=== PATIENT | male | born 1950 | race Caucasian/White ===

== ENCOUNTER 2020-05-24 15:55 | Outpatient (CLI) | payer MEDICARE, SELFPAY ==
--- NOTE | 2020-05-24 | US_ITS ---
WS: [id number] RIGHT UPPER QUADRANT ULTRASOUND HISTORY: ABNORMAL LIVER FUNCTION COMPARISON: None available. Liver: Greater than 17 cm in length. Liver is poorly visualized. Liver is enlarged but no mass identi fied. The entire liver cannot be visualized. Gallbladder: Normally distended gallbladder with no stones or wall thickening. CBD: 0.4 cm Pancreas: Not visualized. Right kidney: 11.7 cm in length. Normal size and echogenicity. No hydronephrosis or mass. Aorta and IVC: Unremarkable abdominal aorta and IVC. No ascites. US/US liver [id number] IMPRESSION: 1. Technically difficult evaluation of the RIGHT upper quadrant. 2. Enlarged liver but otherwise poorly visualized. 3. Normal gallbladder.
== END 2020-05-24 15:56 | disposition home or self-care (01) ==
PROVIDERS: PCP Family Medicine; Visit Provider Family Medicine
DX: R94.5 Abnormal results of liver function studies (principal); R16.0 Hepatomegaly, not elsewhere classified
CPT/HCPCS: 76705

== ENCOUNTER 2020-12-25 13:21 | Emergency (ER) | payer MEDICARE, SELFPAY ==
[2020-12-25 13:32] VITALS: BP 127/79; PULSE 69; RESP 16; TEMP 36.7; O2SAT 98; BMI 24.6
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
== END 2020-12-25 15:09 | disposition home or self-care (01) ==
PROVIDERS: Emergency Provider Physician Assistant; PCP Family Medicine
DX: S00.33XA Contusion of nose, initial encounter (principal); V89.2XXA Person injured in unspecified motor-vehicle accident, traffic, initial encounter
CPT/HCPCS: 70450; 70486; 72125; 99282

== ENCOUNTER → 2022-02-26 12:37 | Outpatient (BNVA) | payer MEDICARE, SELFPAY | PROVIDERS: PCP Family Medicine; Visit Provider Internal Medicine Cardiovascular Disease | DX: R55 Syncope and collapse (principal) | CPT/HCPCS: 93270 ==

== ENCOUNTER → 2022-03-20 10:23 | Outpatient (BNVA) | payer MEDICARE, SELFPAY | PROVIDERS: PCP Family Medicine; Visit Provider Specialist | DX: R56.9 Unspecified convulsions (principal) | CPT/HCPCS: 95812; 95816 ==

== ENCOUNTER 2022-04-05 07:39 | Outpatient (CLI) | payer MEDICARE, SELFPAY ==
--- NOTE | 2022-04-05 07:58 | MR_ITS ---
WS: [id number] MRI HEAD WITH CONTRAST TECHNIQUE: Sagittal T1, T2 axial, T2 axial FLAIR, axial susceptibility weighted imaging, axial diffus ion weighted images, and coronal T2 images were obtained. Pre and post-T1 axial and post T1 coronal i mages. ADC and FSPGR images. CLINICAL INFORMATION: ALTERED CONSCIOUSNESS COMPARISON: CT 12/25/20 FINDINGS: No evidence of restricted diffusion to suggest acute ischemia. Ventricular system and basal cisterns are patent. Mild small vessel changes. No significant parenchymal volume loss. A few tiny chronic lac unar infarcts in the RIGHT cerebellum. Normal vascular flow voids at the skull base. No evidence of mass or mass effect. A few tiny chronic foci of hemosiderin. Small chronic lacunar infarct in the RIGHT frontal white matter with a small amount of hemosiderin. P aranasal sinuses are well aerated. Mild mucosal thickening in the mastoid air cells. Normal posterior nasopharynx. Normal parapharyngeal fat. Temporal lobes and hippocampal formations are normal in appearance. No abnormal intracranial enhancem ent. Normal optic chiasm and pituitary infundibulum. Normal cavernous sinuses and Meckel's cave. MR/MR head wo/w con [id number] IMPRESSION: 1. No evidence of restricted diffusion to suggest acute ischemia. 2. Mild small vessel changes. No significant parenchymal volume loss. 3. 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 4. Small chronic lacunar infarct in the RIGHT frontal white matter with small amount of hemosiderin. 5. No abnormal gadolinium enhancement. Normal dural venous sinuses. 6. No other suspicious findings.
[2022-04-05] MEDS: gadobenate dimeglumine 20 mL vial IV (08:52)
== END 2022-04-05 07:40 | disposition home or self-care (01) ==
PROVIDERS: PCP Family Medicine; Visit Provider Family Medicine
DX: R41.82 Altered mental status, unspecified (principal); I63.81 Other cerebral infarction due to occlusion or stenosis of small artery
CPT/HCPCS: 70553; A9577

== ENCOUNTER 2022-05-04 16:14 | Inpatient (IN) | payer MEDICARE, SELFPAY ==
[2022-05-04 16:20] VITALS: BP 134/86; PULSE 105; RESP 18; TEMP 36.7; O2SAT 95
--- NOTE | 2022-05-04 17:02 | ED_ITS ---
HPI - Extremity Problem General: Chief complaint: Extremity Problem,Nontraumatic Stated complaint: leg and feet swelling Time Seen by Provider: 05/04/22 16:38 History of Present Illness: Mr. Mora is a 72-year-old gentleman with history of fatty liver presenting to the emergency department for bilateral lower extremity edema. He notes onset of symptoms symmetric starting in the feet approximately 2 weeks ago however this progressively worsened and is now up to the top of the thigh. He notes heaviness but no pain. No skin changes or rash. He does note increased shortness of breath and generalized malaise as well as decreased urine output. Denies similar episodes in the past. No history of heart failure. Density symptoms is moderate to severe. No other specific changes in health, exacerbating, or alleviating factors identified. Onset (ago): week(s) Pain Consistency: constant Quality: aching Radiation: none Relieving factors: nothing Exacerbating factors: nothing Associated symptoms: Reports other Review of Systems General: Reports: 10 or more systems reviewed and unremarkable except in HPI and below PFSH ED PFSH: Medical History History of CVA (cerebrovascular accident) Lacunar infarcts on MRI S/P extracorporeal shock wave therapy Ureteral calculus Surgical History Hx of shoulder surgery Family History Father Stroke Mother CAD (coronary artery disease) Social History Smoking and tobacco status: never smoked Alcohol intake: never Marital status: Current occupational status: retired Physical Exam Const: COMMON NORMALS: alert GENERAL APPEARANCE: cooperative and well developed HENMT: COMMON NORMALS: normocephalic and atraumatic HEAD & SCALP: no rmocephalic and atraumatic Eye: COMMON NORMALS: conjunctivae normal CONJUNCTIVA: Yes conjunctivae normal SCLERA: sclerae normal Neck/C-Spine: COMMON NORMALS: supple GENERAL: Yes trachea midline Resp: COMMON NORMALS: clear to auscultation bilaterally EFFORT & INSPECTION: Yes able to speak in complete sentences AUSCULTATION: clear to auscultation bilaterally Cardio: COMMON NORMALS: regular rhythm RATE: tachycardic RHYTHM: regular rhythm GI: COMMON NORMALS: Soft to palpation PALPATION: Yes Soft to palpation and No Tenderness to palpation present (GI) PERCUSSION: normal to percussion Extremity: GENERAL: Yes normal exam except as noted and Yes edema Neuro: COMMON NORMALS: moves all extremities SENSORIUM/ORIENTATION: Yes alert and No Orientation impaired Psych: COMMON NORMALS: mental status grossly normal and Normal thought process present THOUGHT PROCESS: Normal thought process present Course Vital Signs: Vital signs: Vital Signs Temperature 98.2 F 05/07/22 14:07 Pulse Rate 73 05/07/22 14:07 Respiratory Rate 17 05/07/22 14:07 Blood Pressure 146/75 05/07/22 14:07 Pulse Oximetry 90 05/07/22 14:07 Oxygen Delivery Me thod 05/06/22 16:00 Oxygen Flow Rate 2 05/07/22 11:25 MDM - Extremity (Nontraumatic) Medical Decision Making 72-year-old gentleman presenting with bilateral lower extremity edema. Symptoms have become severe and have been progressive. EKG notable for sinus rhythm with normal axis and intervals, nonspecific T- segment abnormalities, no STEMI. Labs with no significant hematologic abnormality. Metabolic end with hyponatremia, hypokalemia, JAIR. Patient is transaminitis. Negative range for delta troponin. Marked decreased albumin with proteinuria on urinalysis dipstick along with hematuria though 0 -4 microscopy. Chest x-ray with mild bibasilar opacities, no lobar consolidation or pneumothorax. CT demonstrates bowel wall thickening as well as moderate volume ascites, pleural effusions, cirrhotic liver morphology. Most likely etiology of patient's symptoms is unclear. Focused differential is primary renal respiratory hepatic etiology. The results of ED evaluation were discussed with the patient including plan for admission due to requirement for level of care not available if discharged to prevent significant worsening/deterioration. Patient agreeable with plan. Discussed with hospitalist service who was agreeable to admit patient. Medical Records I reviewed the patient's medical records. Lab Data I reviewed the patient's lab results. 05/04/22 17:20 05/04/22 17:20 Radiology Impressions Chest X-Ray 05/04/22 17:08 IMPRESSION: Mild bibasilar opacity is present, consistent with atelectasis or pneumonia. Abdomen/Pelvis CT 05/04/22 18:16 IMPRESSION: 1. There is diffuse small bowel wall thickening, consistent with infectious, ischemic, or inflammatory enteritis. This is especially prominent involving the jejunum in the left upper quadrant. 2. There is wall thickening of the ascending and transverse colon and less prominently the descending and sigmoid colon with haziness of the adjacent fat compatible with reactive changes to ascites or mild colitis. 3. There is a moderate volume of ascites, pleural effusions and anasarca type changes. Mild cirrhotic liver morphology. 4. Nonspecific bibasilar consolidation is present, consistent with atelectasis, edema, or pneumonia. COMMENTS: Consistent with the [place] [employer]'s Incidental Findings Committee white paper (J Am Ranjit Radiol 2018): Any incidental renal lesion less than 1 cm or classified as too small to characterize, or any incidental cystic renal lesion characterized as simple-appearing, is likely benign. No follow-up imaging is recommended for these lesions per consensus recommendations based on imaging criteria. Laboratory Results WBC 5.8 10^3/uL (4.0-10.0) 05/04/22 17:20 RBC 4.83 10^6/uL (4.1-5.3) 05/04/22 17:20 Hgb 15.5 g/dL (11.7-16.6) 05/04/22 17:20 Hct 46.6 % (42.0-52.0) 05/04/22 17:20 MCV 96.5 fl (80-94) H 05/04/22 17:20 MCH 32.1 pg (28.0-34.0) 05/04/22 17:20 MCHC 33.3 g/dL (30.0-36.0) 05/04/22 17:20 RDW 12.9 % (12.1-15.1) 05/04/22 17:20 Plt Count 234 10^3/cmm (130-400) 05/04/22 17:20 MPV 10.0 fL (7.4-10.4) 05/04/22 17:20 Neut % (Auto) 77.6 % 05/04/22 17:20 Lymph % (Auto) 13.0 % 05/04/22 17:20 [place] % (Auto) 6.3 % 05/04/22 17:20 Eos % (Auto) 2.6 % 05/04/22 17:20 Baso % (Auto) 0.3 % 05/04/22 17:20 Neut # (Auto) 4.53 10^3/uL (1.8-7.7) 05/04/22 17:20 Lymph # (Auto) 0.8 10^3/uL (0.8-4.8) 05/04/22 17:20 [place] # (Auto) 0.4 10^3/uL (0.2-0.9) 05/04/22 17:20 Eos # (Auto) 0.2 10^3/uL (0.0-0.8) 05/04/22 17:20 Baso # (Auto) 0.0 10^3/uL (0.0-0.1) 05/04/22 17:20 Nucleated RBC % (auto) 0 % 05/04/22 17:20 Nucleated RBCs # 0.0 /100WBC 05/04/22 17:20 PT 13.60 SECONDS (12.1-14.9) 05/04/22 17:20 INR 1.01 (0.8-1.2) 05/04/22 17:20 Sodium 130 mmol/L (136-145) L 05/04/22 17:20 Potassium 5.3 mmol/L (3.5-5.1) H 05/04/22 17:20 Chloride 98 mmol/L (98-107) 05/04/22 17:20 Carbon Dioxide 28 mmol/L (22-29) 05/04/22 17:20 Anion Gap 9.3 (5-19) 05/04/22 17:20 BUN 58 mg/dL (8-23) H 05/04/22 17:20 Creatinine 1.4 mg/dL (0.7-1.2) H 05/04/22 17:20 GFR Calculation Not Reportable 05/04/22 17:20 Glucose 117 mg/dL (65-115) H 05/04/22 17:20 Estimat Average Glucose 103 05/04/22 17:20 Estimat Average Glucose Cancelled 05/04/22 17:20 Hemoglobin A1c 5.2 % (4.0-6.0) 05/04/22 17:20 Hemoglobin A1c Cancelled 05/04/22 17:20 Calculated Osmolality 287 mOsm/kg (285-295) 05/04/22 17:20 Lactate 1.3 mmol/L (0.5-2.2) 05/04/22 17:20 Calcium 8.0 mg/dL (8.5-10.5) L 05/04/22 17:20 Magnesium 3.0 mg/dL (1.7-2.3) H 05/04/22 17:20 Total Bilirubin 0.2 mg/dL (0.15-1.2) 05/04/22 17:20 AST 55 U/L (0-40) H 05/04/22 17:20 ALT 46 U/L (0-41) H 05/04/22 17:20 Alkaline Phosphatase 318 U/L (40-130) H 05/04/22 17:20 Troponin T Baseline 46 ng/L (0-15) H 05/04/22 17:20 Troponin T 120 Minute 42.92 ng/L (0-15) H 05/04/22 19:37 Delta Troponin T -3.08 ABS# (0-10) L 05/04/22 19:37 NT-Pro-B Natriuret Pep 764 pg/mL (0-125) H 05/04/22 17:20 Total Protein 4.1 g/dL (6.6-8.7) L 05/04/22 17:20 Albumin 1.7 g/dL (3.5-5.2) L 05/04/22 17:20 Globulin 2.4 g/dL (1.3-4.6) 05/04/22 17:20 TSH 2.34 uIU/mL (0.27-4.20) 05/04/22 17:20 Urine Color Yellow (Yellow) 05/04/22 18:00 Urine Appearance Sl hazy (CLEAR) A 05/04/22 18:00 Urine pH 5 (5-7) 05/04/22 18:00 Ur Specific [place] 1.025 (1.005-1.030) 05/04/22 18:00 Urine Protein 3+ (Negative) H 05/04/22 18:00 Urine Glucose (UA) Norm (Normal) 05/04/22 18:00 Urine Ketones Negative (Negative) 05/04/22 18:00 Urine Blood 2+ (Negative) H 05/04/22 18:00 Urine Nitrate Negative (Negative) 05/04/22 18:00 Urine Bilirubin Neg (Negative) 05/04/22 18:00 Urine Urobilinogen Norm mg/dL (Negative) 05/04/22 18:00 Ur Leukocyte Esterase Negative (Negative) 05/04/22 18:00 Urine RBC 0-4 /hpf (0-2) H 05/04/22 18:00 Urine WBC None /hpf (0-5) 05/04/22 18:00 Ur Squamous Epith Cells None /hpf (0-5) 05/04/22 18:00 Amorphous Sediment Trace /hpf 05/04/22 18:00 Urine Bacteria Trace /hpf (NONE) 05/04/22 18:00 Fine Granular Casts 10-15 /lpf H 05/04/22 18:00 U Random Total Protein 510 mg/dL 05/04/22 20:55 Urine Creatinine 104 mg/dL (39-259) 05/04/22 20:55 Complement C3 187 mg/dL (90-180) H 05/04/22 17:20 Complement C4 59 mg/dL (10-40) H 05/04/22 17:20 Hepatitis A IgM Ab Non-reactive (Nonreactive) 05/04/22 17:20 Hep Bs Antigen Non-reactive (Nonreactive) 05/04/22 17:20 Hep Bs Antigen Non-reactive (Nonreactive) 05/04/22 17:20 Hep Bs Antibody 121.5 (11.5-1000) 05/04/22 17:20 Hep B Core IgM Ab Non-reactive (Nonreactive) 05/04/22 17:20 Hepatitis C Antibody Non-reactive (Nonreactive) 05/04/22 17:20 Discharge Plan Discharge Patient Disposition: Admitted As Inpatient Admit Provider: Hever Murphy Clinical Impression: Bilateral leg edema, Creatinine elevation, Hyperkalemia, Hyponatremia, Transaminitis, Hypoalbuminemia, Cirrhosis, Enterocolitis Condition: Stable Discharge Diet: Low Salt Discharge Activity: Increase activity as tolerated Coding Level of Care Code ED Dye House Wheel Operator for Bravo Martinez
--- NOTE | 2022-05-04 17:08 | ECG_ITS ---
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 Measurements Intervals [place] Rate: 90 P: -30 TN: 179 QRS: 78 QRSD: 86 T: 7 QT: 321 QTc: 393 Interpretive Statements SINUS RHYTHM LOW QRS VOLTAGE IN PRECORDIAL LEADS [QRS DEFLECTION < 1.0 mV IN CHEST LEADS] POSSIBLE ANTERIOR MYOCARDIAL INFARCTION , PROBABLY OLD [30 ms Q WAVE IN V3/V4, OR R < 0.2 mV IN V4] No previous ECG available for comparison Electronically Signed On 05-04-2022 19:33:47 OPTO MECHANICAL TECHNICIAN by Ana Blackwell M.D. [id number]
--- NOTE | 2022-05-04 17:08 | XRR_ITS ---
PROCEDURE INFORMATION: Exam: XR Chest Exam date and time: 05/04/2022 5:20 PM Age: 72 years old Clinical indication: Shortness of breath; Additional info: SOB TECHNIQUE: Imaging protocol: Radiologic exam of the chest. Views: 1 view. COMPARISON: CT cervical spin wo con* [id number] 12/25/2020 1:55 PM FINDINGS: Lungs: Mild bibasilar opacity is present, consistent with atelectasis or pneumonia. Upper lobes are clear. Pleural spaces: There are small bilateral pleural effusions. Heart/Mediastinum: The heart is enlarged. Bones/joints: No acute abnormality. XR/XR chest 1V portable [id number] IMPRESSION: Mild bibasilar opacity is present, consistent with atelectasis or pneumonia.
[2022-05-04 17:33] LABS: Basophils % 0.3 %; Eosinophils # 0.2 10^3/uL (0.0-0.8); Eosinophils % 2.6 %; Hematocrit 46.6 % (42.0-52.0); Hemoglobin 15.5 g/dL (11.7-16.6); Lymphocytes # 0.8 10^3/uL (0.8-4.8); Mean Corpuscular HGB Conc 33.3 g/dL (30.0-36.0); Mean Corpuscular Hemoglobin 32.1 pg (28.0-34.0); Mean Corpuscular Volume 96.5 fl (80-94); Monocytes # 0.4 10^3/uL (0.2-0.9); Monocytes % 6.3 %; Neutrophils # 4.53 10^3/uL (1.8-7.7); Neutrophils % 77.6 %; Nucleated Red Blood Cells % 0 %; Platelet Count 234 10^3/cmm (130-400); Red Blood Count 4.83 10^6/uL (4.1-5.3); Red Cell Distribution Width 12.9 % (12.1-15.1); White Blood Count 5.8 10^3/uL (4.0-10.0)
[2022-05-04 17:59] LABS: Lactate (Lactic Acid level) 1.3 mmol/L (0.5-2.2)
[2022-05-04 18:00] VITALS: BP 142/90; PULSE 98; O2SAT 94
[2022-05-04 18:03] LABS: Troponin(5th) Baseline 46 ng/L (0-15)
[2022-05-04 18:11] LABS: Alanine Aminotransferase 46 U/L (0-41); Albumin Level 1.7 g/dL (3.5-5.2); Alkaline Phosphatase 318 U/L (40-130); Anion Gap 9.3 (5-19); Aspartate Amino Transferase 55 U/L (0-40); Blood Urea Nitrogen 58 mg/dL (8-23); Carbon Dioxide 28 mmol/L (22-29); Chloride 98 mmol/L (98-107); Globulin 2.4 g/dL (1.3-4.6); Glucose 117 mg/dL (65-115); NT Pro B Type Natriuretic Pept 764 pg/mL (0-125); Osmolality Calculated 287 mOsm/kg (285-295); Potassium 5.3 mmol/L (3.5-5.1); Sodium 130 mmol/L (136-145); Total Bilirubin 0.2 mg/dL (0.15-1.2); Total Protein 4.1 g/dL (6.6-8.7)
--- NOTE | 2022-05-04 18:16 | CTR_ITS ---
PROCEDURE INFORMATION: Exam: CT Abdomen And Pelvis With Contrast Exam date and time: 05/04/2022 6:24 PM Age: 72 years old Clinical indication: Abdominal tenderness and bloating; Additional info: Abd fullness, transaminitis, HX liver disease TECHNIQUE: Imaging protocol: Computed tomography of the abdomen and pelvis with contrast. Radiation optimization: All CT scans at this facility use at least one of these dose optimization techniques: automated exposure control; mA and/or kV adjustment per patient size (includes targeted exams where dose is matched to clinical indication); or iterative reconstruction. Contrast material: OMNI 350; Contrast volume: 100 ml; Contrast route: INTRAVENOUS (IV); Other protocol: This patient has received 0 known CTs and 0 known cardiac nuclear medicine studies in the 12 months prior to the current study. COMPARISON: CT kidney stone [id number] 09/24/2016 10:46 AM RADIATION DOSE METRICS: Total DLP (mGy-cm): 1062.03 FINDINGS: Lungs: Nonspecific bibasilar consolidation is present, consistent with atelectasis, edema, or pneumonia. Pleural spaces: There is a small left pleural effusion and a small to moderate sized right pleural effusion. Heart: The heart is enlarged. Diaphragm: A small hiatal hernia is present. Liver: The liver has a finely nodular contour, consistent with cirrhosis. Gallbladder and bile ducts: Normal. No calcified stones. No ductal dilation. Pancreas: The pancreas is normal. Spleen: The spleen is normal. Adrenal glands: The adrenal glands are normal. Kidneys and ureters: There is no evidence of hydronephrosis. There is no evidence of renal calcifications. Two separate 1.8 cm simple cysts midpole right kidney are noted. Stomach and bowel: There is diffuse small bowel wall thickening, consistent with infectious, ischemic, or inflammatory enteritis. This is especially prominent involving the jejunum in the left upper quadrant. There is wall thickening of the ascending and transverse colon and less prominently the descending and sigmoid colon with haziness of the adjacent fat compatible with reactive changes to ascites or mild colitis. There is no evidence of intestinal perforation or obstruction. Appendix: The appendix is not definitively identified. However, there is no CT evidence of a right lower quadrant inflammatory process. Intraperitoneal space: There is a moderate volume of ascites. No abscess or free intraperitoneal air. Vasculature: Unremarkable.No abdominal aortic aneurysm. Lymph nodes: Unremarkable.No enlarged lymph nodes. There is a unchanged densely calcified lymph node in the mesentery left lower quadrant. Urinary bladder: There is nonspecific bladder wall thickening. This may be related to incomplete distention. Reproductive: The prostate demonstrates mild nonspecific enlargement. The seminal vesicles are normal. Bones/joints: Unremarkable. No acute fracture. Soft tissues: Anasarca type changes are noted. CT/CT abdomen pelvis w con* [id number] IMPRESSION: 1. There is diffuse small bowel wall thickening, consistent with infectious, ischemic, or inflammatory enteritis. This is especially prominent involving the jejunum in the left upper quadrant. 2. There is wall thickening of the ascending and transverse colon and less prominently the descending and sigmoid colon with haziness of the adjacent fat compatible with reactive changes to ascites or mild colitis. 3. There is a moderate volume of ascites, pleural effusions and anasarca type changes. Mild cirrhotic liver morphology. 4. Nonspecific bibasilar consolidation is present, consistent with atelectasis, edema, or pneumonia. COMMENTS: Consistent with the [place] [employer]'s Incidental Findings Committee white paper (J Am Ranjit Radiol 2018): Any incidental renal lesion less than 1 cm or classified as too small to characterize, or any incidental cystic renal lesion characterized as simple-appearing, is likely benign. No follow-up imaging is recommended for these lesions per consensus recommendations based on imaging criteria.
[2022-05-04] MEDS: iohexol 350 mg/mL 500 mL Btl (per mL) IV (18:28)
[2022-05-04 18:43] LABS: Add Urine Microscopic? YES; Bilirubin Urine Neg (Negative); Blood Urine 2+ (Negative); Glucose Urine UA Norm (Normal); Ketones Urine Negative (Negative); Leukocyte Esterase Urine Negative (Negative); Nitrate Urine Negative (Negative); Protein Urine 3+ (Negative); Specific Gravity, Urine 1.025 (1.005-1.030); Urine Appearance SL Hazy (CLEAR); Urine Color Yellow (Yellow); Urobilinogen Urine Norm (Negative); pH Urine 5 (5-7)
[2022-05-04 18:48] LABS: Amorphous Sediment Urine TRACE /hpf; Bacteria Urine TRACE /hpf; RBC Urine 0-4 /hpf (0-2)
[2022-05-04 18:49] LABS: Add Urine Culture? No
[2022-05-04 19:52] LABS: INR 1.01 (0.8-1.2)
--- NOTE | 2022-05-04 20:00 | PM.HP ---
Providers/Chief Complaint Admitting Physician: Hever Murphy MD Primary Care Provider: Gregory Wilson MD Chief Complaint: leg and feet swelling History of Present Illness Zurdo Mora is a 72 year old male who presents to the hospital with history of swelling in his feet and legs, progressively increasing over the last month and now with swelling of his abdomen. He reports no fevers. He has had no nausea, vomiting, or diarrhea. No history of this ever happening in the past. No chest discomfort. No history of heart failure. His only medical problem has been a history of fatty liver, and some asymptomatic stroke that was picked up on imaging several years ago. He reports no significant medication use other than aspirin daily. reports he had some confusion in the past, but none currently. He has had some shortness of breath as well. Review of Systems General: Reports: 10 or more systems reviewed and unremarkable except in HPI and below Const: Reports: fatigue; Denies: fever(s) or chills Eyes: Denies: change in vision ENMT: Denies: throat pain Card: Reports: edema, swelling of feet/ankles and dyspnea on exertion; Denies: chest pain Resp: Reports: dyspnea; Denies: productive cough or non-productive cough GI: Denies: abdominal pain, nausea, vomiting, hematochezia or melena : Reports: urinary frequency and urinary dribbling; Denies: flank pain Musc: Denies: neck pain Skin/Breast: Denies: rash Neuro: Denies: headache(s) Psych: Denies: anxiety or depression Endo: Denies: polyuria Medications/Allergies Home Medications Medication Instructions Recorded Confirmed Last Taken Type lactulose 10 gram/15 mL oral 30 g PO BID 03/20/22 03/20/22 Unknown History solution Allergies Allergy/AdvReac Type Severity Reaction Status Date / Time No Known Allergies Allergy Unverified 03/20/22 13:27 PFSH Acute PFSH: Medical History (Updated 05/04/22 @ 20:17 by Hever Murphy MD) History of CVA (cerebrovascular accident) Lacunar infarcts on MRI S/P extracorporeal shock wave therapy Ureteral calculus Surgical History (Updated 05/04/22 @ 20:11 by Hever Murphy MD) Hx of shoulder surgery Family History Father Stroke Mother CAD (coronary artery disease) Social History Smoking and tobacco status: never smoked Alcohol intake: never Marital status: Current occupational status: retired Vitals/I&O/Wt Last Vital Signs Temp 98.0 F 05/04/22 16:20 Pulse 98 05/04/22 18:00 Resp 18 05/04/22 16:20 BP 142/90 05/04/22 18:00 Pulse Ox 94 05/04/22 18:00 O2 Del Method 05/04/22 18:00 Weight last 48 hrs Weight 81.647 kg Physical Exam Narrative: General exam is a white male, conversant, in no distress but markedly swollen HEENT: Atraumatic normocephalic. Pupils equally round. Oropharynx clear. Neck is supple no lymphadenopathy thyromegaly Cardiovascular regular rate and rhythm, heart sounds distant, no murmur Lungs clear no wheezing or crackles Abdomen is soft.'s ascites with fluid wave is noted. Nontender. No obvious organomegaly exam is deferred Extremities show 3+ edema bilaterally. No erythema. No cyanosis or clubbing. Skin no rash Neuro no obvious focal deficits Data 05/04/22 17:20 05/04/22 17:20 Other Labs: INR is 1.01 Calcium 8.0 AST 55, ALT 46, alk phos 318 Troponin 46 BNP 764 Albumin 1.7 Urinalysis with 3+ protein, 0-4 reds, 10-15 granular casts Abdomen pelvis CT demonstrated some diffuse small bowel wall thickening. Moderate ascites, pleural effusions, anasarca. Mild cirrhosis of liver noted. I reviewed this as well. Some bladder distention Chest x-ray by my read demonstrates no infiltrate, blunting of bilateral hemidiaphragms likely secondary to effusions EKG which I reviewed demonstrates sinus rhythm, normal axis, poor R wave progression cannot rule out anterior MN in the past A&P Assessment and plan (1) Anasarca: Patient presents with significant anasarca. 40 mg of Lasix IV now and every 12 hours with monitoring renal function closely. Although he has potential past history of cirrhosis his platelet count is normal, his INR is normal. I am worried he may have nephrotic syndrome as the etiology of this secondary to his 3+ proteinuria. See notations under hypoalbuminemia We will obtain echocardiogram (2) Hyperkalemia: Lasix IV now BMP tomorrow morning (3) Acute kidney injury: This may be secondary to fluid overload Monitor renal function closely with diuresis Bladder scan to check postvoid residual (4) Transaminitis: This could be secondary to fluid overload. Monitor with diuresis Check hepatitis panel (5) Hypoalbuminemia: Patient with significant hypoalbuminemia His degree of cirrhosis may not explain this He has 3+ proteinuria in his urine Spot urine protein and creatinine. Nephrology consultation Blood sugar is not significantly elevated but will check hemoglobin A1c Lipid profile in the morning (6) Cirrhosis: INR is normal. Platelet count is normal Check ammonia level as he has past history of confusion Plan Other medical problems as outlined in past medical history Full code currently Heparin for DVT prophylaxis Attestations Medical Necessity Statement*: Will require greater than 2 midnight stay secondary to significant anasarca requiring IV diuresis Diagnoses Anasarca R60.1 Hyperkalemia E87.5 Acute kidney injury N17.9 Transaminitis R74.01 Hypoalbuminemia E88.09 Cirrhosis K74.60 Time Spent (min) 55
[2022-05-04 20:21] VITALS: BP 160/93; PULSE 84; RESP 16; O2SAT 94
[2022-05-04] MEDS: FUROsemide 10 mg/mL SDV 4mL 40 MG IVP (20:34)
[2022-05-04 20:46] LABS: Troponin 5 2HR 42.92 ng/L (0-15)
[2022-05-04 21:03] LABS: Troponin 5 2HR Delta -3.08 ABS# (0-10)
--- NOTE | 2022-05-04 21:03 | ECG_ITS ---
[facility] Test Date: 2022-05-04 Pat Name: Zurdo Mora Department: Room: Gender: Male Associate Account Executive: : 1950 Requested By: Jake Jeronimo Order Number: [id number] Juliocesar MD: Ana Blackwell M.D. Measurements Intervals [place] Rate: 81 P: -27 ND: 199 QRS: 70 QRSD: 84 T: 29 QT: 350 QTc: 407 Interpretive Statements SINUS RHYTHM LOW QRS VOLTAGE IN PRECORDIAL LEADS [QRS DEFLECTION < 1.0 mV IN CHEST LEADS] POSSIBLE ANTERIOR MYOCARDIAL INFARCTION , PROBABLY OLD [30 ms Q WAVE IN V3/V4, OR R < 0.2 mV IN V4] Compared to ECG 05/04/2022 17:33:38 No significant changes Electronically Signed On 05-05-2022 22:14:10 ALUMINUM SIDING APPLICATOR by Ana Blackwell M.D. [id number]
[2022-05-04 21:04] LABS: Thyroid Stimulating Hormone 2.34 uIU/mL (0.27-4.20)
[2022-05-04 21:23] LABS: Urine Creatinine 104 mg/dL (39-259)
[2022-05-04 21:36] LABS: Urine Protein Random 510 mg/dL
[2022-05-04 21:45] VITALS: BP 136/86; PULSE 73; RESP 16; TEMP 36.5; O2SAT 90
[2022-05-04] MEDS: heparin 5,000 unit/mL INJ 1 mL 5000 UNIT SUBCUT (22:00)
--- NOTE | 2022-05-04 22:51 | ECG_ITS ---
[facility] Test Date: 2022-05-04 Pat Name: Zurdo Mora Department: Room: 250 Gender: Male Cyber Defense Forensics Analyst: : 1950 Requested By: Jake Jeronimo Order Number: [id number] Juliocesar MD: Ana Blackwell M.D. Measurements Intervals [place] Rate: 74 P: 118 MO: 198 QRS: 47 QRSD: 86 T: 47 QT: 366 QTc: 407 Interpretive Statements SINUS RHYTHM LOW QRS VOLTAGE IN PRECORDIAL LEADS [QRS DEFLECTION < 1.0 mV IN CHEST LEADS] POSSIBLE ANTERIOR MYOCARDIAL INFARCTION , PROBABLY OLD [30 ms Q WAVE IN V3/V4, OR R < 0.2 mV IN V4] Compared to ECG 05/04/2022 21:03:12 No significant changes Electronically Signed On 05-05-2022 22:14:21 MANUFACTURING APPLICATIONS ENGINEER by Ana Blackwell M.D. [id number]
[2022-05-04 23:37] LABS: Estmated Average Glucose 103; Hemoglobin A1C 5.2 % (4.0-6.0)
[2022-05-04 23:53] LABS: Troponin 5 6HR 45.01 ng/L (0-15)
[2022-05-05 00:09] LABS: Troponin 5 6HR Delta -0.99 ng/L (0-12)
[2022-05-05 01:09] LABS: Hepatitis A Antibody IgM Non-Reactive (Nonreactive); Hepatitis B Core IgM Non-Reactive (Nonreactive); Hepatitis B Surface Antigen Non-Reactive (Nonreactive); Hepatitis C Virus Antibody Non-Reactive (Nonreactive)
[2022-05-05 03:14] LABS: Complement C3 187 mg/dL (90-180)
[2022-05-05 03:24] LABS: Hepatitis B Surface AB 121.5 (11.5-1000); Hepatitis B Surface Antigen Non-Reactive (Nonreactive)
[2022-05-05 04:00] VITALS: BP 159/94; PULSE 81; RESP 16; TEMP 36.4; O2SAT 93
[2022-05-05 05:03] LABS: Basophils % 0.8 %; Eosinophils # 0.2 10^3/uL (0.0-0.8); Eosinophils % 4.2 %; Hematocrit 40.7 % (42.0-52.0); Hemoglobin 13.8 g/dL (11.7-16.6); Lymphocytes % 19.5 %; Mean Corpuscular HGB Conc 33.9 g/dL (30.0-36.0); Mean Corpuscular Hemoglobin 32.5 pg (28.0-34.0); Mean Corpuscular Volume 95.8 fl (80-94); Mean Platelet Volume 9.8 fL (7.4-10.4); Monocytes # 0.4 10^3/uL (0.2-0.9); Monocytes % 8.5 %; Neutrophils # 3.36 10^3/uL (1.8-7.7); Neutrophils % 66.8 %; Nucleated Red Blood Cells % 0 %; Platelet Count 198 10^3/cmm (130-400); Red Blood Count 4.25 10^6/uL (4.1-5.3)
[2022-05-05] MEDS: albumin 25 G/100 ML BAG 60 G IV ×3 (05:03→19:58)
[2022-05-05 05:15] LABS: Ammonia 17 umol/L (16-60)
[2022-05-05 05:32] LABS: Alanine Aminotransferase 36 U/L (0-41); Albumin Level 1.4 g/dL (3.5-5.2); Alkaline Phosphatase 244 U/L (40-130); Anion Gap 9.5 (5-19); Aspartate Amino Transferase 37 U/L (0-40); Blood Urea Nitrogen 48 mg/dL (8-23); Calcium 7.6 mg/dL (8.5-10.5); Carbon Dioxide 25 mmol/L (22-29); Chloride 99 mmol/L (98-107); Globulin 2.6 g/dL (1.3-4.6); Glucose 88 mg/dL (65-115); Osmolality Calculated 280 mOsm/kg (285-295); Potassium 4.5 mmol/L (3.5-5.1); Sodium 129 mmol/L (136-145); Total Bilirubin 0.2 mg/dL (0.15-1.2)
[2022-05-05 05:33] LABS: Hepatitis B Surface AB 98.1 (11.5-1000); Hepatitis B Surface Antigen Non-Reactive (Nonreactive)
[2022-05-05 05:34] LABS: Chol HDL Ratio 6.34 mg/dL (1.0-5.00); Cholesterol 260 mg/dL (0-200); Complement C3 151 mg/dL (90-180); HDL Cholesterol 41 mg/dL (60-100); LDL Cholesterol Calculated 190 mg/dL (50-129); LDL HDL Ratio 4.63 RATIO (0.00-3.22); Triglycerides 144 mg/dL (0-150)
--- NOTE | 2022-05-05 06:00 | USCV_ITS ---
Zurdo Mroa Age: 72 Gender: M : 1950 Exam Date: 05/05/2022 08:38 Ordering Phys: Hever Murphy MD Technologist: SAMUEL Exam Location: [facility] Indication: elevated bnp BP: / HR: 113 Rhythm: Sinus Technical Quality: Adequate MEASUREMENTS (Male / Female) Normal Values 2D ECHO LV Diastolic Diameter PLAX 5.4 cm 4.2 - 5.9 / 3.9 - 5.3 cm LV Systolic Diameter PLAX 3.3 cm IVS Diastolic Thickness 0.8 cm 0.6 - 1.0 / 0.6 - 0.9 cm IVS Systolic Thickness 1.4 cm LVPW Diastolic Thickness 0.7 cm 0.6 - 1.0 / 0.6 - 0.9 cm LVPW Systolic Thickness 1.3 cm LVOT Diameter 2.5 cm LV Ejection Fraction 2D Teich 67.8 % LV Ejection Fraction MOD 2C 64.1 % LV Ejection Fraction 2C AL 65.8 % LA Diameter 4.2 cm IVC Diameter 1.5 cm M-MODE Aortic Annulus Diameter 3.9 cm LA Ao Ratio MM 1.1 MV E Point Septal Separation 0.4 cm DOPPLER AV Peak Velocity 104.0 cm/s LVOT Peak Velocity 93.0 cm/s AV Area Cont Eq vti 5.1 cm squared AV Area Cont Eq pk 4.6 cm squared MV Area PHT 3.1 cm squared Mitral E to A Ratio 0.8 MV E' Velocity 37.0 cm/s Mitral E to MV E' Ratio 7.8 Mitral E to LV E' Lateral Ratio 6.8 Mitral E to LV E' Septal Ratio 9.1 TR Peak Velocity 230.0 cm/s TR Peak Gradient 21.2 mmHg TV Peak E Velocity 90.0 cm/s Right Atrial Pressure 3.0 mmHg Pulmonary Artery Systolic Pressu 24.2 mmHg PV Peak Velocity 123.0 cm/s FINDINGS Left Ventricle Normal left ventricular size and systolic function, EF 64 %. No regional wall motion abnormalities. Grade I/IV diastolic dysfunction (abnormal relaxation filling pattern), normal to mildly elevated filling pressures. Right Ventricle The right ventricle is normal in size and function. Right Atrium The right atrium is normal in size. Left Atrium Mildly increased left atrial size. Mitral Valve Thickened mitral valve. Mild mitral valve regurgitation. Aortic Valve Mild aortic valve regurgitation. Tricuspid Valve Trace tricuspid valve regurgitation. Pulmonic Valve Pulmonic valve not well visualized. Pericardium Normal pericardium without effusion. Aorta Normal ascending aorta dimension. IVC Normal inferior vena cava. CONCLUSIONS Normal left ventricular size and systolic function, EF 64 %. No regional wall motion abnormalities. Grade I/IV diastolic dysfunction (abnormal relaxation filling pattern), normal to mildly elevated filling pressures. Thickened mitral valve. Mild mitral valve regurgitation. Mildly increased left atrial size. Mild aortic valve regurgitation. Trace tricuspid valve regurgitation. Estimated pulmonary artery peak systolic pressure 24 mm of Hg There is no pericardial effusion. There are no intracardiac masses. No similar previous studies are available for comparison Dr Ana Blackwell MD [facility] (Electronically Signed) Final Date: 05 May 2022 13:48 S
[2022-05-05 07:56] VITALS: BP 143/83; PULSE 71; RESP 18; TEMP 36.5; O2SAT 92
--- NOTE | 2022-05-05 08:04 | PC.PHAR ---
pt states he only takes aspirin 81mg qam
[2022-05-05] MEDS: FUROsemide 10 mg/mL SDV 4mL 40 MG IVP ×2 (08:59→19:58)
[2022-05-05] MEDS: heparin 5,000 unit/mL INJ 1 mL 5000 UNIT SUBCUT ×2 (08:59→21:13)
[2022-05-05] MEDS: aspirin 81 mg EC Tablet PO (08:59)
--- NOTE | 2022-05-05 10:27 | PM.PN ---
Subjective Subjective: He is doing slightly better than he did in the ER. He is still quite swollen in lower extremities. Edema reaching up to thighs and even lower belly. Vitals/I&O/Wt Last Vital Signs Temp 97.7 F 05/05/22 07:56 Pulse 71 05/05/22 07:56 Resp 18 05/05/22 07:56 BP 143/83 05/05/22 07:56 Pulse Ox 92 05/05/22 07:56 O2 Del Method 05/05/22 07:56 05/04/22 05/05/22 05/05/22 22:59 06:59 14:59 Intake Total 340 / 340 Output Total 200 / 200 250 / 450 Balance -200 / -200 -250 / -450 340 / 340 Weight last 48 hrs Weight 81.647 kg Physical Exam Narrative: at bedside Const: COMMON NORMALS: patient oriented x3 and alert GENERAL APPEARANCE: cooperative ORIENTATION/CONSCIOUSNESS: Yes awake HENMT: COMMON NORMALS: oropharynx normal Neck/C-Spine: COMMON NORMALS: no JVD Resp: COMMON NORMALS: normal respiratory effort and clear to auscultation bilaterally AUSCULTATION: clear to auscultation bilaterally Cardio: COMMON NORMALS: no JVD, regular rhythm, S1 normal heart sound present, S2 normal heart sound present and No murmurs present (Cardio) RHYTHM: regular rhythm HEART SOUNDS: S1 normal heart sound present and S2 normal heart sound present GI: COMMON NORMALS: Normal to inspection, nondistended, normoactive bowel sounds present, Soft to palpation and non-tender PALPATION: Yes Soft to palpation Extremity: COMMON NORMALS: no joint enlargement GENERAL: Yes edema (2-3+ LE, tapering proximally, but reaching up to proximal thighs) Neuro: COMMON NORMALS: patient oriented x3 and moves all extremities SENSORIUM/ORIENTATION: Yes alert Skin: COMMON NORMALS: no rashes or lesions noted GENERAL SKIN EXAM: no rashes or lesions noted Data 05/05/22 04:35 05/05/22 04:35 A&P Assessment and plan (1) Anasarca: STEPH reviewed, mildly negative balance, but not sure that is charted correctly. Intake charted as 340, output 450. Continue Lasix IV 40 mg every 12 hours, monitor I&O, weights. Admitting physician note reviewed. Pending echocardiogram. Follow-up. Significant hypoalbuminemia, albumin 1.4. In the setting of cirrhosis. Not hypotensive. Pending nephrology assessment for consideration of causes including HRS, nephrotic syndrome. Anasarca. 40 mg of Lasix IV now and every 12 hours with monitoring renal function closely. Although he has potential past history of cirrhosis his platelet count is normal, his INR is normal. I am worried he may have nephrotic syndrome as the etiology of this secondary to his 3+ proteinuria. See notations under hypoalbuminemia We will obtain echocardiogram CT scan reviewed also noted moderate ascites, pleural effusions and anasarca (2) Hyperkalemia: Resolved. With JAIR, follow-up potassium, at risk of electrolyte abnormalities especially with IV diuresis, with risk of arrhythmia. Add cardiac monitoring. Requesting repeat BMP tomorrow morning (3) Acute kidney injury: Continue diuresis. So far renal function allowing, no worsening creatinine, but without improvement needed. Creatinine reviewed at 1.4. BUN slightly better at 48. Reassessment chemistry panel for renal function requested. Monitor electrolytes, acid-base balance. Anion gap noted 9.5, bicarb 25. Magnesium 3. This may be secondary to fluid overload Monitor renal function closely with diuresis Received results of bladder scan CT scan reviewed, without signs of hydronephrosis (4) Transaminitis: This could be secondary to fluid overload. Monitor with diuresis Check hepatitis panel (5) Hypoalbuminemia: Appreciate nephrology consultation. Albumin slightly worse today down to 1.4. Requested follow-up. Lipid profile reviewed, Patient with significant hypoalbuminemia His degree of cirrhosis may not explain this He has 3+ proteinuria in his urine Spot urine protein and creatinine. Nephrology consultation Blood sugar is not significantly elevated but will check hemoglobin A1c Lipid profile in the morning (6) Cirrhosis: INR is normal. Platelet count is normal Ammonia level reviewed normal. Noted alkaline phosphatase elevation, today slightly better down to 244. May be stasis secondary to fluid overload. Follow-up echocardiogram. Continue diuresis. Follow-up liver function. Plan On CT additionally noted for thickening of ascending and transverse colon less prominently distended and sigmoid colon with haziness of adjacent fat compatible with reactive changes to ascites or mild colitis. He does not endorse any GI symptoms at this time. Continue to monitor for changes. Other medical problems as outlined in past medical history Full code currently Heparin for DVT prophylaxis Attestations Medical Necessity Statement*: Continue admission for assessment management of anasarca, JAIR, hypoalbuminemia, proteinuria in a gentleman with underlying liver cirrhosis. Diagnoses Anasarca R60.1 Hyperkalemia E87.5 Acute kidney injury N17.9 Transaminitis R74.01 Hypoalbuminemia E88.09 Cirrhosis K74.60
[2022-05-05 11:47] LABS: Creatine Phosphokinase 216 U/L (39-308)
[2022-05-05 12:00] VITALS: BP 134/79; PULSE 75; RESP 18; TEMP 36.5; O2SAT 94
[2022-05-05 16:00] VITALS: BP 143/80; PULSE 74; RESP 20; TEMP 36.4; O2SAT 95
--- NOTE | 2022-05-05 16:13 | PM.CONSULT ---
Providers/Reason For Consult Consulting Physician/Specialty*: /Nephrology Reason for Consult*: JAIR Attending Physician: Luther Stern Primary Care Provider: Gregory Wilson MD History of Present Illness History of Present Illness 72-year-old male with past medical history of fatty liver, history of CVA, presented to the emergency department, complaining of progressively worsening edema in the lower extremities as well as abdomen. Patient reports that he is aware of having fatty liver but was not told that he has liver cirrhosis. On further work-up in the ED patient underwent CT scan of abdomen and pelvis that revealed presence of liver cirrhosis as well as moderate ascites. Noted to have bilateral lower extremity edema. CT showed no hydronephrosis on both kidneys. His creatinine was elevated at 1.4, urine analysis showed 2+ protein and 2+ blood. Review of Systems Narrative: Other ROs negative Medications/Allergies Home Medications Medication Instructions Recorded Confirmed Last Taken Type aspirin 81 mg tablet,delayed 81 mg PO QAM 05/05/22 05/05/22 Unknown History release Allergies Allergy/AdvReac Type Severity Reaction Status Date / Time No Known Allergies Allergy Verified 05/05/22 08:04 Current Medications Generic Name Dose Route Start Last Admin Trade Name Freq PRN Reason Stop Dose Admin Aspirin 81 mg 05/05/22 09:00 05/05/22 08:59 Aspirin 81 Mg Ec Tablet PO 81 mg DAILY KIMMIE Administration Furosemide 40 mg 05/04/22 20:30 05/05/22 08:59 Furosemide 10 Mg/Ml Sdv 4ml IVP 40 mg Q12H KIMMIE Administration Heparin Sodium (Porcine) 5,000 unit 05/04/22 21:45 05/05/22 08:59 Heparin 5,000 Unit/Ml Inj 1 Ml SUBCUT 5,000 unit Q12H KIMMIE Administration Albumin Human 25 g in 100 mls @ 60 mls/hr 05/05/22 04:45 05/05/22 13:38 Albumin IV Infused Q8H KIMMIE Infusion PFSH Acute PFSH: Medical History (Updated 05/04/22 @ 20:17 by Hever Murphy MD) History of CVA (cerebrovascular accident) Lacunar infarcts on MRI S/P extracorporeal shock wave therapy Ureteral calculus Surgical History (Updated 05/04/22 @ 20:11 by Hever Murphy MD) Hx of shoulder surgery Family History Father Stroke Mother CAD (coronary artery disease) Social History Smoking and tobacco status: never smoked Alcohol intake: never Marital status: Current occupational status: retired Vitals/I&O/Wt Last Vital Signs Temp 97.5 F L 05/05/22 16:00 Pulse 74 05/05/22 16:00 Resp 20 H 05/05/22 16:00 BP 143/80 05/05/22 16:00 Pulse Ox 95 05/05/22 16:00 O2 Del Method 05/05/22 16:00 05/05/22 05/05/22 05/05/22 06:59 14:59 22:59 Intake Total 440 / 440 Output Total 250 / 450 550 / 550 Balance -250 / -450 -110 / -110 Weight last 48 hrs Weight 81.647 kg Physical Exam Narrative: Patient is awake and alert, no acute distress HEENT, PERRLA Lungs clear to auscultation per report Abdomen distended with ascites per report 2+ lower extremity edema per report Data 05/05/22 04:35 05/05/22 04:35 A&P Assessment and plan (1) Anasarca: (2) Acute kidney injury: Plan 1. Anasarca: Patient has 2+ protein and 2+ blood on urine analysis. We will order serological GN work-up including complements, JOHN, ANCA, hep serologies. We will also check 24-hour urine protein. -Placed on IV albumin as well as IV Lasix -Need to be on 2 g sodium restriction and 1500 mL fluid restriction -Once serologies available, may require kidney biopsy 2. Liver cirrhosis: Secondary to PEREIRA likely. Ordered hep serologies, patient reports that he was following with GI physician as outpatient. 3. Acute kidney injury: Unknown creatinine baseline, unclear if patient has CKD. Creatinine 1.4 on presentation. Await further work-up as above. No obstruction seen on CT. We will check urine electrolytes 4. Hyponatremia: Sodium 129 on presentation, likely from chronic liver disease, monitor check urine osmolality Time spent 45 minutes. patient evaluated using audiovisual cart. Consult Attestations Medical Necessity Statement: needs inpt stay Coding Level of Care Code Acute Code for Chg Fwd Diagnoses Anasarca R60.1 Acute kidney injury N17.9
[2022-05-05 19:52] VITALS: BP 143/76; PULSE 65; RESP 16; TEMP 36.4; O2SAT 94
[2022-05-05] MEDS: atorvastatin 40 mg Tablet PO (20:01)
[2022-05-05] MEDS: acetaminophen 325 mg Tablet 650 MG PO (23:35)
[2022-05-06] VITALS (7 sets, daily range): BP systolic 127–151; BP diastolic 70–76; PULSE 60–69; RESP 16–18; TEMP 36.4–36.8; O2SAT 90–93
[2022-05-06] MEDS: albumin 25 G/100 ML BAG 60 G IV ×2 (03:46→13:54)
[2022-05-06 05:50] LABS: Anion Gap 10.5 (5-19); Blood Urea Nitrogen 52 mg/dL (8-23); Calcium 7.7 mg/dL (8.5-10.5); Carbon Dioxide 26 mmol/L (22-29); Chloride 103 mmol/L (98-107); Glucose 87 mg/dL (65-115); Osmolality Calculated 293 mOsm/kg (285-295); Potassium 4.5 mmol/L (3.5-5.1); Sodium 135 mmol/L (136-145)
--- NOTE | 2022-05-06 07:53 | P.PN_ITS ---
Subjective Subjective: feels better. has dec sob. has edema. is drinking a lot of water. no n/v/c/wheeler/f/d Medications: Reviewed: Yes Medication Review Details: Current Medications Acetaminophen (Acetaminophen 325 Mg Tablet) 650 mg PO Q6H PRN PRN Reason: Mild/Mod Pain Or Temp >/= 101 Last Admin: 05/05/22 23:35 Dose: 650 mg Aspirin (Aspirin 81 Mg Ec Tablet) 81 mg PO DAILY [facility] Last Admin: 05/05/22 08:59 Dose: 81 mg Atorvastatin Calcium (Atorvastatin 40 Mg Tablet) 40 mg PO BEDTIME [facility] Last Admin: 05/05/22 20:01 Dose: 40 mg Furosemide (Furosemide 10 Mg/Ml Sdv 4ml) 40 mg IVP Q12H [facility] Last Admin: 05/05/22 19:58 Dose: 40 mg Heparin Sodium (Porcine) (Heparin 5,000 Unit/Ml Inj 1 Ml) 5,000 unit SUBCUT Q12H [facility] Last Admin: 05/05/22 21:13 Dose: 5,000 unit Albumin Human (Albumin) 25 g in 100 mls @ 60 mls/hr IV Q8H [facility] Last Admin: 05/06/22 03:46 Dose: 60 mls/hr Ondansetron HCl (Ondansetron 2 Mg/Ml Sdv 2 Ml) 4 mg IVP Q6H PRN PRN Reason: vomiting, or N/V if npo Vitals/I&O/Wt Last Vital Signs Temp 97.6 F 05/06/22 07:31 Pulse 60 05/06/22 07:31 Resp 16 05/06/22 07:31 BP 151/76 05/06/22 07:31 Pulse Ox 93 05/06/22 07:31 O2 Del Method 05/06/22 07:31 05/05/22 05/06/22 05/06/22 22:59 06:59 14:59 Intake Total 640 / 1080 240 / 1320 Output Total 0 / 550 Balance 640 / 530 240 / 770 Weight last 48 hrs Weight 81.647 kg Physical Exam Narrative: comfortable in bed, NARD vss heent- nc/at, eomi, anicteric neck supple lungs dull bases heart reg abd soft, nt, nd, + bs ext b/l edema 1+ legs skin + rash on ankles/ calves neuro- a,a, o x 3 Data 05/05/22 04:35 05/06/22 04:48 A&P Assessment and plan (1) Anasarca: (2) Acute kidney injury: Plan 72 yr old man w/ cr 1.3 and nephritic / nephrotic syndrome -serologies sent -pt needs a renal biopsy- stop all anti plateklet agents -please speak w/ another hospital where he can get a biopsy -can dec lasix dose in half -follow up serological GN work-up including complements, JOHN, ANCA, hep serologies. We will also check 24-hour urine protein. -has hyperlipidemia and hypoalbuminemia 2. Hyponatremia: Sodium 129 on presentation- improved to 136 w/ lasix free water restrict 3. cr 1.3 likely from glomerular process seen and examined w/ RN- telehealth visit time spent > 30 minutes Attestations Medical Necessity Statement*: nephritic/ nephrotoc syndrome Time Spent in Patient Care: 16 - 35 minutes (>than 50% of time spent in counselling and/or direct pt care on unit) . Coding Level of Care Code Acute Code for [facility] Diagnoses Anasarca R60.1 Acute kidney injury N17.9
[2022-05-06 09:33] LABS: Alanine Aminotransferase 24 U/L (0-41); Albumin Level 2.2 g/dL (3.5-5.2); Alkaline Phosphatase 176 U/L (40-130); Aspartate Amino Transferase 30 U/L (0-40); Globulin 1.4 g/dL (1.3-4.6); Total Bilirubin 0.4 mg/dL (0.15-1.2); Total Protein 3.6 g/dL (6.6-8.7)
--- NOTE | 2022-05-06 09:59 | PC.CHAP ---
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 [] Patient/Family/Request visit [] Outpatient visit [] Follow-up visit [] Physician referral [] Code/Alert [] Routine visit [] Staff referral [] Actively dying [] Patient sleeping [] Family support [] [] Out of room [] Palliative care [] [x] Receiving care in room [] Pre-surgical visit [] Trauma [] Long length of stay [] ICU visit [] Other: Relational/Emotional Strength [] Patient feels connected with others/family/visitors/staff [] Distress [] Loneliness/isolation [] Abandonment Spirituality of Patient [] Person of [place] [] Attends Roman Catholic of their [place] [] Believes in Prayer [] Reads Bible or Gnosticist materials [] There are Spiritual issues to be addressed Risk Control Officer Interventions [] Prayer [] Active listening [] Non-anxious presence [] Spiritual/emotional support [] Crisis/trauma care [] Spiritual counseling [] Bereavement support [] Provided bereavement packet [] Provided Bible/devotional materials [] Provided toy/stuffed animal, coloring book to patient or family member [] Provided Communion [] Anointing/[place] [] Salvation [] Completed spiritual assessment [] Other: Impact on Illness or Injury [] Angry [] Fearful [] Anxious [] Often cries [] Exhaustion [] Unable to work [] Unable to attend congregation [] Unable to walk/stand [] Unable to read [] Unable to drive [] Unable to eat/drink [] Unable to sleep [] Unable to be with family [] Patient intubated [] Other: Summary Time spent with patient
[2022-05-06] MEDS: heparin 5,000 unit/mL INJ 1 mL 5000 UNIT SUBCUT ×2 (10:17→22:19)
[2022-05-06] MEDS: FUROsemide 10 mg/mL SDV 2mL 20 MG IVP ×2 (10:17→20:02)
--- NOTE | 2022-05-06 14:25 | P.PN_ITS ---
Subjective Subjective: Patient feels that his edema is improving over the lower extremities. Currently on Lasix 20 mg IV every 12 hours. Urine output not accurately charted at this time. Medications: Reviewed: Yes Medication Review Details: Current Medications Acetaminophen (Acetaminophen 325 Mg Tablet) 650 mg PO Q6H PRN PRN Reason: Mild/Mod Pain Or Temp >/= 101 Last Admin: 05/05/22 23:35 Dose: 650 mg Aspirin (Aspirin 81 Mg Ec Tablet) 81 mg PO DAILY [facility] Last Admin: 05/05/22 08:59 Dose: 81 mg Atorvastatin Calcium (Atorvastatin 40 Mg Tablet) 40 mg PO BEDTIME [facility] Last Admin: 05/05/22 20:01 Dose: 40 mg Furosemide (Furosemide 10 Mg/Ml Sdv 4ml) 40 mg IVP Q12H [facility] Last Admin: 05/05/22 19:58 Dose: 40 mg Heparin Sodium (Porcine) (Heparin 5,000 Unit/Ml Inj 1 Ml) 5,000 unit SUBCUT Q12H [facility] Last Admin: 05/05/22 21:13 Dose: 5,000 unit Albumin Human (Albumin) 25 g in 100 mls @ 60 mls/hr IV Q8H [facility] Last Admin: 05/06/22 03:46 Dose: 60 mls/hr Ondansetron HCl (Ondansetron 2 Mg/Ml Sdv 2 Ml) 4 mg IVP Q6H PRN PRN Reason: vomiting, or N/V if npo Vitals/I&O/Wt Last Vital Signs Temp 98.0 F 05/06/22 11:26 Pulse 67 05/06/22 11:26 Resp 18 05/06/22 11:26 BP 127/70 05/06/22 11:26 Pulse Ox 92 05/06/22 11:26 O2 Del Method 05/06/22 11:26 05/05/22 05/06/22 05/06/22 22:59 06:59 14:59 Intake Total 640 / 1080 340 / 1420 600 / 600 Output Total 0 / 550 Balance 640 / 530 340 / 870 600 / 600 Weight last 48 hrs Weight 81.647 kg Physical Exam Narrative: General: No acute distress, AO x3 HEENT: PERRLA, pupils bilaterally equal and reactive, pallors not present Chest: Normal vesicular breath sounds, no added sounds, equal good air entry bilaterally CVS: S1-S2 regular, no murmurs, no tachycardia, no gallops, no rubs Abdomen: Soft, nontender, no organomegaly, bowel sounds present Neuro: No focal deficits, no facial deformity, AO x3, power 5/5 in all limbs Extremities: Anasarca present, pitting bilateral lower extremity edema Data 05/05/22 04:35 05/06/22 04:48 A&P Assessment and plan (1) Anasarca: Causes under evaluation. Nephrotic syndrome is suspected given 3+ proteinuria, hypoalbuminemia, granular casts, hematuria. Nephrology notes reviewed. Recommend renal biopsy and transfer to a center where this can be obtained. We will call to attempt transfer to [place]. Alternate differentials include hepatorenal syndrome given evidence of liver cirrhosis on CT, however this appears to be less likely as patient's INR is normal, as is his LFTs and ammonia Continue 20 mg of Lasix IV every 12 hours with monitoring renal function closely. cr stable at 1.3 echocardiogram with LVEF 65%, no RWMA, gr [address] scan reviewed - overall signs of anasarca, No obstruction noted on renal im aging. (2) Hyperkalemia: Resolved. With JAIR, follow-up potassium, at risk of electrolyte abnormalities especially with IV diuresis, with risk of arrhythmia. Add cardiac monitoring. Requesting repeat BMP tomorrow morning (3) Acute kidney injury: Continue diuresis. So far renal function allowing, no worsening creatinine, but without improvement needed. Creatinine reviewed at 1.4. BUN slightly better at 48. Reassessment chemistry panel for renal function requested. Monitor electrolytes, acid-base balance. Anion gap noted 9.5, bicarb 25. Magnesium 3. (4) Transaminitis: This could be secondary to fluid overload. Monitor with diuresis Check hepatitis panel (5) Hypoalbuminemia: Appreciate nephrology consultation. currently on albumin 25 g iv q8h (6) Cirrhosis: INR is normal. Platelet count is normal Ammonia level reviewed normal. Noted alkaline phosphatase elevation, today slightly better down to 244. May be stasis secondary to fluid overload. Follow-up echocardiogram. Continue diuresis. Follow-up liver function. Plan On CT additionally noted for thickening of ascending and transverse colon less prominently distended and sigmoid colon with haziness of adjacent fat compatible with reactive changes to ascites or mild colitis. He does not endorse any GI symptoms at this time. this is liely related to bowel edema as part of anasarca, h/o TIA/CVA: last MRI 04/08 with Chronic lacunar infarcts in the RIGHT cerebellum.Small chronic lacunar infarct in the RIGHT frontal white matter with small amount of hemosiderin. Patient is on baby ASA, last dose yesterday, On hold now for possible biopsy Full code currently Heparin for DVT prophylaxis Attestations Medical Necessity Statement*: plans for renal biopsy, iv diuresis Coding Level of Care Code Acute Code for g Fwd Diagnoses Anasarca R60.1 Hyperkalemia E87.5 Acute kidney injury N17.9 Transaminitis R74.01 Hypoalbuminemia E88.09 Cirrhosis K74.60
[2022-05-06 16:14] LABS: HIV 1 & 2 Antibody Non-Reactive (Non-Reactiv); HIV 1 & 2 Antigen Non-Reactive (Non-Reactiv)
[2022-05-06 17:19] LABS: Sodium, Urine Result 10 mmol/L; Total Volume, Urine 1200 mL
[2022-05-06 17:26] LABS: Total Volume, Urine 1200 mL
[2022-05-06 18:06] LABS: Urine Total Protein 778.1 mg/dL (0-150)
[2022-05-06] MEDS: albumin 25 G/100 ML VIAL IV (20:02)
[2022-05-06] MEDS: atorvastatin 40 mg Tablet PO (20:34)
[2022-05-06] MEDS: acetaminophen 325 mg Tablet 650 MG PO (22:17)
[2022-05-07] VITALS: BP 129/69; PULSE 67; RESP 17; TEMP 37.4; O2SAT 90
[2022-05-07 04:00] VITALS: BP 130/72; PULSE 63; RESP 16; TEMP 36.8; O2SAT 92
[2022-05-07] MEDS: albumin 25 G/100 ML VIAL IV (04:08)
[2022-05-07 04:36] LABS: Alanine Aminotransferase 23 U/L (0-41); Albumin Level 2.4 g/dL (3.5-5.2); Alkaline Phosphatase 158 U/L (40-130); Anion Gap 11.6 (5-19); Aspartate Amino Transferase 28 U/L (0-40); Blood Urea Nitrogen 53 mg/dL (8-23); Calcium 7.9 mg/dL (8.5-10.5); Carbon Dioxide 25 mmol/L (22-29); Chloride 105 mmol/L (98-107); Globulin 1.7 g/dL (1.3-4.6); Glucose 88 mg/dL (65-115); Osmolality Calculated 298 mOsm/kg (285-295); Potassium 4.6 mmol/L (3.5-5.1); Sodium 137 mmol/L (136-145); Total Bilirubin 0.6 mg/dL (0.15-1.2); Total Protein 4.1 g/dL (6.6-8.7)
[2022-05-07 07:46] VITALS: BP 143/67; PULSE 70; RESP 15; TEMP 36.9; O2SAT 90
[2022-05-07 08:49] LABS: PROTEIN, TOTAL 3.9 g/dL (6.1-8.1)
[2022-05-07] MEDS: heparin 5,000 unit/mL INJ 1 mL 5000 UNIT SUBCUT (09:34)
[2022-05-07] MEDS: FUROsemide 10 mg/mL SDV 2mL 20 MG IVP (09:35)
[2022-05-07] MEDS: polyethylene glycol 3350 Pkt 17 gm PO (09:50)
--- NOTE | 2022-05-07 10:55 | P.PN_ITS ---
Subjective Subjective: feels better Medications: Reviewed: Yes Vitals/I&O/Wt Last Vital Signs Temp 98.4 F 05/07/22 07:46 Pulse 70 05/07/22 07:46 Resp 15 05/07/22 07:46 BP 143/67 05/07/22 07:46 Pulse Ox 90 05/07/22 07:46 O2 Del Method 05/06/22 16:00 05/06/22 05/07/22 05/07/22 22:59 06:59 14:59 Intake Total 680 / 1280 460 / 460 Output Total 300 / 300 Balance 680 / 1280 -300 / 980 460 / 460 Physical Exam Narrative: Patient is awake and alert, no acute distress HEENT, PERRLA Lungs clear to auscultation per report Abdomen distended with ascites per report 2+ lower extremity edema per report Data 05/05/22 04:35 05/07/22 03:26 A&P Assessment and plan (1) Anasarca: 72 yr old man w/ cr 1.3 and nephritic / nephrotic syndrome -Needs kidney biopsy , [employer]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 We will also check 24-hour urine protein. -has hyperlipidemia and hypoalbuminemia 2.? Hyponatremia: Sodium 129 on presentation- improved to 132 w/ lasix free water restrict 3. cr 1.3 likely from glomerular process seen and examined w/ RN- telehealth visit time spent > 30 minutes (2) Acute kidney injury: Attestations Medical Necessity Statement*: plans for renal biopsy, iv diuresis Coding Level of Care Code Acute Code for Chg Fwd Diagnoses Anasarca R60.1 Acute kidney injury N17.9
--- NOTE | 2022-05-07 11:00 | PM.DCS ---
Discharge Providers Date of Admission: 05/04/22 21:45 Date of Discharge: May 07, 2022 Attending Provider at Admission: Hever Murphy MD Attending Provider at Discharge: Liv Tovar MD Primary Care Provider: Gregory Wilson MD Diagnoses at Discharge Discharge Diagnosis (1) Anasarca: Status: Acute (2) Acute kidney injury: Status: Acute (3) Nephrotic syndrome: Status: Acute Reason for Visit Reason for Visit: leg and feet swelling Brief History: Zurdo Mora is a 72 year old male who presents to the hospital with history of swelling in his feet and legs, progressively increasing over the last month and now with swelling of his abdomen.? He reports no fevers.? He has had no nausea, vomiting, or diarrhea.? No history of this ever happening in the past.? No chest discomfort.? No history of heart failure.? His only medical problem has been a history of fatty liver, and some asymptomatic stroke that was picked up on imaging several years ago.? He reports no significant medication use other than aspirin daily.? reports he had some confusion in the past, but none currently.? He has had some shortness of breath as well Hospital Course Hospital Course (1) Anasarca: Cause under evaluation. Nephrotic syndrome is suspected given 3+ proteinuria, hypoalbuminemia, granular casts, HLD, hematuria, 9g 24 hr urine protein..? Nephrology notes reviewed.? Recommend renal biopsy. We have been able to arrange expedited outpatient appointment this at [address] Cam Olvera at the [facility]. Alternate differentials include hepatorenal syndrome given evidence of liver cirrhosis on CT, however this appears to be less likely as patient's INR is normal, as are his LFTs and ammonia He received 20 mg of Lasix IV every 12 hours with monitoring renal function closely. cr stable at 1.4. This is changed from his baseline of 0.7 on 02/13/22. ?echocardiogram with LVEF 65%, no RWMA, gr 1 diastolic dysfunction. Unlikely CHF. CT scan reviewed - overall signs of anasarca, No obstruction noted on renal imaging. At discharge nephrology recommended to start Lasix 20mg po BID, losartan 25mg po daily, atorvastatin 20 mg daily. Also recommended salt restriction to less than 2g/day and fluid restrcition <1500cc/day. ASA on hold as anticipate renal biopsy soon. (2) Hyperkalemia: Resolved.? (3) Acute kidney injury: Cause under evaluation. With recent CVA/TIA, MR s/o lacunar infarcts, transmainitis and nephrotic syndrome, concern for systemic illness such as CT disorders, vasculitis, amyloidosis etc. (4) Transaminitis: Resolved. negative acute hepatitis screen (5) Hypoalbuminemia: Appreciate nephrology consultation. received albumin 25 g iv q8h (6) Cirrhosis: INR is normal.? Platelet count is normal. Has had mild thrombocytopenia as outaptient. Ammonia level reviewed normal. 7) Incidentally CT additionally noted for thickening of ascending and transverse colon less prominently distended and sigmoid colon with haziness of adjacent fat compatible with reactive changes to ascites or mild colitis.? He does not endorse any GI symptoms at this time. this is liely related to bowel edema as part of anasarca, h/o TIA/CVA: last MRI 04/08 with?Chronic lacunar infarcts in the RIGHT cerebellum.Small chronic lacunar infarct in the RIGHT frontal white matter with small amount of hemosiderin. Patient is on baby ASA, last dose yesterday, On hold now for possible biopsy Physical Exam Narrative: General: No acute distress, AO x3 HEENT: PERRLA, pupils bilaterally equal and reactive, pallors not present Chest: Normal vesicular breath sounds, no added sounds, equal good air entry bilaterally CVS: S1-S2 regular, no murmurs, no tachycardia, no gallops, no rubs Abdomen: Soft, nontender, no organomegaly, bowel sounds present Neuro: No focal deficits, no facial deformity, AO x3, power 5/5 in all limbs Extremities: B/L LE pitting edema Discharge Data Studies Completed and Pending Completed Studies During Hospitalization Category Date Time Status CT abdomen pelvis w con* [id number] Stat Cat Scan 05/04/22 18:16 Completed XR chest 1V portable [id number] Stat Exams 05/04/22 17:08 Completed CV. echo complete* [id number] Routine Ultrasound 05/05/22 06:00 Completed Pending at discharge Category Date Time Status JOHN SCREEN [JOHN Profile Rheumatology] Routine Lab 05/05/22 09:08 Received ANCA [Anti-Neutrophil Cytoplasmic AB] Routine Lab 05/05/22 09:08 Received Albumin Level AM LABS Lab 05/08/22 04:00 Ordered Basic Metabolic Panel AM LABS Lab 05/08/22 04:00 Ordered Hepatitis C Genotype RNA Routine Lab 05/05/22 04:35 Received Immunofixation Serum Stat Lab 05/06/22 08:50 Received KAPPA/LAMBDA LIGHT FREE SERUM Routine Lab 05/06/22 08:50 Received [place] Free Light Chains Urine Stat Lab 05/06/22 15:30 Received LFT [Liver Panel] AM LABS Lab 05/08/22 04:00 Ordered Serum Protien Electrophoresis [Total Protein Lab 05/06/22 08:50 Results Electrophoresis] Stat Radiology Impressions Chest X-Ray 05/04/22 17:08 IMPRESSION: Mild bibasilar opacity is present, consistent with atelectasis or pneumonia. Abdomen/Pelvis CT 05/04/22 18:16 IMPRESSION: 1. There is diffuse small bowel wall thickening, consistent with infectious, ischemic, or inflammatory enteritis. This is especially prominent involving the jejunum in the left upper quadrant. 2. There is wall thickening of the ascending and transverse colon and less prominently the descending and sigmoid colon with haziness of the adjacent fat compatible with reactive changes to ascites or mild colitis. 3. There is a moderate volume of ascites, pleural effusions and anasarca type changes. Mild cirrhotic liver morphology. 4. Nonspecific bibasilar consolidation is present, consistent with atelectasis, edema, or pneumonia. COMMENTS: Consistent with the [employer]'s Incidental Findings Committee white paper (J Am Ranjit Radiol 2018): Any incidental renal lesion less than 1 cm or classified as too small to characterize, or any incidental cystic renal lesion characterized as simple-appearing, is likely benign. No follow-up imaging is recommended for these lesions per consensus recommendations based on imaging criteria. Laboratory Results WBC 5.0 10^3/uL (4.0-10.0) 05/05/22 04:35 RBC 4.25 10^6/uL (4.1-5.3) 05/05/22 04:35 Hgb 13.8 g/dL (11.7-16.6) 05/05/22 04:35 Hct 40.7 % (42.0-52.0) L 05/05/22 04:35 MCV 95.8 fl (80-94) H 05/05/22 04:35 MCH 32.5 pg (28.0-34.0) 05/05/22 04:35 MCHC 33.9 g/dL (30.0-36.0) 05/05/22 04:35 RDW 13.0 % (12.1-15.1) 05/05/22 04:35 Plt Count 198 10^3/cmm (130-400) 05/05/22 04:35 MPV 9.8 fL (7.4-10.4) 05/05/22 04:35 Neut % (Auto) 66.8 % 05/05/22 04:35 Lymph % (Auto) 19.5 % 05/05/22 04:35 [place] % (Auto) 8.5 % 05/05/22 04:35 Eos % (Auto) 4.2 % 05/05/22 04:35 Baso % (Auto) 0.8 % 05/05/22 04:35 Neut # (Auto) 3.36 10^3/uL (1.8-7.7) 05/05/22 04:35 Lymph # (Auto) 1.0 10^3/uL (0.8-4.8) 05/05/22 04:35 [place] # (Auto) 0.4 10^3/uL (0.2-0.9) 05/05/22 04:35 Eos # (Auto) 0.2 10^3/uL (0.0-0.8) 05/05/22 04:35 Baso # (Auto) 0.0 10^3/uL (0.0-0.1) 05/05/22 04:35 Nucleated RBC % (auto) 0 % 05/05/22 04:35 Nucleated RBCs # 0.0 /100WBC 05/05/22 04:35 PT 13.60 SECONDS (12.1-14.9) 05/04/22 17:20 INR 1.01 (0.8-1.2) 05/04/22 17:20 Sodium 137 mmol/L (136-145) 05/07/22 03:26 Potassium 4.6 mmol/L (3.5-5.1) 05/07/22 03:26 Chloride 105 mmol/L (98-107) 05/07/22 03:26 Carbon Dioxide 25 mmol/L (22-29) 05/07/22 03:26 Anion Gap 11.6 (5-19) 05/07/22 03:26 BUN 53 mg/dL (8-23) H 05/07/22 03:26 Creatinine 1.4 mg/dL (0.7-1.2) H 05/07/22 03:26 GFR Calculation Not Reportable 05/07/22 03:26 Glucose 88 mg/dL (65-115) 05/07/22 03:26 Estimat Average Glucose 103 05/04/22 17:20 Estimat Average Glucose Cancelled 05/04/22 17:20 Hemoglobin A1c 5.2 % (4.0-6.0) 05/04/22 17:20 Hemoglobin A1c Cancelled 05/04/22 17:20 Calculated Osmolality 298 mOsm/kg (285-295) H 05/07/22 03:26 Lactate 1.3 mmol/L (0.5-2.2) 05/04/22 17:20 Calcium 7.9 mg/dL (8.5-10.5) L 05/07/22 03:26 Magnesium 3.0 mg/dL (1.7-2.3) H 05/05/22 04:35 Total Bilirubin 0.6 mg/dL (0.15-1.2) 05/07/22 03:26 Direct Bilirubin 0.20 mg/dL (0.00-0.30) 05/07/22 03:26 AST 28 U/L (0-40) 05/07/22 03:26 ALT 23 U/L (0-41) 05/07/22 03:26 Alkaline Phosphatase 158 U/L (40-130) H 05/07/22 03:26 Ammonia 17 umol/L (16-60) 05/05/22 04:38 Creatine Kinase 216 U/L (39-308) 05/05/22 04:35 Troponin T Baseline 46 ng/L (0-15) H 05/04/22 17:20 Troponin T 120 Minute 42.92 ng/L (0-15) H 05/04/22 19:37 Delta Troponin T -3.08 ABS# (0-10) L 05/04/22 19:37 Troponin T Hi Sens 6Hr 45.01 ng/L (0-15) H 05/04/22 23:10 Troponin T Hi Sens 6Hr Delta -0.99 ng/L (0-12) L 05/04/22 23:10 NT-Pro-B Natriuret Pep 764 pg/mL (0-125) H 05/04/22 17:20 Total Protein 4.1 g/dL (6.6-8.7) L 05/07/22 03:26 Albumin 2.4 g/dL (3.5-5.2) L 05/07/22 03:26 Globulin 1.7 g/dL (1.3-4.6) 05/07/22 03:26 Triglycerides 144 mg/dL (0-150) 05/05/22 04:35 Cholesterol 260 mg/dL (0-200) H 05/05/22 04:35 LDL Cholesterol, Calc 190 mg/dL (50-129) H 05/05/22 04:35 HDL Cholesterol 41 mg/dL (60-100) L 05/05/22 04:35 LDL/HDL Ratio 4.63 RATIO (0.00-3.22) H 05/05/22 04:35 Cholesterol/HDL Ratio 6.34 mg/dL (1.0-5.00) H 05/05/22 04:35 TSH 2.34 uIU/mL (0.27-4.20) 05/04/22 17:20 Urine Color Yellow (Yellow) 05/04/22 18:00 Urine Appearance Sl hazy (CLEAR) A 05/04/22 18:00 Urine pH 5 (5-7) 05/04/22 18:00 Ur Specific [place] 1.025 (1.005-1.030) 05/04/22 18:00 Urine Protein 3+ (Negative) H 05/04/22 18:00 Urine Glucose (UA) Norm (Normal) 05/04/22 18:00 Urine Ketones Negative (Negative) 05/04/22 18:00 Urine Blood 2+ (Negative) H 05/04/22 18:00 Urine Nitrate Negative (Negative) 05/04/22 18:00 Urine Bilirubin Neg (Negative) 05/04/22 18:00 Urine Urobilinogen Norm mg/dL (Negative) 05/04/22 18:00 Ur Leukocyte Esterase Negative (Negative) 05/04/22 18:00 Urine RBC 0-4 /hpf (0-2) H 05/04/22 18:00 Urine WBC None /hpf (0-5) 05/04/22 18:00 Ur Squamous Epith Cells None /hpf (0-5) 05/04/22 18:00 Amorphous Sediment Trace /hpf 05/04/22 18:00 Urine Bacteria Trace /hpf (NONE) 05/04/22 18:00 Fine Granular Casts 10-15 /lpf H 05/04/22 18:00 U Random Total Protein 510 mg/dL 05/04/22 20:55 Urine Total Volume 1200 mL 05/06/22 15:30 Ur 24 Hour Volume 1200 mL 05/06/22 15:30 Urine Creatinine 104 mg/dL (39-259) 05/04/22 20:55 Ur Total Protein 24 Hr 9337.2 mg/24hr (0-150) H 05/06/22 15:30 Ur Sodium 24 Hour 12 mmol/24H (40-222) L 05/06/22 15:30 Urine Total Protein 778.1 mg/dL (0-150) H 05/06/22 15:30 Complement C3 151 mg/dL (90-180) 05/05/22 04:35 Complement C4 48 mg/dL (10-40) H 05/05/22 04:35 Hepatitis A IgM Ab Non-reactive (Nonreactive) 05/04/22 17:20 Hep Bs Antigen Non-reactive (Nonreactive) 05/05/22 04:35 Hep Bs Antibody 98.1 (11.5-1000) 05/05/22 04:35 Hep B Core IgM Ab Non-reactive (Nonreactive) 05/04/22 17:20 Hepatitis C Antibody Non-reactive (Nonreactive) 05/04/22 17:20 HIV 1&2 Ab & HIV 1 Ag Non-reactive (Non-Reactiv) 05/06/22 04:48 HIV 1&2 Antibody Non-reactive (Non-Reactiv) 05/06/22 04:48 Vitals Last Vital Signs Temp 98.4 F 05/07/22 07:46 Pulse 70 05/07/22 07:46 Resp 15 05/07/22 07:46 BP 143/67 05/07/22 07:46 Pulse Ox 90 05/07/22 07:46 O2 Del Method 05/06/22 16:00 Discharge Plan Discharge Patient Disposition: Home Condition: Stable Prescriptions: New losartan 25 mg tablet 25 mg PO DAILY 30 Days Qty: 30 0RF atorvastatin 40 mg Tablet 20 mg PO DAILY 30 Days Qty: 30 0RF furosemide [Lasix] 20 mg tablet 20 mg PO BID 30 Days Qty: 60 0RF Held Aspir-81 81 mg Tablet,Delayed Release (Dr/Ec) 81 mg PO QAM Hold Instructions: Resume on 05/21/22. hold until renal biopsy is completed Discharge Orders: Discharge Order (Routine); Ordered 05/07/22 Ordered By: Liv Tovar Other Ambulatory Orders: DME: Oxygen (Order) Location: None Selected Ordered By: Liv Tovar Referrals: Gregory Wilson MD [Primary Care Provider] - 05/14/22 10:45 am Cam Olvera [Other] - 05/09/22 10:00 am (nephrology outpatient appointment- discussed with Dr. Olvera over the phone. ) Discharge Diet: Low Salt Discharge Activity: Increase activity as tolerated Patient Instructions: Opioid Safety, Pain Management Activity Restrictions/Additional Instructions: Started on losartan 25mg po daily. Check BP twice a day. Stop losartan if BP < 90 sytsolic Fluid restirction < 1500 cc/day Salt restriction less than 2 g per day Discharge Attestations Time Spent in Discharge Care*: greater than 30 min Quality Metrics Clinical Quality Measures [ No reported AMI, CVA or VTE this stay] Coding Level of Care Code Acute Code for Chg Fwd Total time (in minutes) for Discharge: 60 Other Coding Information Prolonged care (total time indicated above or notated here) (disscussion with family and patient regarding discharge insstrcutions, medication counselling, reviewing test results at discharge, discussing with PCP and refractory bricklayer at higher center ) Diagnoses Anasarca R60.1 Acute kidney injury N17.9 Nephrotic syndrome N04.9
[2022-05-07 11:05] LABS: CENTROMERE B ANTIBODY <1.0 NEG AI (<1.0 NEG); JO-1 ANTIBODY <1.0 NEG AI (<1.0 NEG); RNP ANTIBODY <1.0 NEG AI (<1.0 NEG); SCL-70 ANTIBODY <1.0 NEG AI (<1.0 NEG); SJOGREN'S ANTIBODY (SS-A) <1.0 NEG AI (<1.0 NEG); SM ANTIBODY <1.0 NEG AI (<1.0 NEG); SS-B <1.0 NEG AI (<1.0 NEG)
[2022-05-07 11:25] VITALS: O2SAT 87; O2SAT 89; O2SAT 91
[2022-05-07 11:35] LABS: KAPPA LIGHT CHAIN, FREE, SERUM 43.5 mg/L (3.3-19.4); KAPPA/LAMBDA LIGHT CHAINS FREE 2.29 (0.26-1.65)
[2022-05-07 11:50] LABS: COMPLEMENT COMPONENT C3C 151 mg/dL (82-185); COMPLEMENT COMPONENT C4C 49 mg/dL (15-53)
[2022-05-07 11:59] VITALS: BP 146/75; PULSE 73; RESP 17; TEMP 36.8; O2SAT 90
[2022-05-07 13:49] LABS: THYROID PEROXIDASE ANTIBODIES <1 IU/mL (<9)
--- NOTE | 2022-05-07 14:05 | PC.NURSE ---
HOME delivered patients oxygen. Patient ended up refusing Home O2. This nurse advised patient to check his oxygen frequently and especially if he felt short of breath. If his sats are low and maintaining a reading lower than 90% patient advised to come back to the ER.
[2022-05-07 14:07] VITALS: BP 146/75; PULSE 73; RESP 17; TEMP 36.8; O2SAT 90
[2022-05-07 15:49] LABS: ANA SCREEN, IFA NEGATIVE (NEGATIVE)
--- NOTE | 2022-05-07 17:00 | PC.SOCIAL ---
IMM UPDATED IMM dated and initialed and copy given to patient and placed in chart
[2022-05-08 12:45] LABS: ALBUMIN 1.7 g/dL (3.8-4.8); ALPHA 1 GLOBULIN 0.2 g/dL (0.2-0.3); ALPHA 2 GLOBULIN 1.1 g/dL (0.5-0.9); BETA 1 GLOBULIN 0.2 g/dL (0.4-0.6); BETA 2 GLOBULIN 0.4 g/dL (0.2-0.5); GAMMA GLOBULIN 0.4 g/dL (0.8-1.7)
[2022-05-08 14:23] LABS: COMPLEMENT, TOTAL (CH50) 55 U/mL (31-60)
[2022-05-09 13:11] LABS: Kappa Free Light Chains Urine 25.16 mg/L (<=32.90)
[2022-05-09 13:20] LABS: DNA AB (DS) CRITHIDIA,IFA NEGATIVE (NEGATIVE)
[2022-05-09 15:05] LABS: ANCA Screen NEGATIVE (NEGATIVE)
[2022-05-15 23:11] LABS: Hepatitis C Genotype RNA NOT DETECTED
== END 2022-05-07 13:45 | disposition home or self-care (01) | DRG 699 ==
LOC: ER 20:48 → MEDSURG 05-05 07:59
PROVIDERS: Hospitalist; Internal Medicine; Internal Medicine Nephrology; Admitting Provider Internal Medicine; Emergency Provider Emergency Medicine; PCP Family Medicine; Visit Provider Student in an Organized Health Care Education/Training Program
DX: N04.9 Nephrotic syndrome with unspecified morphologic changes (principal); E87.1 Hypo-osmolality and hyponatremia; E87.5 Hyperkalemia; N17.9 Acute kidney failure, unspecified; K75.81 Nonalcoholic steatohepatitis (NASH); K74.60 Unspecified cirrhosis of liver; D69.6 Thrombocytopenia, unspecified; Z86.73 Personal history of transient ischemic attack (TIA), and cerebral infarction without residual deficits; Z87.442 Personal history of urinary calculi
CPT/HCPCS: 12345; 36415; 51798; 71045; 74177; 80048; 80053; 80061; 80074; 80076; 81001; 82140; 82550; 82570; 83036; 83605; 83735; 83880; 83883; 84155; 84156; 84165; 84300; 84443; 84484; 85025; 85610; 86036; 86160; 86162; 86235; 86255; 86334; 86335; 86376; 86706; 87340; 87806; 87902; 93005; 93306; 94760; 96372; 99285; J1644; J1940; P9046; P9047; Q9967

== ENCOUNTER 2022-06-07 13:58 | Emergency (ER) | payer MEDICARE, SELFPAY ==
[2022-06-07 14:20] VITALS: BP 104/74; PULSE 95; RESP 18; O2SAT 98; BMI 27.1
[2022-06-07 15:32] LABS: Eosinophils % 0.1 %; Hematocrit 42.9 % (42.0-52.0); Hemoglobin 14.7 g/dL (11.7-16.6); Lymphocytes # 0.3 10^3/uL (0.8-4.8); Lymphocytes % 2.1 %; Mean Corpuscular HGB Conc 34.3 g/dL (30.0-36.0); Mean Corpuscular Hemoglobin 32.7 pg (28.0-34.0); Mean Corpuscular Volume 95.5 fl (80-94); Mean Platelet Volume 10.1 fL (7.4-10.4); Monocytes # 0.4 10^3/uL (0.2-0.9); Neutrophils # 11.47 10^3/uL (1.8-7.7); Neutrophils % 94.4 %; Nucleated Red Blood Cells % 0 %; Platelet Count 131 10^3/cmm (130-400); Red Blood Count 4.49 10^6/uL (4.1-5.3); Red Cell Distribution Width 14.2 % (12.1-15.1); White Blood Count 12.2 10^3/uL (4.0-10.0)
--- NOTE | 2022-06-07 15:50 | ED_ITS ---
HPI - Extremity Problem General: Chief complaint: Extremity Problem,Nontraumatic Stated complaint: Swelling in feet and legs, Weakness Time Seen by Provider: 06/07/22 15:50 Source: patient Mode of arrival: ambulatory History of Present Illness: 70-year-old male with a history of minimal-change disease. He was at [facility] recently was discharged 3 weeks ago. He was advised if he had increased swelling in his legs return to the emergency room. He has noticed for the last few days increased swelling has had about a 3 to 4 pound we ight gain. He denies any chest pain or shortness of breath no fever sweats or chills. He is continued with his usual urine output. He currently takes Lasix 40 mg twice daily. MD Complaint: extremity swelling Onset (ago): day(s) Location: left, right and lower extremity Relieving factors: nothing Exacerbating factors: nothing Associated symptoms: Deny chest pain, fever(s) or rash Review of Systems Const: Denies: fever(s), chills, body aches, change in appetite, fatigue or malaise ENMT: Denies: throat pain, ear or mastoid pain, nasal discharge or nasal congestion Card: Reports: edema and swelling of feet/ankles; Denies: chest pain, dyspnea on exertion or orthopnea Resp: Denies: dyspnea, productive cough or non-productive cough GI: Denies: abdominal pain, nausea, vomiting, hematemesis, coffee ground emesis, diarrhea, constipation, bloating, hematochezia or melena : Denies: flank pain, dysuria, urinary frequency or urinary urgency Skin/Breast: Denies: rash or pruritus PFSH ED PFSH: Medical History History of CVA (cerebrovascular accident) Lacunar infarcts on MRI S/P extracorporeal shock wave therapy Ureteral calculus Surgical History Hx of shoulder surgery Family History Father Stroke Mother CAD (coronary artery disease) Social History Smoking and tobacco status: never smoked Alcohol intake: never Marital status: Current occupational status: retired Physical Exam Const: GENERAL APPEARANCE: cooperative and comfortable ORIENTATION/CONSCIOUSNESS: Yes awake, Yes oriented to person, Yes oriented to place and Yes oriented to time HENMT: COMMON NORMALS: normocephalic, atraumatic and hearing grossly normal bilaterally HEAD & SCALP: normocephalic and atraumatic Resp: COMMON NORMALS: normal respiratory effort, No retractions, No use of accessory muscles and clear to auscultation bilaterally AUSCULTATION: clear to auscultation bilaterally Cardio: COMMON NORMALS: regular rate, regular rhythm and No murmurs present (Cardio) RATE: regular rate RHYTHM: regular rhythm GI: COMMON NORMALS: Soft to palpation and No hepatosplenomegaly present AUSCULTATION: Yes normoactive bowel sounds PALPATION: Yes Soft to palpation, No Tenderness to palpation present (GI), No Guarding due to palpation present (GI) and Yes No hepatosplenomegaly present Extremity: COMMON NORMALS: normal to inspection, capillary refill normal and no calf tenderness GENERAL: Yes edema (2+ edema lower extremities bilaterally) Neuro: SENSORIUM/ORIENTATION: Yes oriented to person, Yes oriented to place and Yes oriented to time Skin: COMMON NORMALS: no rashes or lesions noted GENERAL SKIN EXAM: no rashes or lesions noted Course Vital Signs: Vital signs: Vital Signs Pulse Rate 78 06/07/22 18:20 Respiratory Rate 18 06/07/22 14:20 Blood Pressure 134/88 06/07/22 18:20 Pulse Oximetry 92 06/07/22 18:20 Oxygen Delivery Me thod 06/07/22 18:20 MDM - Extremity (Nontraumatic) Medical Decision Making Labs and imaging reviewed. He was given Lasix in the emergency room respiratory dougherty he is doing well sats are good on room air he is otherwise stable. We will increase his Lasix to 80 twice daily for the next 3 days and follow-up with primary care return if has any worsening problems. Given his minimal-change disease his potassium is 4.6 I did not prescribe any extra potassium is some concern he may end up hyperkalemic. Medical Records I reviewed the patient's medical records. Lab Data I reviewed the patient's lab results. 06/07/22 15:15 06/07/22 15:15 Radiology Impressions Chest X-Ray 06/07/22 15:52 IMPRESSION: Mild bibasilar opacity is present, greater on the left consistent with atelectasis or pneumonia. Probable small left pleural effusion. Improvement noted compared with the last study Laboratory Results WBC 12.2 10^3/uL (4.0-10.0) H 06/07/22 15:15 RBC 4.49 10^6/uL (4.1-5.3) 06/07/22 15:15 Hgb 14.7 g/dL (11.7-16.6) 06/07/22 15:15 Hct 42.9 % (42.0-52.0) 06/07/22 15:15 MCV 95.5 fl (80-94) H 06/07/22 15:15 MCH 32.7 pg (28.0-34.0) 06/07/22 15:15 MCHC 34.3 g/dL (30.0-36.0) 06/07/22 15:15 RDW 14.2 % (12.1-15.1) 06/07/22 15:15 Plt Count 131 10^3/cmm (130-400) 06/07/22 15:15 MPV 10.1 fL (7.4-10.4) 06/07/22 15:15 Neut % (Auto) 94.4 % 06/07/22 15:15 Lymph % (Auto) 2.1 % 06/07/22 15:15 [place] % (Auto) 3.0 % 06/07/22 15:15 Eos % (Auto) 0.1 % 06/07/22 15:15 Baso % (Auto) 0.0 % 06/07/22 15:15 Neut # (Auto) 11.47 10^3/uL (1.8-7.7) H 06/07/22 15:15 Lymph # (Auto) 0.3 10^3/uL (0.8-4.8) L 06/07/22 15:15 [place] # (Auto) 0.4 10^3/uL (0.2-0.9) 06/07/22 15:15 Eos # (Auto) 0.0 10^3/uL (0.0-0.8) 06/07/22 15:15 Baso # (Auto) 0.0 10^3/uL (0.0-0.1) 06/07/22 15:15 Nucleated RBC % (auto) 0 % 06/07/22 15:15 Nucleated RBCs # 0.0 /100WBC 06/07/22 15:15 PT 14.40 SECONDS (12.1-14.9) 06/07/22 18:13 INR 1.09 (0.8-1.2) 06/07/22 18:13 Sodium 130 mmol/L (136-145) L 06/07/22 15:15 Potassium 4.6 mmol/L (3.5-5.1) 06/07/22 15:15 Chloride 95 mmol/L (98-107) L 06/07/22 15:15 Carbon Dioxide 28 mmol/L (22-29) 06/07/22 15:15 Anion Gap 11.6 (5-19) 06/07/22 15:15 BUN 39 mg/dL (8-23) H 06/07/22 15:15 Creatinine 1.4 mg/dL (0.7-1.2) H 06/07/22 15:15 GFR Calculation Not Reportable 06/07/22 15:15 Glucose 125 mg/dL (65-115) H 06/07/22 15:15 Calculated Osmolality 281 mOsm/kg (285-295) L 06/07/22 15:15 Calcium 8.1 mg/dL (8.5-10.5) L 06/07/22 15:15 Magnesium 2.4 mg/dL (1.7-2.3) H 06/07/22 15:15 Total Bilirubin 0.4 mg/dL (0.15-1.2) 06/07/22 15:15 AST 74 U/L (0-40) H 06/07/22 15:15 ALT 177 U/L (0-41) H 06/07/22 15:15 Alkaline Phosphatase 269 U/L (40-130) H 06/07/22 15:15 Ammonia 19 umol/L (16-60) 06/07/22 18:13 Creatine Kinase 155 U/L (39-308) 06/07/22 15:15 NT-Pro-B Natriuret Pep 878 pg/mL (0-125) H 06/07/22 15:15 Total Protein 4.7 g/dL (6.6-8.7) L 06/07/22 15:15 Albumin 2.2 g/dL (3.5-5.2) L 06/07/22 15:15 Globulin 2.5 g/dL (1.3-4.6) 06/07/22 15:15 Discharge Plan Discharge Patient Disposition: Home Clinical Impression: Nephrotic syndrome, Cirrhosis Condition: Stable Prescriptions: No Action furosemide 40 mg tablet 40 mg PO BID atorvastatin 40 mg tablet 20 mg PO DAILY nystatin 100,000 unit/mL suspension 5 ml PO TID prednisone 20 mg tablet 60 mg PO DAILY sulfamethoxazole-trimethoprim 800-160 mg tablet 1 tab PO DAILY ergocalciferol (vitamin D2) 1,250 mcg (50,000 unit) capsule 1.25 mcg PO DAILY lactulose 10 gram/15 mL solution 45 ml PO DAILY PRN (Reason: Constipation) Discharge Orders: Discharge ED (Routine); Ordered 06/07/22 Ordered By: Haris Guo Referrals: Gregory Wilson MD [Primary Care Provider] - Discharge Diet: Low Salt Discharge Activity: Resume usual activity Patient Instructions: Opioid Safety, Pain Management Activity Restrictions/Additional Instructions: You were seen today for swelling. You are given a dose of Lasix in the emergency room. Starting tomorrow recommend that you increase your Lasix at home to 80 mg twice daily for the next 3 days. Follow-up with your primary care doctor on Friday or Friday return to the emergency room if further problems. Coding Level of Care Code ED Varnisher Apprentice for Bravo Martinez
--- NOTE | 2022-06-07 15:52 | ECG_ITS ---
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 Measurements Intervals [place] Rate: 89 P: 71 ND: 168 QRS: 13 QRSD: 89 T: 20 QT: 331 QTc: 403 Interpretive Statements SINUS RHYTHM WITH OCCASIONAL VENTRICULAR PREMATURE COMPLEXES POSSIBLE ANTERIOR MYOCARDIAL INFARCTION , PROBABLY OLD [30 ms Q WAVE IN V3/V4, OR R < 0.2 mV IN V4] Compared to ECG 05/04/2022 22:51:06 Ventricular premature complex(es) now present Myocardial infarct finding still present Electronically Signed On 06-07-2022 23:05:07 CDT by Ana Blackwell M.D. [email or web address]
--- NOTE | 2022-06-07 15:52 | XR_ITS ---
WS: [id number] EXAMINATION: XR chest 1V portable [id number] REASON FOR EXAM: dyspnea/cough COMPARISON: 05/04/2022 ORDER DATE: 06/07/2022 3:52 PM TECHNIQUE: A single, portable frontal chest x-ray was obtained. X-RAY FINDINGS: Lungs: Mild bibasilar opacity is present, consistent with atelectasis. Cannot rule out the possibilit y of infiltrate in the left lower lobe. Upper lobes are clear. Pleural spaces: There may be a small left pleural effusion Heart/Mediastinum: The heart is enlarged. Bones/joints: No acute abnormality. XR/XR chest 1V portable [id number] IMPRESSION: Mild bibasilar opacity is present, greater on the left consistent with atelecta sis or pneumonia. Probable small left pleural effusion. Improvement noted compared with the last study
[2022-06-07 16:11] LABS: Creatine Phosphokinase 155 U/L (39-308)
[2022-06-07 16:14] LABS: Alanine Aminotransferase 177 U/L (0-41); Albumin Level 2.2 g/dL (3.5-5.2); Alkaline Phosphatase 269 U/L (40-130); Anion Gap 11.6 (5-19); Aspartate Amino Transferase 74 U/L (0-40); Blood Urea Nitrogen 39 mg/dL (8-23); Calcium 8.1 mg/dL (8.5-10.5); Carbon Dioxide 28 mmol/L (22-29); Chloride 95 mmol/L (98-107); Globulin 2.5 g/dL (1.3-4.6); Glucose 125 mg/dL (65-115); NT Pro B Type Natriuretic Pept 878 pg/mL (0-125); Osmolality Calculated 281 mOsm/kg (285-295); Potassium 4.6 mmol/L (3.5-5.1); Sodium 130 mmol/L (136-145); Total Bilirubin 0.4 mg/dL (0.15-1.2); Total Protein 4.7 g/dL (6.6-8.7)
[2022-06-07 16:41] VITALS: BP 135/90; O2SAT 91
[2022-06-07 16:41] LABS: Magnesium 2.4 mg/dL (1.7-2.3)
[2022-06-07 18:20] VITALS: BP 134/88; PULSE 78; O2SAT 92
[2022-06-07 18:31] LABS: INR 1.09 (0.8-1.2)
[2022-06-07 18:39] LABS: Ammonia 19 umol/L (16-60)
[2022-06-07] MEDS: FUROsemide 10 mg/mL SDV 4mL 40 MG IVP (19:11)
== END 2022-06-07 19:12 | disposition home or self-care (01) ==
PROVIDERS: Emergency Medicine; Emergency Provider Family Medicine; PCP Family Medicine
DX: N04.9 Nephrotic syndrome with unspecified morphologic changes (principal); K74.60 Unspecified cirrhosis of liver; Z86.73 Personal history of transient ischemic attack (TIA), and cerebral infarction without residual deficits
CPT/HCPCS: 36415; 71045; 80053; 82140; 82550; 83735; 83880; 85025; 85610; 93005; 96374; 99285; J1940

== ENCOUNTER 2022-10-06 17:37 | Emergency (ER) | payer MEDICARE, SELFPAY ==
[2022-10-06 19:02] VITALS: BP 112/72; PULSE 90; RESP 14; TEMP 36.5; O2SAT 98; BMI 25.4
[2022-10-06 19:20] VITALS: BP 122/74; PULSE 83; TEMP 36.5; O2SAT 99
[2022-10-06 19:59] VITALS: PULSE 60
[2022-10-06 20:11] VITALS: BP 148/88; PULSE 84; RESP 16; O2SAT 98
[2022-10-06] MEDS: dexamethasone 10 mg/mL INJ IM (21:18)
[2022-10-06] MEDS: methocarbamol 750 mg Tablet PO (21:21)
[2022-10-06 21:35] VITALS: PULSE 94; RESP 16; O2SAT 98
--- NOTE | 2022-10-06 22:23 | ED_ITS ---
HPI - Extremity Problem General: Chief complaint: Extremity Injury, Lower Stated complaint: Hip and Leg pain Time Seen by Provider: 10/06/22 20:14 Source: patient and family Mode of arrival: ambulatory Limitations: no limitations History of Present Illness: Patient presents the emergency department today for evaluation treatment of continued right mid buttock pain with radiation down to the right leg described as severe and similar left buttock and left leg pain described as mild. Patient denied any known injuries or falls. He admits he spent 8 hours on his riding lawnmower prior to onset of his discomfort. Patient has developed an increase in swelling to the right foot since this time as well. Patient and are concerned as he was diagnosed with nephrotic syndrome in April and is c urrently being followed by nephrology. They have his last nephrology evaluation paperwork as they state that any medication he is given needs to be approved through the nephrology office-as was verbalized to them at the last appointment. Patient has taken Tylenol for his pain without improvement. No bowel or bladder dysfunction. Review of Systems General: Reports: 10 or more systems reviewed and unremarkable except in HPI and below PFSH ED PFSH: Medical History History of CVA (cerebrovascular accident) Lacunar infarcts on MRI S/P extracorporeal shock wave therapy Ureteral calculus Surgical History Hx of shoulder surgery Family History Father Stroke Mother CAD (coronary artery disease) Social History Smoking and tobacco status: never smoked Alcohol intake: never Marital status: Current occupational status: retired Physical Exam Const: COMMON NORMALS: no acute distress, patient oriented x3 and alert HENMT: COMMON NORMALS: normocephalic, atraumatic and hearing grossly normal bilaterally HEAD & SCALP: normocephalic and atraumatic Eye: COMMON NORMALS: Equal, round and reactive pupils present, EOMs intact bilaterally and conjunctivae normal CONJUNCTIVA: Yes conjunctivae normal PUPIL: Yes Equal, round and reactive pupils present Neck/C-Spine: COMMON NORMALS: full ROM and no JVD Lymph: LYMPHATIC: no lymphadenopathy noted Resp: COMMON NORMALS: normal respiratory effort, No retractions and No use of accessory muscles Cardio: COMMON NORMALS: no JVD and regular rate RATE: regular rate Extremity: NARRATIVE EXTREMITY EXAM: Patient has reproducible point tenderness to the right mid buttock region extending somewhat towards the SI joint. Pain described as radiating down the right lateral hip, thigh and to the knee. Patient has similar but less reproducible discomfort due to the mild nature of the discomfort felt to the left gluteal region. He is ambulatory and weightbearing. Neuro: COMMON NORMALS: patient oriented x3 SENSORIUM/ORIENTATION: Yes alert Psych: COMMON NORMALS: mental status grossly normal, Normal thought process present, cooperative and normal affect THOUGHT PROCESS: Normal thought process present Skin: COMMON NORMALS: no rashes or lesions noted and turgor normal NARRATIVE SKIN EXAM: Patient has edema to the right foot. It is minimally pitting-only a brief indention which quickly resolves. GENERAL SKIN EXAM: no rashes or lesions noted and turgor normal Course Vital Signs: Vital signs: Vital Signs Temperature 97.7 F 10/06/22 19:20 Pulse Rate 94 10/06/22 21:35 Respiratory Rate 16 10/06/22 21:35 Blood Pressure 148/88 10/06/22 20:11 Pulse Oximetry 98 10/06/22 21:35 Oxygen Delivery Me thod Room Air 10/06/22 20:11 MDM - Extremity (Nontraumatic) Medical Decision Making Based on patient's history of 8 hours of mowing on his riding lawnmower just prior to onset of his discomfort, this is most likely musculoskeletal in nature and discussed diagnosis of sciatica with patient and family. Patient cannot take NSAIDs and, actually has a history of cirrhosis and should avoid acetaminophen. We discussed treatment but, insists that any medication provided must be approved through the nephrology office. She has the nephrology office number. I called and spoke with the answering service who did page out to Dr. Perdomo at [facility] in [place] who agreed that muscle relaxers and steroids are perfectly fine for this patient. First dose of medication provided here in the emergency department with rest being provided as a prescription to take over the next several days. We discussed keeping the right lower extremity up and elevated. It was wrapped here with Hemant bandaging and, explained that loosening of the bandaging is to be expected over the next couple of days and can be removed at that time. Patient has an upcoming appointment with his primary care doctor on Friday and can have follow-up at that time. Patient verbalized understanding and agreement to treatment plan. Differential Diagnosis Likely gout, cellulitis, superficial thrombophlebitis and lower extremity edema Discharge Plan Discharge Patient Disposition: Home Clinical Impression: Nephrotic syndrome, Edema of right foot, Sciatica without lumbago Condition: Stable Prescriptions: New methocarbamol 750 mg tablet 750 mg PO TID PRN (Reason: sciatica) Qty: 15 0RF methylprednisolone 4 mg tablets,dose pack See Rx Instructions PO .COMPLEX Qty: 21 0RF Rx Instructions: orally per package directions lidocaine 5 % adhesive patch,medicated 1 patch topical DAILY Qty: 15 0RF Rx Instructions: 1 patch topically daily to area of worst pain No Action furosemide 40 mg tablet 40 mg PO BID atorvastatin 40 mg tablet 20 mg PO DAILY nystatin 100,000 unit/mL suspension 5 ml PO TID prednisone 20 mg tablet 60 mg PO DAILY sulfamethoxazole-trimethoprim 800-160 mg tablet 1 tab PO DAILY ergocalciferol (vitamin D2) 1,250 mcg (50,000 unit) capsule 1.25 mcg PO DAILY lactulose 10 gram/15 mL solution 45 ml PO DAILY PRN (Reason: Constipation) Discharge Orders: Discharge ED (Routine); Ordered 10/06/22 Ordered By: Savanah Gleason Referrals: Gregory Wilson MD [Primary Care Provider] - Discharge Diet: Usual diet Discharge Activity: Limit activity as instructed Patient Instructions: Sciatica (ED) Activity Restrictions/Additional Instructions: The description of your pain and your physical examination are consistent with a sciatic nerve pain. This pain can be extremely uncomfortable-making it difficult to find positioning to allow you to rest. You can be due to issues with your low back or, can be due to excessive pressure on your buttock region. I did reach out and speak with your nephrology office and they agreed that my treatment plan is appropriate for your current kidney condition. I encourage you to wear the compressive Hemant bandaging for the next day or so. It is my hope that with more time off your feet, your foot elevated, and compressive dressing on, the swelling has significantly decreased and you noticed loosening or falling off of the bandaging material. Keep the upcoming appointment you have with your primary care doctor on Friday for recheck. Coding Level of Care Code ED Strategic Planning Analyst for [facility]
== END 2022-10-06 21:37 | disposition home or self-care (01) ==
PROVIDERS: Emergency Provider Physician Assistant; PCP Family Medicine
DX: N05.9 Unspecified nephritic syndrome with unspecified morphologic changes (principal); R60.0 Localized edema; M54.30 Sciatica, unspecified side; Z86.73 Personal history of transient ischemic attack (TIA), and cerebral infarction without residual deficits
CPT/HCPCS: 96372; 99284; J1100

== ENCOUNTER 2022-12-05 12:40 | Outpatient (CLI) | payer MEDICARE, SELFPAY ==
--- NOTE | 2022-12-05 12:47 | MR_ITS ---
WS: [id number] MRI LUMBAR SPINE NONCONTRAST HISTORY: SPINAL STENOSIS LUMBAR REGION COMPARISON: None available. TECHNIQUE: Sagittal and axial multisequence imaging is submitted. L1 retrolisthesis by 3 mm. L4 anterolisthesis by 3.8 mm. Very mild anterior wedging of L2. Mild conca ve deformity in the superior endplate is new since 05/04/2022. There is a small amount of edema involv ing the central superior endplate of L2. Disc spaces are very mildly desiccated without narrowing. Conus terminates normally at L1-2 disc level. L1-L2: Mild annular disc bulging encroaching upon the ventral thecal sac there are small osteophyte a long the posterior inferior endplate of L1 also encroaching upon the thecal sac. Moderate ligamentum flavum and facet arthritis. Severe RIGHT and moderate LEFT foraminal stenosis. Moderate bilateral sub articular recess encroachment. L2-L3: Diffuse annular disc bulging with ligamentum flavum and facet arthritis. Mild central and bila teral subarticular recess stenosis. Moderate to severe RIGHT and moderate LEFT foraminal stenosis. L3-L4: Diffuse annular disc bulging encroaching upon the ventral thecal sac and the subarticular rece sses. Moderate ligamentum flavum and facet arthritis. Facet arthritis encroaching upon the posterior thecal sac. Moderate to severe central, bilateral subarticular recess and foraminal stenosis. L4-L5: Severe central, bilateral subarticular recess and moderate foraminal stenosis. There is near c omplete effacement of the central canal due to combination of disc and facet disease. Severe ligament um flavum protrusion upon the central canal. L5-S1: Mild annular disc bulging with encroachment upon the subarticular recesses and the S1 nerve ro ots. Severe bilateral facet joint arthritis. Mild central with moderate bilateral subarticular recess and foraminal stenosis. Partially visualized intermediate signal mass in the RIGHT kidney measures 1.[address] from demonstrated a complex cyst in the RIGHT kidney. IMPRESSION: 1. L1 retrolisthesis by 3 mm and L4 anterolisthesis by 3.8 mm. 2. Mild anterior wedging of L2 is new since 05/04/2022. Small amount of edema along the superior endpl ate suggesting acute in nature. Multiple areas of significant stenosis throughout the lumbar spine are multifactorial. 3. L4-5: Severe central, bilateral subarticular recess and moderate foraminal stenosis. 4. L3-4: Moderate to severe central, bilateral subarticular recess and foraminal stenosis. 5. L2-3: Mild central and bilateral subarticular recess stenosis. Moderate to severe RIGHT and modera te LEFT foraminal stenosis. 6. L1-2: Severe RIGHT and moderate LEFT foraminal stenosis and moderate bilateral subarticular recess encroachment. 7. L5-S1: Severe bilateral facet joint arthritis with mild central, moderate bilateral subarticular r ecess and foraminal stenosis.
== END 2022-12-05 12:41 | disposition home or self-care (01) ==
PROVIDERS: PCP Family Medicine; Visit Provider Family Medicine
DX: M48.061 Spinal stenosis, lumbar region without neurogenic claudication (principal); M43.16 Spondylolisthesis, lumbar region; M47.817 Spondylosis without myelopathy or radiculopathy, lumbosacral region
CPT/HCPCS: 72148

== ENCOUNTER 2022-12-25 15:00 | Outpatient (CLI) | payer MEDICARE, SELFPAY ==
--- NOTE | 2022-12-25 15:06 | XR_ITS ---
WS: [id number] DEXA (DUAL ENERGY X-RAY ABSORPTIOMETRY) Bone mineral density was performed using a Pulsity machine. HISTORY: CLOSED FX LUMBAR VERTEBRA COMPARISON: None available. Lumbar spine BMD (L1-L4): 1.125 g/cm2 T score: -0.8 Z score: -0.2 Total hip BMD: Left: 0.686 g/cm2. T score: -2.9 Z score: -2.1 Right: 0.713 g/cm2. T score: -2.7 Z score: -1.9 10 year probability of a major osteoporotic fracture is 26.7%. IMPRESSION: OSTEOPOROSIS. Male patient.
== END 2022-12-25 15:01 | disposition home or self-care (01) ==
LOC: RAD 15:01
PROVIDERS: PCP Family Medicine; Visit Provider Family Medicine
DX: S32.009A Unspecified fracture of unspecified lumbar vertebra, initial encounter for closed fracture (principal); X58.XXXA Exposure to other specified factors, initial encounter; M81.0 Age-related osteoporosis without current pathological fracture
CPT/HCPCS: 77080

== ENCOUNTER → 2024-02-26 14:07 | Outpatient (BNVA) | payer MEDICARE, SELFPAY | PROVIDERS: PCP Family Medicine; Referring Provider Family Medicine; Visit Provider Specialist | DX: R56.9 Unspecified convulsions (principal) | CPT/HCPCS: 95816 ==

== ENCOUNTER 2024-09-28 11:32 | Inpatient (IN) | payer MEDICARE, SELFPAY ==
[2024-09-28] VITALS (33 sets, daily range): BP systolic 130–147; BP diastolic 84–99; PULSE 77–111; RESP 17–30; TEMP 36.7; O2SAT 92–98; BMI 29.2
--- NOTE | 2024-09-28 11:34 | XRR_ITS ---
PROCEDURE INFORMATION: Exam: XR Chest Exam date and time: 09/28/2024 11:37 AM Age: 74 years old Clinical indication: Shortness of breath; Additional info: SOB TECHNIQUE: Imaging protocol: Radiologic exam of the chest. Views: 1 view. COMPARISON: CR XR chest 2V* [id number] 09/23/2024 11:07 AM FINDINGS: Lungs: Increasing parenchymal density at the left lung base, consistent with infiltrate. Faint 17 mm density has developed in the right mid lung zone. Pleural spaces: Small left effusion. No right effusion. No pneumothorax. Heart/Mediastinum: Unremarkable. No cardiomegaly. Bones/joints: The osseous structures are unchanged. XR/XR chest 1V portable [id number] IMPRESSION: 1. Increasing left base infiltrate most consistent with pneumonia. 2. Small right mid lung density which could represent additional infiltrate. 3. Mild left effusion. 4. Continued radiographic follow-up is recommended.
--- NOTE | 2024-09-28 12:15 | W.ED.GENADLT ---
HPI - General Adult General: Chief complaint: General Medical Stated complaint: fluid build up, dr castle sent Time Seen by Provider: 09/28/24 12:13 History of Present Illness: 74-year-old male presents emergency room complaining of increased fluid he has some mild signs of congestive heart failure he was seen by his primary care doctor and sent to the emergency room and gained quite a bit of fluid weight over the last several days. Having orthopnea. He has a known history of chronic kidney disease he was previously seen in [place] had a biopsy done biopsy not currently available denies any chest or abdominal pain at this time Associated symptoms: Reports dyspnea; Deny chest pain or rash Related Data Home Medications ?Medication ?Instructions ?Recorded ?Confirmed levetiracetam 500 mg tablet 500 mg PO BID 02/26/24 09/28/24 amoxicillin 875 mg-potassium 1 tab PO Q12H 09/28/24 09/28/24 clavulanate 125 mg tablet cholecalciferol (vitamin D3) 25 25 mcg PO DAILY 09/28/24 09/28/24 mcg (1,000 unit) tablet (Vitamin D3) doxycycline hyclate 100 mg capsule 100 mg PO BID 09/28/24 09/28/24 polyethylene glycol 3350 17 17 g PO DAILY 09/28/24 09/28/24 gram/dose oral powder (Miralax) Allergies Allergy/AdvReac Type Severity Reaction Status Date / Time No Known Allergies Allergy Verified 02/26/24 15:40 Review of Systems Const: Denies: fever(s) or chills Card: Reports: swelling of feet/ankles, lightheadedness, dyspnea on exertion and orthopnea; Denies: chest pain Resp: Reports: dyspnea GI: Denies: abdominal pain : Denies: dysuria, urinary frequency or urinary urgency Musc: Denies: neck pain or back pain Skin/Breast: Denies: rash PFSH ED PFSH: Medical History History of CVA (cerebrovascular accident) Lacunar infarcts on MRI Ureteral calculus S/P extracorporeal shock wave therapy Surgical History Hx of shoulder surgery Family History Father Stroke Mother CAD (coronary artery disease) Social History Smoking and tobacco/nicotine status: never used tobacco/nicotine Alcohol intake: never Marital status: Current occupational status: retired Physical Exam Const: COMMON NORMALS: no acute distress GENERAL APPEARANCE: cooperative and comfortable ORIENTATION/CONSCIOUSNESS: Yes awake, Yes oriented to person, Yes oriented to place and Yes oriented to time HENMT: COMMON NORMALS: normocephalic, atraumatic and hearing grossly normal bilaterally HEAD & SCALP: normocephalic and atraumatic Resp: COMMON NORMALS: normal respiratory effort, No retractions, No use of accessory muscles and clear to auscultation bilaterally AUSCULTATION: clear to auscultation bilaterally Cardio: COMMON NORMALS: regular rate, regular rhythm and No murmurs present (Cardio) RATE: regular rate RHYTHM: regular rhythm GI: COMMON NORMALS: Soft to palpation and No hepatosplenomegaly present AUSCULTATION: Yes normoactive bowel sounds PALPATION: Yes Soft to palpation, No Tenderness to palpation present (GI), No Guarding due to palpation present (GI) and Yes No hepatosplenomegaly present Extremity: COMMON NORMALS: normal to inspection, capillary refill normal, no clubbing, cyanosis or edema, no calf tenderness and no pedal edema Neuro: SENSORIUM/ORIENTATION: Yes oriented to person, Yes oriented to place and Yes oriented to time Skin: COMMON NORMALS: no rashes or lesions noted GENERAL SKIN EXAM: no rashes or lesions noted Course Vital Signs: Vital signs: Vital Signs Temperature 98.1 F 09/28/24 12:15 Pulse Rate 91 09/28/24 12:15 Respiratory Rate 18 09/28/24 12:15 Blood Pressure 147/99 09/28/24 12:15 Pulse Oximetry 98 09/28/24 12:15 Oxygen Delivery Me thod Room Air 09/28/24 12:15 MDM - General Adult Medical Decision Making Discussed with hospitalist and nephrology will admit for acute nephrotic syndrome congestive heart failure. It was a bit of a hold-up we need to confirm previous biopsy eventually agreeable to secure it through Dr. 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 Pham is not comfortable admitting him here admitted to hospitalist service. Suspect finding the chest x-ray is due to fluid overload. Medical Records CONCLUSIONS Normal left ventricular size and systolic function, EF 64 %. No regional wall motion abnormalities. Grade I/IV diastolic dysfunction (abnormal relaxation filling pattern), normal to mildly elevated filling pressures. Thickened mitral valve. Mild mitral valve regurgitation. Mildly increased left atrial size. Mild aortic valve regurgitation. Trace tricuspid valve regurgitation. Estimated pulmonary artery peak systolic pressure 24 mm of Hg There is no pericardial effusion. There are no intracardiac masses. No similar previous studies are available for comparison Dr Ana Blackwell MD [facility] (Electronically Signed) Final Date: 05 May 2022 Lab Data 09/28/24 12:09 09/28/24 12:09 Radiology Impressions Chest X-Ray 09/28/24 11:34 IMPRESSION: 1. Increasing left base infiltrate most consistent with pneumonia. 2. Small right mid lung density which could represent additional infiltrate. 3. Mild left effusion. 4. Continued radiographic follow-up is recommended. Laboratory Results WBC 9.65 10^3/uL (3.29-11.43) 09/28/24 12:09 RBC 4.55 10^6/uL (3.85-5.65) 09/28/24 12:09 Hgb 14.90 g/dL (11.27-16.99) 09/28/24 12:09 Hct 43.4 % (37-53) 09/28/24 12:09 MCV 95.4 fl (82-101) 09/28/24 12:09 MCH 32.7 pg (27-33) 09/28/24 12:09 MCHC 34.3 g/dL (30-55) 09/28/24 12:09 RDW 13.0 % (12.1-15.1) 09/28/24 12:09 Plt Count 305 10^3/cmm (157-399) 09/28/24 12:09 MPV 9.5 fL (7.4-10.4) 09/28/24 12:09 Neut % (Auto) 82.7 % 09/28/24 12:09 Lymph % (Auto) 8.4 % 09/28/24 12:09 [place] % (Auto) 6.1 % 09/28/24 12:09 Eos % (Auto) 1.1 % 09/28/24 12:09 Baso % (Auto) 0.4 % 09/28/24 12:09 Neut # (Auto) 7.97 10^3/uL (1.8-7.7) H 09/28/24 12:09 Lymph # (Auto) 0.8 10^3/uL (0.8-4.8) 09/28/24 12:09 [place] # (Auto) 0.6 10^3/uL (0.2-0.9) 09/28/24 12:09 Eos # (Auto) 0.1 10^3/uL (0.0-0.8) 09/28/24 12:09 Baso # (Auto) 0.0 10^3/uL (0.0-0.1) 09/28/24 12:09 Nucleated RBC % (auto) 0 % 09/28/24 12:09 Nucleated RBCs # 0.0 /100WBC 09/28/24 12:09 Sodium 125 mmol/L (136-145) L 09/28/24 12:09 Potassium 5.0 mmol/L (3.5-5.1) 09/28/24 12:09 Chloride 93 mmol/L (98-107) L 09/28/24 12:09 Carbon Dioxide 19 mmol/L (22-29) L 09/28/24 12:09 Anion Gap 18.0 (5-19) 09/28/24 12:09 BUN 92 mg/dL (8-23) H* D 09/28/24 12:09 Creatinine 2.2 mg/dL (0.7-1.2) H 09/28/24 12:09 GFR Calculation Not Reportable 09/28/24 12:09 Glucose 100 mg/dL (65-115) 09/28/24 12:09 Calculated Osmolality 288 mOsm/kg (285-295) 09/28/24 12:09 Lactic Acid 1.1 mmol/L (0.5-2.2) 09/28/24 12:09 Uric Acid 9.4 mg/dL (3.4-7.0) H 09/28/24 12:09 Calcium 8.0 mg/dL (8.5-10.5) L 09/28/24 12:09 Magnesium 2.6 mg/dL (1.7-2.3) H 09/28/24 12:09 Total Bilirubin 0.2 mg/dL (0.15-1.2) 09/28/24 12:09 AST 61 U/L (0-40) H 09/28/24 12:09 ALT 40 U/L (0-41) 09/28/24 12:09 Alkaline Phosphatase 267 U/L (40-130) H 09/28/24 12:09 C-Reactive Protein 10.0 mg/L (0.0-4.9) H 09/28/24 12:09 NT-Pro-B Natriuret Pep 2299 pg/mL (0-125) H 09/28/24 12:09 Total Protein 5.3 g/dL (6.6-8.7) L 09/28/24 12:09 Albumin 1.6 g/dL (3.5-5.2) L 09/28/24 12:09 Globulin 3.7 g/dL (1.3-4.6) 09/28/24 12:09 Urine Color Yellow (Yellow) 09/28/24 13:13 Urine Appearance Cloudy (CLEAR) A 09/28/24 13:13 Urine pH 5.5 (5-7) 09/28/24 13:13 Ur Specific [place] 1.017 (1.005-1.030) 09/28/24 13:13 Urine Protein 4+ (Negative) A 09/28/24 13:13 Urine Glucose (UA) Negative (Normal) 09/28/24 13:13 Urine Ketones Negative (Negative) 09/28/24 13:13 Urine Blood 2+ (Negative) A 09/28/24 13:13 Urine Nitrate Negative (Negative) 09/28/24 13:13 Urine Bilirubin Negative (Negative) 09/28/24 13:13 Urine Urobilinogen 0.2 mg/dL (Negative) 09/28/24 13:13 Ur Leukocyte Esterase Negative (Negative) 09/28/24 13:13 Urine RBC 0-4 /hpf (0-2) H 09/28/24 13:13 Urine WBC None /hpf (0-5) 09/28/24 13:13 Ur Squamous Epith Cells 0-4 /hpf (0-5) H 09/28/24 13:13 Amorphous Sediment Not Reportable 09/28/24 13:13 Urine Bacteria 2+ /hpf (NONE) H 09/28/24 13:13 Fine Granular Casts 0-4 /lpf H 09/28/24 13:13 All radiology interpretation(s) finalized by discharge Discharge Plan Discharge Patient Disposition: Admitted As Inpatient Admit Provider: Zander Elliott Clinical Impression: Acute kidney injury, Nephrotic syndrome, Hyponatremia, Transaminitis, Minimal change disease Condition: Stable Coding Level of Care Code ED Stubber for [facility]ravo Martinez
[2024-09-28 12:18] LABS: Hematocrit 43.4 % (37-53); Hemoglobin 14.90 g/dL (11.27-16.99); Mean Corpuscular HGB Conc 34.3 g/dL (30-55); Mean Corpuscular Hemoglobin 32.7 pg (27-33); Mean Corpuscular Volume 95.4 fl (82-101); Nucleated Red Blood Cells % 0 %; Platelet Count 305 10^3/cmm (157-399); Red Blood Count 4.55 10^6/uL (3.85-5.65); White Blood Count 9.65 10^3/uL (3.29-11.43)
--- OUTSIDE RECORDS SUMMARY | 2024-09-28 12:27 | XMS_ITS | Continuity of Care Document ---
Author Organization THERESA Fred [facility]berg [facility] ([facility] Address [address] [place] [address] Care Team Providers Care Proof Press Operator Name Role Phone NAS COLLINS Primary Care Provider Assessment Encounter Date Assessment Date Assessment LastModified by Organization Details LastModified Time 09/23/2024 09/23/2024 he is passing some gas and some stool [email or web address] Not available 09/23/2024 11:26:18 Plan of Treatment Reminders Order Date Submit Date Provider Last Modified By Organization Details Last Modified Time Details Appointments OFFICE VISIT [place] 2024 10:30A M Nas Collins MD Not available Not available Not available OFFICE VISIT [place] 2024 09:15A Nicolasa Collins MD Not available Not available Not available Lab SARS CoV 2 RNA, QL probe, nasophary nx 2024 025 [facility] ([facility]), [address] [place], [address], 09/23/2024 12:07:56 CMP, serum or plasma 2024 025 [facility], [address], [facility] [address], [place], [address], 09/23/2024 13:53:19 CBC 2024 025 [facility] [place] Fred [facility], [address], [facility], [place], [address], 09/23/2024 12:48:17 urinalysi s, complete 2024 [place] Fred [facility], [address], [address], [place], [address], 09/23/2024 18:01:31 Referral None recorded. Procedures None recorded. Surgeries None recorded. Imaging XR, chest, 2 view 2024 [email or web address] [facility] ([facility]), [address] [place], [address], 09/23/2024 13:25:20 XR, abdomen 2024 [facility] ([facility]), [address] [place], [address], 09/24/2024 13:18:26 Medication Orders doxycycli ne hyclate 100 mg capsule 2024 [id number] [address], [facility], [place], [address], 09/23/2024 12:55:01 amoxicill in 875 mg-potass ium clavulana te 125 mg tablet 2024 [id number], [address], [facility], [place], [address], 09/23/2024 12:55:00 Patient TargetsNo targets recorded. Patient InstructionsNo instructions recorded. Reason for Referral None Reported. Results Created Date Observation Date Name Description Value Unit Range Abnormal Flag Note LastModifiedBy Organization Detail LastModifiedTime 09/28/1909/27/2024 SARS CoV 2 RNA, QL probe , nasop haryn x Covid negati ve Not Available [facility] ([facility]) [address] [place], [address], 09/23/2024 12:06:33 09/24/1909/23/2024 XR, chest , 2 view No observ ation record ed. [email or web address] [facility] ([facility] [address] [place], [address], 09/27/2024 13:09:36 09/25/19 25 09/23/2024 XR, chest , 2 view No observ ation record ed. [email or web address] [facility] [address] [place], [address], 09/27/2024 13:19:46 09/25/19 25 09/23/2024 XR, abdom en No observ ation record ed. [address] [place], [address], 09/27/2024 13:09:37 Result Notes None recorded. Problems Name Problem SNOMED Code Status Onset Date Resolution Date Notes Provider Name and Address Organization Details Recorded Time Thromboc ytopenic disorder 627043272 Active 2022 THROMBOC YTOPENIA Mica Whitehead [facility] 5 15:50:49 Closed fracture lumbar vertebra , wedge 916506312 Active 2022 Mica [facility]head [facility] 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 5 15:50:49 Disturba nce of consciou sness 5985466 Completed 202306/14/2024 Mica [facility]head [facility] 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 5 15:50:49 Tonic epilepti c seizure 106355406 Active 2024 [facility] 15:50:49 Constipa tion 15378434 Active 2024 [facility] 15:50:49 Family history of malignan t neoplasm of prostate 505446699 Completed 202406/14/2024 [facility] 15:51:54 Cirrhosi s of liver 13109751 Active 2022 [facility] 3 09:44:54 Minimal change disease 43422958 Active 2022 [facility] 09:46:24 Problem Notes None recorded. Procedures Surgical History Date Name Laterality Status Provider Name and Address Organization Details Recorded Time 3 kidney biopsy completed Mica Charley [facility] 06/14/2024 15:51:39 1 colonoscopy completed FIDEL BETTENCOURT [facility] 06/07/2024 09:02:54 Cataract Surgery completed Vikki Ceja [facility] 09/28/2024 11:32:45 Imaging Results None recorded. Procedure Notes None recorded. Medical Equipment None Reported. Allergies Allergen ID Allergen Name Allergen Category Reaction Reaction Severity Criticality Documentation Date Start Date Code Code System Note Provider Name and Address Organization Details Recorded Time 90354 lactulose medicatio n itching Not available Not available 10/12/2022 6218 RxNorm React ion: Itchi ng, Rash; Comme nt: Recor ded 04/08 1:29P M by Vivien Lee on, PROCESSING CLERK, Offic e Visit ; Promo rod; Signi fican ce: *; Reaso n: Drug aller gy; ; Not Available [facility] 3 02:24:00 Medications Name Sig Start Date Stop Date Status Note LastModified by Organization Details LastModified Time amoxicill in 500 mg capsule TAKE 2 CAPSULES BY MOUTH TWICE A DAY FOR 10 DAYS 06/07 completed Not Available Not Available Not Available furosemid e 40 mg tablet TAKE 1 TABLET BY MOUTH TWICE A DAY 06/26 completed Not Available Not Available Not Available atorvasta tin 40 mg tablet TAKE 1/2 TABLET BY MOUTH EVERY DAY 10/09 completed Not Available Not Available Not Available nystatin 100,000 unit/mL oral suspensio n TAKE 5 MLS BY MOUTH 3 TIMES A DAY 10/09 completed Not Available Not Available Not Available prednison e 10 mg tablet 10/09 completed currentl y on 40mg daily Not Available Not Available Not Available doxycycli ne hyclate 100 mg capsule TAKE 1 CAPSULE BY MOUTH TWICE A DAY FOR 10 DAYS active Not Available Not Available No t Available cetirizin e 10 mg tablet TAKE 1 TABLET BY MOUTH EVERY DAY 06/21 completed Not Available Not Available Not Available levetirac etam 500 mg tablet TAKE 1 TABLET BY MOUTH TWICE A DAY active Not Available Not Available No t Available prednison e 20 mg tablet TAKE 3 TABLETS BY MOUTH EVERY DAY 08/01 completed Not Available Not Available Not Available sulfameth oxazole 800 mg-trimet hoprim 160 mg tablet TAKE 1 TABLET BY MOUTH EVERY DAY 10/09 completed Not Available Not Available Not Available tramadol 50 mg tablet PLEASE SEE ATTACHED FOR DETAILED DIRECTIO NS 12/16 completed Not Available Not Available Not Available betametha sone acetate and sodium phos 6 mg/mL suspensio n for injection Take 2 mL by injectio n route. 12/16 completed Not Available Not Available Not Available methocarb lonny 750 mg tablet 12/16 completed Not Available Not Available Not Available lidocaine 5 % topical patch APPLY 1 PATCH DAILY TO AREA OF WORST PAIN 12/16 completed Not Available Not Available Not Available losartan 25 mg tablet TAKE 1 TABLET BY MOUTH EVERY DAY 06/21 completed Not Available Not Available Not Available brimonidi ne 0.2 % eye drops INSTILL 1 DROP INTO BOTH EYES TWICE A DAY 09/28 completed Not Available Not Available Not Available dorzolami de 22.3 mg-timolo l 6.8 mg/mL eye drops INSTILL 1 DROP INTO BOTH EYES TWICE A DAY 09/28 completed Not Available Not Available Not Available furosemid e 20 mg tablet TAKE 1 TABLET EVERY DAY BY ORAL ROUTE NEEDED. 08/01 completed Not Available Not Available Not Available ergocalci ferol (vitamin D2) 1,250 mcg (50,000 unit) capsule TAKE ONE CAPSULE MONTHLY 12/18 completed Not Available Not Available Not Available polyethyl pancho glycol 3350 17 gram/dose oral powder DISSOLVE 17 GM IN LIQUID AND DRINK DAILY NEEDED active Not Available Not Available No t Available methylpre dnisolone 4 mg tablets in a dose pack 10/09 completed Not Available Not Available Not Available fluticaso ne propionat e 50 mcg/actua tion nasal spray,priyanka pension USE 1 SPRAY EACH NOSTRIL DAILY 06/21 completed Not Available Not Available Not Available amoxicill in 875 mg-potass ium clavulana te 125 mg tablet TAKE 1 TABLET BY MOUTH EVERY 12 HOURS FOR 10 DAYS active Not Available Not Available No t Available Vitamin D3 25 mcg (1,000 unit) capsule Take 1 capsule by oral route for 90 days. 2023 active Not Available Not Available Not Avai lable lactulose 10 gram/15 mL oral solution TAKE 45 ML BY MOUTH 2 TIMES DAILY 10/09 completed Not Available Not Available Not Available Aspirin EC daily 12/16 completed Recorded 04/08/19 1:57PM by Nas Collins MD, Office Visit; Refill Quantity : 0; Not Available Not Available Not Available Alphagan P 0.1 % eye drops INSTILL 1 DROP INTO AFFECTED EYE(S) BY OPHTHALM IC ROUTE EVERY 12 HOURS 09/28 completed Not Available Not Available Not Available Prolia 60 mg/mL subcutane ous syringe Inject 1 ml sc q 6 months 12/18 completed Not Available Not Available Not Available lidocaine 3.5 % topical patch 1 daily 12/16 completed Not Available Not Available Not Available Vitals Date Recorded Body height Body mass index (BMI) Body weight Body temperature Oxygen saturation Oxygen saturation in Arterial blood by Pulse oximetry Heart rate Respiratory rate Systolic And Diastolic Provider Name and Address Organization Details Last Updated DateTime 171.45 cm 29.5 kg/m2 26793.1 4 g 96.9 [degF] 94 % 94 % 96 /min 18 /min 126/80 mm[Hg] TYLER MONTANEZ [facility] 5 10:47:15 Social History Question Answer Notes LastModified by [employer] Details LastModified Time Tobacco Smoking Status Never Smoker FIDEL SG lund [facility] 10/09/2022 08:28:10 What Was The Date Of Your Most Recent Tobacco Screening? 09/23/2024 [email or web address] Information not available 09/23/2024 Sex: Unknown Functional Status Question Answer Note LastModified by [employer] Details LastModified Time Do you use any illicit or recreational drugs? No [email or web address] Information not available 10/09/2022 What is your level of alcohol consumption? None [email or web address] Information not available 10/09/2022 Mental Status None recorded. Family History Relationship Description Onset Age of this Age Resolved Age Notes LastModified by Organization Details LastModified Time Brother Amyotrophic lateral sclerosis Not available 10/09 08:26:49 Brother Carcinoma of prostate Not available 10/09 08:26:57 Brother Aneurysm of thoracic aorta niece, nephew [email or web address] Not available 10/09/2022 08:27:39 Brother Coronary atherosclero sis [email or web address] Not available 10/09 08:27:54 Father Coronary atherosclero sis [email or web address] Not available 10/09 08:27:54 Medical History No medical history recorded. Immunizations Vaccine Type Date Status Note Provider Nam e and Address Organization Details Recorded Time Influenza, adjuvanted, trivalent, PF 8 completed Mica lund [facility] 08/01/2022 11:42:19 zoster recombinant 8 completed [facility] 08/01/2022 11:42:19 zoster recombinant 8 completed Mica lund, [facility] 08/01/2022 11:42:19 COVID-19, mRNA, LNP-S, PF, 100 mcg/0.5mL dose or 50 mcg/0.25mL dose 1 completed Mica Charley [facility] 08/01/2022 11:42:20 COVID-19, mRNA, LNP-S, PF, 100 mcg/0.5mL dose or 50 mcg/0.25mL dose 1 completed Mica [facility] 08/01/2022 11:42:20 Pneumococcal conjugate PCV20, polysaccharide GMI259 conjugate, adjuvant, PF 2 completed Mica Whitehead [facility] 08/01/2022 11:42:20 pneumococcal polysaccharide PPV23 6 completed Mica Charley [facility] 08/01/2022 11:42:20 Pneumococcal conjugate PCV 13 7 completed Mica [facility]head [facility] 08/01/2022 11:42:20 Influenza, high-dose, trivalent, PF 9 completed Mica [facility]head [facility] 08/01/2022 11:42:20 Influenza, high-dose, trivalent, PF 7 completed Mica Charley [facility] 08/01/2022 11:42:20 Influenza, high-dose, trivalent, PF 6 completed Mica [facility]head [facility] 08/01/2022 11:42:20 zoster live 8 completed Not Available [facility] 01/01/2023 08:05:39 zoster live 8 completed Not Available [facility] 01/01/2023 08:05:39 Influenza, split virus, trivalent, preservative 8 completed Not Available [facility] 01/01/2023 08:05:39 Pneumococcal conjugate PCV 13 7 completed Not Available [facility] 01/01/2023 08:05:39 Past Encounters Encounter ID Performer Location Encounter Start Date Encounter Closed Date Diagnosis/Indication Diagnosis SNOMED-CT Code Diagnosis ICD10 Code Diagnosis Note [id number] Nas Collins MD [facility] ([facility]) [address] [place] [address] 09/23/2024 10:19:08 09/23/2024 13:25:19 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 renal function remains normal. Lower resp iratory tract infection 06830597 J22 Acute constipation 72299 9006 K59.00 Health Concerns Section Related Observation LastModified by Organization Detai ls LastModified Time None Recorded Concern Status LastModified by Organization Details LastModified Time None Recorded Payers Encounter Date Sequence Insurance Name Policy Number Policy Mendiola Covered Member ID Mendiola Member ID Guarantor Name 09/23/2024 1 [employer] (MEDICARE REPLACEMENT/A DVANTAGE - PPO) [id number] Zurdo Mora [id number] Zurdo Mora Notes Date Note Type Note Provider Name and Address Organization Details Recorded Time 09/23/2024 text/html Upper Respirator y SymptomsReported bypatient.Location:[facility] Quality:productive cough Severity:moderate Onset/Timing:gradual Context:no sick contacts; non-smoker Associated Symptoms:green sputum Patient states he's had chest congestion for about a week. He has a productive cough, no fever. He also states he's having some constipation. He has some abdominal pain and feels like he needs to go to the bathroom but is not able to go much. he doesn't really think he had a fever. Nas Collins MD [address] [place] [address], [phone], [facility], Ruth 09/23/2024 12:56:00
--- OUTSIDE RECORDS SUMMARY | 2024-09-28 12:28 | XMS_ITS | Continuity of Care Document ---
Author Organization [facility], [place], [facility] ([facility]) Address [address] [place] [address] Care Team Providers Care Graduate Engineer Name Role Phone NAS COLLINS Primary Care Provider [phone] Assessment Encounter Date Assessment Date Assessment LastModified by Organization Details LastModified Time 09/28/2024 09/28/2024 wolfgang has a history of acute nephrotic syndrome renal failure. this resolved and bx/antibodies did not find a real diagnosis. concern for this recurring in addition alk phos is high needs urgent gallbladder and colon imaging. would recommend repeat cxr for new onset crackles likely due to pulmedema but had suspicion for pneumonia on initial presentation. will send to er for management of severe edema with acute renal failure, elevated alk phos, tachycardia, obstipation, ruq pain, s/p ttp, abnormal ua with 3+ protein and 25 wbc/rbc. [email or web address] Not available 09/28/2024 12:21:24 Plan of Treatment Reminders Order Date Submit Date Provider Last Modified By Organization Details Last Modified Time Details Appointments OFFICE VISIT [place] 2024 10:30A M Nas Collins MD Not available Not available Not available OFFICE VISIT [place] 2024 09:15A M Nas Collins MD Not available Not available Not available Lab None recorded . Referral None recorded . Procedures None recorded . Surgeries None recorded . Imaging None recorded . Medication Orders None recorded . Patient TargetsNo targets recorded. Patient InstructionsNo instructions recorded. Reason for Referral None Reported. Results Created Date Observation Date Name Description Value Unit Range Abnormal Flag Note LastModifiedBy Organization Detail LastModifiedTime 09/24/1909/23/2024 XR, chest , 2 view No observ ation record ed. [email or web address] [facility] [address] [place], [address], 09/27/2024 13:09:36 09/25/19 25 09/23/2024 XR, chest , 2 view No observ ation record ed. [email or web address] [facility] [address] [place], [address], 09/27/2024 13:19:46 09/25/19 25 09/23/2024 XR, abdom en No observ ation record ed. [email or web address] [facility] [address] [place], [address], 09/27/2024 13:09:37 Result Notes None recorded. Problems Name Problem SNOMED Code Status Onset Date Resolution Date Notes Provider Name and Address Organization Details Recorded Time Thromboc ytopenic disorder 844991534 Active 2022 THROMBOC YTOPENIA Mica lund [facility] 5 15:50:49 Closed fracture lumbar vertebra , wedge 681271435 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 5 15:50:49 Disturba nce of consciou sness 0060767 Completed 202306/14/2024 Mica lund [facility] 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 5 15:50:49 Tonic epilepti c seizure 517570327 Active 2024 [facility] 15:50:49 Constipa tion 47250027 Active 2024 [facility] 15:50:49 Family history of malignan t neoplasm of prostate 989032372 Completed 202406/14/2024 [facility] 5 15:51:54 Cirrhosi s of liver 61268886 Active 2022 [facility] 3 09:44:54 Minimal change disease 31637617 Active 2022 [facility]OURT [facility] 3 09:46:24 Problem Notes None recorded. Procedures Surgical History Date Name Laterality Status Provider Name and Address Organization Details Recorded Time 3 kidney biopsy completed Mica Doyleoch [facility] 06/14/2024 15:51:39 1 colonoscopy completed FIDEL BETTENCOURT [facility] 06/07/2024 09:02:54 Cataract Surgery completed Vikki Ceja [facility] 09/28/2024 11:32:45 Imaging Results None recorded. Procedure Notes None recorded. Medical Equipment None Reported. 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 09/23/2024 [email or web address] Information not available 09/23/2024 Sex: Unknown Functional Status Question Answer Note LastModified by [employer] 1 Details LastModified Time Do you use any illicit or recreational drugs? No [email or web address] Information not available 10/09/2022 What is your level of alcohol consumption? None Information not available 10/09/2022 Mental Status None recorded. Family History Relationship Description Onset Age of this Age Resolved Age Notes LastModified by Organization Details LastModified Time Brother Amyotrophic lateral sclerosis [email or web address] Not available 10/09 08:26:49 Brother Carcinoma of prostate [email or web address] Not available 10/09 08:26:57 Brother Aneurysm of thoracic aorta niece, nephew [email or web address] Not available 10/09/2022 08:27:39 Brother Coronary atherosclero sis [email or web address] Not available 10/09 08:27:54 Father Coronary atherosclero sis [email or web address] Not available 10/09 08:27:54 Medical History No medical history recorded. Immunizations Vaccine Type Date Status Note Provider Nam e and Address Organization Details Recorded Time Influenza, adjuvanted, trivalent, PF 8 completed Mica [facility]und [facility] 08/01/2022 11:42:19 zoster recombinant 8 alexis lund [facility] 08/01/2022 11:42:19 zoster recombinant 8 alexis lund, [facility] 08/01/2022 11:42:19 COVID-19, mRNA, LNP-S, PF, 100 mcg/0.5mL dose or 50 mcg/0.25mL dose 1 completed Mica Charley null, [facility] 08/01/2022 11:42:20 COVID-19, mRNA, LNP-S, PF, 100 mcg/0.5mL dose or 50 mcg/0.25mL dose 1 completed Mica Charley [facility], [facility] 08/01/2022 11:42:20 Pneumococcal conjugate PCV20, polysaccharide QOX523 conjugate, adjuvant, PF 2 completed [facility] 08/01/2022 11:42:20 pneumococcal polysaccharide PPV23 6 completed Mica Charley [facility] 08/01/2022 11:42:20 Pneumococcal conjugate PCV 13 7 completed Mica Charley [facility] 08/01/2022 11:42:20 Influenza, high-dose, trivalent, PF 9 completed [facility] 08/01/2022 11:42:20 Influenza, high-dose, trivalent, PF 7 completed Mica Charley null, [facility] 08/01/2022 11:42:20 Influenza, high-dose, trivalent, PF 6 completed Mica Charley [facility], [facility] 08/01/2022 11:42:20 zoster live 8 completed Not Available [facility] 01/01/2023 08:05:39 zoster live 8 completed Not Available [facility] 01/01/2023 08:05:39 Influenza, split virus, trivalent, preservative 8 completed Not Available [facility] 01/01/2023 08:05:39 Pneumococcal conjugate PCV 13 7 completed Not Available [facility] 01/01/2023 08:05:39 Past Encounters Encounter ID Performer Location Encounter Start Date Encounter Closed Date Diagnosis/Indication Diagnosis SNOMED-CT Code Diagnosis ICD10 Code Diagnosis Note [id number] Nas Collins MD [facility] ([facility]) [address] [place] [phone] 5 09/23/2024 10:19:08 09/23/2024 13:25:19 Minimal change disease 19851446 N04.0 in remission. renal function remains normal. Lower resp iratory tract infection 18744170 J22 Acute constipation 16928 9006 K59.00 [id number] Nas Collins MD [facility] ([facility]) [address] [place] [phone] 09/28/2024 11:21:02 09/28/2024 12:21:40 Alkaline phosphatase above reference range 266269100 R74.8 Generalized edema 986245 008 R60.1 Right uppe r quadrant pain 383195914 R10.11 Productive cough 7472717 5 R05.8 Health Concerns Section Related Observation LastModified by Organization Detai ls LastModified Time None Recorded Concern Status LastModified by Organization Details LastModified Time None Recorded Payers Encounter Date Sequence Insurance Name Policy Number Policy Mendiola Covered Member ID Mendiola Member ID Guarantor Name 09/28/2024 1 [facility] (MEDICARE REPLACEMENT/A DVANTAGE - PPO) [id number] Wolfgang Mora [id number] Wolfgang Mora Notes Date Note Type Note Provider Name and Address Organization Details Recorded Time 09/28/2024 text/html patient f/u visi t from last week his is continuing his 2 abx. states he is still feeling bad. he is getting some liquid stool. he has not had a good bowel movement weight has improved vs are well today and improved Nas Collins MD [address] [place] [address], [phone] 09/28/2024 12:21:39
--- OUTSIDE RECORDS SUMMARY | 2024-09-28 12:28 | XMS_ITS | Encounter Summary ---
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
--- OUTSIDE RECORDS SUMMARY | 2024-09-28 12:28 | XMS_ITS | Encounter Summary ---
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 Production Plant Operator Name Role Phone Unavailable Primary Care Provider Unavailabl e Encounter Details Date Type Department Care Team (Latest Contact Info) Description 09/20/1998 Outpatient Historical [facility] Alonso Mathews NO ADDRESS ON FILE Closed fracture of unspecified part of humerus (Primary Dx) Social History Tobacco Use Types Packs/Day Years Used Date Smoking Tobacco: Never Assessed Sex and Gender Information Value Date Recorded Sex Assigned at Not on file 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
--- OUTSIDE RECORDS SUMMARY | 2024-09-28 12:28 | XMS_ITS | Data Portability ---
Author Organization [facility], [place], [facility] Address [address] [place] [address] Care Team Providers Care Share Holder Name Role Phone NAS WILSON Primary Care Provider Assessment Encounter Date Assessment Date Assessment LastModified by Organization Details LastModified Time 09/23/2024 09/23/2024 he is passing some gas and some stool [email or web address] Not available 09/23/2024 11:26:18 09/28/2024 09/28/2024 wolfgang has a history of [...] ua with 3+ protein and 25 wbc/rbc. [email or web address] Not available 09/28/2024 12:21:24 Plan of Treatment Reminders Order Date Submit Date Provider Last Modified By Organization Details Last Modified Time Details Appointments [facility] 20[facility] 10:30A M Nas Wilson MD Not available Not available Not available [facility] 2024 09:15A Nicolasa Wilson MD Not available Not available Not available Lab SARS CoV 2 RNA, QL probe, nasophary nx 2024 025 [facility] ([facility]), [address] [place], [address], 09/23/2024 12:07:56 CMP, serum or plasma 2024 025 [facility], [address], [place], [address], 09/23/2024 13:53:19 CBC 2024 025 [facility], [address], [address], [place], [address], 09/23/2024 12:48:17 urinalysi s, complete 2024 025 [facility], [address], [address], [place], [address], 09/23/2024 18:01:31 PT/INR 2024 025 [facility] ([facility]), [address] [place], [address], 05/31/2024 10:15:43 unlisted lab - periphera l blood smear review 2024 025 [facility], [address] [place] [address], [address] [place], [address], 06/01/2024 15:06:00 CMP, serum or plasma 2024 025 [facility], [address], [place], [address], 05/31/2024 10:54:46 CBC 2024 025 [facility], [address], [place], [address], 05/31/2024 10:23:46 SARS CoV 2 RNA, QL, nasophary nx 2024 025 [facility] ([facility]), [address] [place], [address], 03/25/2024 10:15:20 Referral None recorded. Procedures None recorded. Surgeries None recorded. Imaging XR, chest, 2 view [address] ([facility]), [address] [place], [address], 09/23/2024 13:25:20 XR, abdomen 2024 025 [facility] ([facility]), [address] [place], [address], 09/24/2024 13:18:26 Medication Orders doxycycli ne hyclate 100 mg capsule 2024 025 [id number], [address] [facility] [address], [address], 09/23/2024 12:55:01 amoxicill in 875 mg-potass ium clavulana te 125 mg tablet 2024 025 [id number], [address] [facility] [address], [address], 09/23/2024 12:55:00 amoxicill in 500 mg capsule 2024 025 [id number], [address] [facility] [address], [address], 06/07/2024 09:56:52 Patient TargetsNo targets recorded. Patient InstructionsNo instructions recorded. Reason for Referral None Reported. Results Created Date Observation Date Name Description Value Unit Range Abnormal Flag Note LastModifiedBy Organization Detail LastModifiedTime 06/01/19 25 05/31/2024 CBC WBC 4.0 x10 4.5-10 .5 low Not Available [facility] [address] [facility] [address], [place], [address], 05/31/2024 10:23:46 06/01/19 25 05/31/2024 CBC RBC 4.38 x10 4.30-5 .90 Not Available [facility] [address] [facility], [place], [address], 05/31/2024 10:23:46 06/01/19 25 05/31/2024 CBC HGB 14.2 g/dL 13.5-1 8.0 Not Available [facility] [address] [facility] 1, [place], [address], 05/31/2024 10:23:46 06/01/19 25 05/31/2024 CBC HCT 44.2 % 35.0-6 0.0 Not Available [facility] [address] [facility], [place], [address], 05/31/2024 10:23:46 06/01/19 25 05/31/2024 CBC MCV 100.9 fL 80.0-9 9.9 high Not Available [facility] [address] [facility] 1, [place], [address], 05/31/2024 10:23:46 06/01/19 25 05/31/2024 CBC MCH 32.5 pg 27.0-3 2.0 high Not Available [facility] [address] [facility] 1, [place], [address], 05/31/2024 10:23:46 06/01/19 25 05/31/2024 CBC MCHC 32.2 g/dL 32.0-3 6.0 Not Available [facility] [address] [facility] 1, [place], [address], 05/31/2024 10:23:46 06/01/19 25 05/31/2024 CBC RDW 14.1 % 11.5-1 4.5 Not Available [facility] [address] [facility] [address], [place], [address], 05/31/2024 10:23:46 06/01/19 25 05/31/2024 CBC plt 120.7 x10 150.0- 451.0 low Not Available [facility] [address] [facility] [address], [place], [address], 05/31/2024 10:23:46 06/01/19 25 05/31/2024 CBC lymphocytes % 22.6 % 20.0-5 0.0 Not Available [facility] [address] [facility] [address], [place], [address], 05/31/2024 10:23:46 06/01/19 25 05/31/2024 CBC granulcytes % 69.7 % 30.0-7 0.0 Not Available [facility] [address] [facility] [address], [place], [address], 05/31/2024 10:23:46 06/01/19 25 05/31/2024 CBC monocytes % 4.9 % 2.0-16 .0 Not Available [facility] [address] [facility] [address], [place], [address], 05/31/2024 10:23:46 06/01/19 25 05/31/2024 CBC granulcytes# 2.8 x10 Not Diann ilable [facility] [address] [facility] [address], [place], [address], 05/31/2024 10:23:46 06/01/19 25 05/31/2024 CBC lymphocytes # 0.9 x10 Not Available [facility] [address] [facility] [address], [place], [address], 05/31/2024 10:23:46 06/01/19 25 05/31/2024 CBC monocytes # 0.2 x10 Not Avai lable [facility] [address] [facility] [address], [place], [address], 05/31/2024 10:23:46 06/01/19 25 05/31/2024 CMP (MALE ) glucose 112.0 mg/dL 60.0-9 9.0 high Not Available [facility] [address] [facility] 1, [place], [address], 05/31/2024 10:54:46 06/01/19 25 05/31/2024 CMP (MALE ) BUN (blood urea nitrogen) 18.0 mg/dL 10.0-2 6.0 Not Available [facility] [address] [facility] [address], [place], [address], 05/31/2024 10:54:46 06/01/19 25 05/31/2024 CMP (MALE ) creatinine (serum) 0.9 mg/dL 0.4-1. 5 Not Available [facility] [address] [facility] [address], [place], [address], 05/31/2024 10:54:46 06/01/19 25 05/31/2024 CMP (MALE ) BUN/creatini ne ratio 20.00 ratio Not Available [facility] [address] [facility] [address], [place], [address], 05/31/2024 10:54:46 06/01/19 25 05/31/2024 CMP (MALE ) eGFR calculated 87.7 Not Available [facility] [address] [facility] [address], [place], [address], 05/31/2024 10:54:46 06/01/19 25 05/31/2024 CMP (MALE ) total protein 6.9 g/dL 6.0-8. 5 Not Available [facility] [address] [facility] [address], [place], [address], 05/31/2024 10:54:46 06/01/19 25 05/31/2024 CMP (MALE ) total bilirubin 0.7 mg/dL 0.2-1. 3 Not Available [facility] [address] [facility] [address], [place], [address], 05/31/2024 10:54:46 06/01/19 25 05/31/2024 CMP (MALE ) albumin 4.2 g/dL 3.5-5. 5 Not Available [facility] [address] [facility] [address], [place], [address], 05/31/2024 10:54:46 06/01/19 25 05/31/2024 CMP (MALE ) globulin 2.7 calc Not Available [facility] [address] [facility] [address], [place], [address], 05/31/2024 10:54:46 06/01/19 25 05/31/2024 CMP (MALE ) AST (SGOT) 55.0 U/L 0.0-46 .0 high Not Available [facility] [address] [facility] [address], [place], [address], 05/31/2024 10:54:46 06/01/19 25 05/31/2024 CMP (MALE ) altv (SGPT) 45.0 U/L 13.0-6 9.0 normal Not Available [facility] [address] [facility] [address], [place], [address], 05/31/2024 10:54:46 06/01/19 25 05/31/2024 CMP (MALE ) A/G ratio 1.6 ratio Not Available [facility] [address] [facility] [address], [place], [address], 05/31/2024 10:54:46 06/01/19 25 05/31/2024 CMP (MALE ) ALP phos 90.0 U/L 30.0-1 40.0 normal Not Available [facility] [address] [facility] [address], [place], [address], 05/31/2024 10:54:46 06/01/19 25 05/31/2024 CMP (MALE ) calcium 9.4 mg/dL 8.4-10 .5 Not Available [facility] [address] [facility] [address], [place], [address], 05/31/2024 10:54:46 06/01/19 25 05/31/2024 CMP (MALE ) sodium 142.0 mmol/ L 136.0- 145.0 Not Available [facility] [address] [facility] [address], [place], [address], 05/31/2024 10:54:46 06/01/19 25 05/31/2024 CMP (MALE ) potassium 4.3 mmol/ L 3.5-5. 1 Not Available [facility] [address] [facility] [address], [place], [address], 05/31/2024 10:54:46 06/01/19 25 05/31/2024 CMP (MALE ) chloride 110.0 mmol/ L 98.0-1 10.0 normal Not Available [facility] [address] [facility] [address], [place], [address], 05/31/2024 10:54:46 06/01/19 25 05/31/2024 CMP (MALE ) C02 25.0 mmol/ L 22.0-3 1.0 Not Available [facility] [address] [facility] [address], [place], [address], 05/31/2024 10:54:46 06/01/19 25 05/31/2024 CMP (MALE ) anion gap 7.0 calc Not Available [facility] [address] [facility] [address], [place], [address], 05/31/2024 10:54:46 06/01/19 25 05/31/2024 CMP (MALE ) osmolality 295.6 calc Not Available [facility] [address], [place], [address], 05/31/2024 10:54:46 03/01/20 24 03/01/2024 CBC WBC 3.9 x10 4.5-10 .5 low Not Available [facility] [address], [place], [address], 03/01/2024 09:42:34 03/01/20 24 03/01/2024 CBC RBC 4.13 x10 4.30-5 .90 low Not Available [facility] [address] [facility] 1, [place], [address], 03/01/2024 09:42:34 03/01/20 24 03/01/2024 CBC HGB 14.0 g/dL 13.5-1 8.0 Not Available [facility] [address] [facility] 1, [place], [address], 03/01/2024 09:42:34 03/01/20 24 03/01/2024 CBC HCT 40.5 % 35.0-6 0.0 Not Available [facility] [address], [place], [address], 03/01/2024 09:42:34 03/01/20 24 03/01/2024 CBC MCV 98.1 fL 80.0-9 9.9 Not Available [facility] [address], [place], [address], 03/01/2024 09:42:34 03/01/20 24 03/01/2024 CBC MCH 33.8 pg 27.0-3 2.0 high Not Available [facility] [address] [facility] 1, [place], [address], 03/01/2024 09:42:34 03/01/20 24 03/01/2024 CBC MCHC 34.4 g/dL 32.0-3 6.0 Not Available [facility] [address] [facility] 1, [place], [address], 03/01/2024 09:42:34 03/01/20 24 03/01/2024 CBC RDW 13.9 % 11.5-1 4.5 Not Available [facility] [address] [facility] 1, [place], [address], 03/01/2024 09:42:34 03/01/20 24 03/01/2024 CBC plt 126.1 x10 150.0- 451.0 low Not Available [facility] [address] [facility] 1, [place], [address], 03/01/2024 09:42:34 03/01/20 24 03/01/2024 CBC lymphocytes % 25.0 % 20.0-5 0.0 Not Available [facility] [address] [facility] 1, [place], [address], 03/01/2024 09:42:34 03/01/20 24 03/01/2024 CBC granulcytes % 60.3 % 30.0-7 0.0 Not Available [facility] [address] [facility] 1, [place], [address], 03/01/2024 09:42:34 03/01/20 24 03/01/2024 CBC monocytes % 10.5 % 2.0-16 .0 Not Available [facility] [address] [facility] 1, [place], [address], 03/01/2024 09:42:34 03/01/20 24 03/01/2024 CBC granulcytes# 2.3 x10 Not Diann ilable [facility] [address] [facility], [place], [address], 03/01/2024 09:42:34 03/01/20 24 03/01/2024 CBC lymphocytes # 1.0 x10 Not Available [facility] [address] [facility], [place], [address], 03/01/2024 09:42:34 03/01/20 24 03/01/2024 CBC monocytes # 0.4 x10 Not Avai lable [facility] [address] [facility] [address], [place], [address], 03/01/2024 09:42:34 03/01/20 24 03/01/2024 CMP (MALE ) glucose 91.0 mg/dL 60.0-9 9.0 Not Available [facility] [address] [facility] [address], [place], [address], 03/01/2024 10:23:02 03/01/20 24 03/01/2024 CMP (MALE ) BUN (blood urea nitrogen) 17.0 mg/dL 10.0-2 6.0 Not Available [facility] [address] [facility] [address], [place], [address], 03/01/2024 10:23:02 03/01/20 24 03/01/2024 CMP (MALE ) creatinine (serum) 1.0 mg/dL 0.4-1. 5 Not Available [facility] [address] [facility], [place], [address], 03/01/2024 10:23:02 03/01/20 24 03/01/2024 CMP (MALE ) BUN/creatini ne ratio 17.00 ratio Not Available [facility] [address] [facility] [address], [place], [address], 03/01/2024 10:23:02 03/01/20 24 03/01/2024 CMP (MALE ) eGFR calculated 77.8 Not Available [facility] [address] [facility] 1, [place], [address], 03/01/2024 10:23:02 03/01/20 24 03/01/2024 CMP (MALE ) total protein 6.8 g/dL 6.0-8. 5 Not Available [facility] [address] [facility], [place], [address], 03/01/2024 10:23:02 03/01/20 24 03/01/2024 CMP (MALE ) total bilirubin 0.8 mg/dL 0.2-1. 3 Not Available [facility] [address] [facility], [place], [address], 03/01/2024 10:23:02 03/01/20 24 03/01/2024 CMP (MALE ) albumin 4.3 g/dL 3.5-5. 5 Not Available [facility] [address] [facility], [place], [address], 03/01/2024 10:23:02 03/01/20 24 03/01/2024 CMP (MALE ) globulin 2.5 calc Not Available [facility] [address] [facility] [address], [place], [address], 03/01/2024 10:23:02 03/01/20 24 03/01/2024 CMP (MALE ) AST (SGOT) 37.0 U/L 0.0-46 .0 Not Available [facility] [address] [facility] 1, [place], [address], 03/01/2024 10:23:02 03/01/20 24 03/01/2024 CMP (MALE ) altv (SGPT) 45.0 U/L 13.0-6 9.0 normal Not Available [facility] [address], [place], [address], 03/01/2024 10:23:02 03/01/20 24 03/01/2024 CMP (MALE ) A/G ratio 1.7 ratio Not Available [facility] [address] [facility] 1, [place], [address], 03/01/2024 10:23:02 03/01/20 24 03/01/2024 CMP (MALE ) ALP phos 94.0 U/L 30.0-1 40.0 normal Not Available [facility] [address] [facility] 1, [place], [address], 03/01/2024 10:23:02 03/01/20 24 03/01/2024 CMP (MALE ) calcium 9.7 mg/dL 8.4-10 .5 Not Available [facility] [address] [facility], [place], [address], 03/01/2024 10:23:02 03/01/20 24 03/01/2024 CMP (MALE ) sodium 140.0 mmol/ L 136.0- 145.0 Not Available [facility] [address] [facility] 1, [place], [address], 03/01/2024 10:23:02 03/01/20 24 03/01/2024 CMP (MALE ) potassium 4.3 mmol/ L 3.5-5. 1 Not Available [facility] [address] [facility] 1, [place], [address], 03/01/2024 10:23:02 03/01/20 24 03/01/2024 CMP (MALE ) chloride 108.0 mmol/ L 98.0-1 10.0 normal Not Available [facility] [address] [facility] 1, [place], [address], 03/01/2024 10:23:02 03/01/20 24 03/01/2024 CMP (MALE ) C02 26.0 mmol/ L 22.0-3 1.0 Not Available [facility] [address] [facility] [address], [place], [address], 03/01/2024 10:23:02 03/01/20 24 03/01/2024 CMP (MALE ) anion gap 6.0 calc Not Available [facility] [address], [place], [address], 03/01/2024 10:23:02 03/01/20 24 03/01/2024 CMP (MALE ) osmolality 290.2 calc Not Available [facility] [address] [facility] [address], [place], [address], 03/01/2024 10:23:02 03/01/20 24 03/02/2024 VITAM IN D,25- OH,TO NIMA,I A vitamin D,25-oh,tota l,ia 21 NG/mL 30-100 low Vitam in D Statu s 25-OH Vitam in D: Defic iency : <20 ng/mL Insuf ficie ncy: 20 - 29 ng/mL Optim al: > or = 30 ng/mL For 25-OH Vitam in D testi ng on patie nts on D2-savage pplem entat ion and patie nts for whom quant itati on of D2 and D3 fract ions is requi red, the [employer] e[employer](TM ) 25-OH VIT D, (D2,D 3), LC/MS /MS is recom patsy d: order code 26579 (sage ents >2yrs ). See Note 1 Note 1 For addit ional infor katerina ladd refer to http: //kiel Yeh gnost ics.c om/fa q/FAQ 199 (This link is being provi ded for infor fede kennedy/ cecilio melendrez purpo ses only. ) Not Available [employer] [facility] [address] [place], [address], 03/02/2024 05:48:47 03/25/19 25 03/25/2024 SARS CoV 2 RNA, QL, nasop haryn x COVID negati ve Not Available [facility] ([facility]) [address] [place], [address], 03/25/2024 10:13:11 06/01/19 25 06/01/2024 PERIP HERAL BLOOD SMEAR REVIE W peripheral blood smear review Revie w of perip heral smear confi ana lilia autom ated resul ts. Red cell morph ology appea rs unrem arkab le Few large plate lets. Revie w of the perip heral smear revea ls decre ased numbe rs of plate lets. Not Available [facility] [address] [place], [address], 06/01/2024 15:06:00 06/01/19 25 05/31/2024 PT/IN R Protime 12.1 Not Available [facility] ([facility]) [address] [place], [address], 05/31/2024 10:01:00 06/01/19 25 05/31/2024 PT/IN R INR 1.0 Not Available [facility] ([facility]) [address] [place], [address], 05/31/2024 10:01:00 09/24/19 25 09/23/2024 CBC WBC 17.0 x10 4.5-10 .5 high Not Available [facility] [address] [facility] 1, [place], [address], 09/23/2024 12:48:16 09/24/19 25 09/23/2024 CBC RBC 4.66 x10 4.30-5 .90 Not Available [facility] [address] [facility] 1, [place], [address], 09/23/2024 12:48:16 09/24/19 25 09/23/2024 CBC HGB 15.5 g/dL 13.5-1 8.0 Not Available [facility] [address] [facility], [place], [address], 09/23/2024 12:48:16 09/24/1909/23/2024 CBC HCT 47.4 % 35.0-6 0.0 Not Available [facility] [address] [facility], [place], [address], 09/23/2024 12:48:16 09/24/1909/23/2024 CBC MCV 101.7 fL 80.0-9 9.9 high Not Available [facility] [address] [facility], [place], [address], 09/23/2024 12:48:16 09/24/1909/23/2024 CBC MCH 33.2 pg 27.0-3 2.0 high Not Available [facility] [address] [facility], [place], [address], 09/23/2024 12:48:16 09/24/1909/23/2024 CBC MCHC 32.7 g/dL 32.0-3 6.0 Not Available [facility] [address] [facility] 1, [place], [address], 09/23/2024 12:48:16 09/24/1909/23/2024 CBC RDW 13.7 % 11.5-1 4.5 Not Available [facility] [address] [facility] 1, [place], [address], 09/23/2024 12:48:16 09/24/1909/23/2024 CBC plt 240.9 x10 150.0- 451.0 Not Available [facility] [address], [place], [address], 09/23/2024 12:48:16 09/24/19 25 09/23/2024 CBC lymphocytes % 4.1 % 20.0-5 0.0 low Not Available [facility] [address] [facility] [address], [place], [address], 09/23/2024 12:48:16 09/24/19 25 09/23/2024 CBC granulcytes % 88.0 % 30.0-7 0.0 high Not Available [facility] [address] [facility] [address], [place], [address], 09/23/2024 12:48:16 09/24/1909/23/2024 CBC monocytes % 7.3 % 2.0-16 .0 Not Available [facility] [address] [address], [place], [address], 09/23/2024 12:48:16 09/24/19 25 09/23/2024 CBC granulcytes# 14.9 x10 Not Diann ilable [facility] [address] [facility] [address], [place], [address], 09/23/2024 12:48:16 09/24/1909/23/2024 CBC lymphocytes # 0.7 x10 Not Available [facility] [address] [address], [place], [address], 09/23/2024 12:48:16 09/24/1909/23/2024 CBC monocytes # 1.2 x10 Not Avai lable [facility] [address] [address], [place], [address], 09/23/2024 12:48:16 09/24/19 25 09/23/2024 CMP (MALE ) glucose 121.0 mg/dL 60.0-9 9.0 high Not Available [facility] [address] [facility], [place], [address], 09/23/2024 13:53:19 09/24/19 25 09/23/2024 CMP (MALE ) BUN (blood urea nitrogen) 63.0 mg/dL 10.0-2 6.0 high Not Available [facility] [address] [facility], [place], [address], 09/23/2024 13:53:19 09/24/19 25 09/23/2024 CMP (MALE ) creatinine (serum) 1.9 mg/dL 0.4-1. 5 high Not Available [facility] [address] [facility], [place], [address], 09/23/2024 13:53:19 09/24/19 25 09/23/2024 CMP (MALE ) BUN/creatini ne ratio 33.16 ratio Not Available [facility] [address] [facility], [place], [address], 09/23/2024 13:53:19 09/24/19 25 09/23/2024 CMP (MALE ) eGFR calculated 37.0 Not Available [facility] [address] [address], [place], [address], 09/23/2024 13:53:19 09/24/19 25 09/23/2024 CMP (MALE ) total protein 5.0 g/dL 6.0-8. 5 low Not Available [facility] [address] [facility], [place], [address], 09/23/2024 13:53:19 09/24/19 25 09/23/2024 CMP (MALE ) total bilirubin 0.4 mg/dL 0.2-1. 3 Not Available [facility] [address] [facility] [address] [address], [place], [address], 09/23/2024 13:53:19 09/24/19 25 09/23/2024 CMP (MALE ) albumin 2.2 g/dL 3.5-5. 5 low Not Available [facility] [address] [facility] [address], [place], [address], 09/23/2024 13:53:19 09/24/19 25 09/23/2024 CMP (MALE ) globulin 2.8 calc Not Available [facility] [address] [facility] [address], [place], [address], 09/23/2024 13:53:19 09/24/19 25 09/23/2024 CMP (MALE ) AST (SGOT) 58.0 U/L 0.0-46 .0 high Not Available [facility] [address] [address], [place], [address], 09/23/2024 13:53:19 09/24/19 25 09/23/2024 CMP (MALE ) altv (SGPT) 42.0 U/L 13.0-6 9.0 normal Not Available [facility] [address] [facility] [address], [place], [address], 09/23/2024 13:53:19 09/24/19 25 09/23/2024 CMP (MALE ) A/G ratio 0.8 ratio Not Available [facility] [address] [facility] [address], [place], [address], 09/23/2024 13:53:19 09/24/19 25 09/23/2024 CMP (MALE ) ALP phos 210.0 U/L 30.0-1 40.0 abnormal Not Available [facility] [address] [facility] [address], [place], [address], 09/23/2024 13:53:19 09/24/19 25 09/23/2024 CMP (MALE ) calcium 8.3 mg/dL 8.4-10 .5 low Not Available [facility] [address] [facility], [place], [address], 09/23/2024 13:53:19 09/24/19 25 09/23/2024 CMP (MALE ) sodium 129.0 mmol/ L 136.0- 145.0 low Not Available [facility] [address] [facility] [address], [place], [address], 09/23/2024 13:53:19 09/24/19 25 09/23/2024 CMP (MALE ) potassium 4.9 mmol/ L 3.5-5. 1 Not Available [facility] [address] [facility] [address], [place], [address], 09/23/2024 13:53:19 09/24/19 25 09/23/2024 CMP (MALE ) chloride 101.0 mmol/ L 98.0-1 10.0 normal Not Available [facility] [address] [facility] [address], [place], [address], 09/23/2024 13:53:19 09/24/19 25 09/23/2024 CMP (MALE ) C02 25.0 mmol/ L 22.0-3 1.0 Not Available [facility] [address] [facility] [address], [place], [address], 09/23/2024 13:53:19 09/24/1909/23/2024 CMP (MALE ) anion gap 3.0 calc Not Available [facility] [address] [facility] [address], [place], [address], 09/23/2024 13:53:19 09/24/1909/23/2024 CMP (MALE ) osmolality 285.1 calc Not Available [facility] [address] [facility] [address], [place], [address], 09/23/2024 13:53:19 09/24/19 25 09/23/2024 URINA LYSIS WITH MICRO color DARK YELLOW Not Available [facility] [address], [place], [address], 09/23/2024 18:01:31 09/24/19 25 09/23/2024 URINA LYSIS WITH MICRO clarity CLEAR Not Available [facility] [address], [place], [address], 09/23/2024 18:01:31 09/24/19 25 09/23/2024 URINA LYSIS WITH MICRO glu NEGATI VE Not Available [facility] [address], [place], [address], 09/23/2024 18:01:31 09/24/19 25 09/23/2024 URINA LYSIS WITH MICRO bili 1+ Not Available [facility] [address], [place], [address], 09/23/2024 18:01:31 09/24/19 25 09/23/2024 URINA LYSIS WITH MICRO ket NEGATI VE Not Available [facility] [address], [place], [address], 09/23/2024 18:01:31 09/24/1909/23/2024 URINA LYSIS WITH MICRO S.g 1.030 1.005- 1.025 high Not Available [facility] [address], [place], [address], 09/23/2024 18:01:31 09/24/19 25 09/23/2024 URINA LYSIS WITH MICRO pH 5.5 5.0-7. 0 Not Available [facility] [address], [place], [address], 09/23/2024 18:01:31 09/24/1909/23/2024 URINA LYSIS WITH MICRO pro 3+ Not Available [facility] [address], [place], [address], 09/23/2024 18:01:31 09/24/19 25 09/23/2024 URINA LYSIS WITH MICRO uro 0.2 E.U./D L Not Available [facility] [address], [place], [address], 09/23/2024 18:01:31 09/24/19 25 09/23/2024 URINA LYSIS WITH MICRO nit NEGATI VE Not Available [facility] [address], [place], [address], 09/23/2024 18:01:31 09/24/19 25 09/23/2024 URINA LYSIS WITH MICRO blo 2+ Not Available [facility] [address], [place], [address], 09/23/2024 18:01:31 09/24/19 25 09/23/2024 URINA LYSIS WITH MICRO sue NEGATI VE Not Available [facility] [address], [place], [address], 09/23/2024 18:01:31 09/24/1909/23/2024 URINA LYSIS WITH MICRO WBC 25-30 Not Available [facility] [address], [place], [address], 09/23/2024 18:01:31 09/24/19 25 09/23/2024 URINA LYSIS WITH MICRO RBC 15-20 Not Available [facility] [address], [place], [address], 09/23/2024 18:01:31 09/24/19 25 09/23/2024 URINA LYSIS WITH MICRO epi cells 0 Not Available [facility] [address] [facility] [address], [place], [address], 09/23/2024 18:01:31 09/24/1909/23/2024 URINA LYSIS WITH MICRO bacteria 2+ AMORPH OUS Not Available [facility] [address] [facility] [address], [place], [address], 09/23/2024 18:01:31 09/24/1909/23/2024 URINA LYSIS WITH MICRO other 8-10 HYALIN E CAST Not Available [facility] [address] [facility] [address], [place], [address], 09/23/2024 18:01:31 09/28/19 25 09/27/2024 SARS CoV 2 RNA, QL probe , nasop haryn x Covid negati ve Not Available [facility] ([facility]) [address] [place], [address], 09/23/2024 12:06:33 06/08/19 25 02/02/2021 colon oscop y proce dure (PROC ) No observ ation record ed. [email or web address] Not Available 06/08 09:21:38 09/24/19 25 09/23/2024 XR, chest , 2 view No observ ation record ed. [email or web address] [facility] ([facility]) [address] [place], [address], 09/27/2024 13:09:36 09/25/19 25 09/23/2024 XR, chest , 2 view No observ ation record ed. [email or web address] [facility] [address] [place], [address], 09/27/2024 13:19:46 09/25/19 25 09/23/2024 XR, abdom en No observ ation record ed. [email or web address] [facility] [address] [place], [address], 09/27/2024 13:09:37 Result Notes None recorded. 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 5 15:50:49 Closed fracture lumbar vertebra , wedge 314407351 Active 2022 Mica Charley null, [facility] 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 5 15:50:49 Disturba nce of consciou sness 7086026 Completed 202306/14/2024 Mica Charley [facility] 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 5 15:50:49 Tonic epilepti c seizure 369203914 Active 2024 Mica Charley [facility], [facility] 5 15:50:49 Constipa tion 33431936 Active 2024 Mica Charley [facility], [facility] 5 15:50:49 Family history of malignan t neoplasm of prostate 842316469 Completed 202406/14/2024 Mica Charley [facility] 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 Procedures Surgical History Date Name Laterality Status Provider Name and Address Organization Details Recorded Time 3 kidney biopsy [facility] 15:51:39 1 colonoscopy completed [facility]/07[facility]2024 09:02:54 Cataract Surgery completed Vikki Ceja [facility] [place] 09/28/2024 11:32:45 Imaging Results None recorded. Procedure Notes None recorded. Medical Equipment None Reported. 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 ; Promo rod; Pernell motley ce: *; Reaso n: Drug aller gy; [...] 12/16 completed Recorded 04/08/19 1:57PM by Nas Wilson MD, Office Visit; Refill Quantity : 0; [...] mass index (BMI) Body weight Body temperature Heart rate Oxygen saturation Oxygen saturation in Arterial blood by Pulse oximetry Systolic And Diastolic Provider Name and Address Organization Details Last Updated DateTime 5 171.45 cm 28.7 kg/m2 81766.1 8 g 98.5 [degF] 85 /min 90 % 90 % 116/58 mm[Hg] Miac Whitehead [facility] 5 09:51:43 Date Recorded Body height Body mass index (BMI) Body weight Body temperature Heart rate Oxygen saturation Oxygen saturation in Arterial blood by Pulse oximetry Systolic And Diastolic Provider Name and Address Organization Details Last Updated DateTime 5 171.45 cm 29.2 kg/m2 10723.9 6 g 97.4 [degF] 68 /min 97 % 97 % 138/82 mm[Hg] Mica Whitehead [facility] 5 09:58:56 Date Recorded Body height Body mass index (BMI) Body weight Body temperature Oxygen saturation Oxygen saturation in Arterial blood by Pulse oximetry Heart rate Respiratory rate Systolic And Diastolic Provider Name and Address Organization Details Last Updated DateTime 171.45 cm 29.5 kg/m2 02488.1 4 g 96.9 [degF] 94 % 94 % 96 /min 18 /min 126/80 mm[Hg] TYLER MONTANEZ [facility] 10:47:15 Date Recorded Body height Body mass index (BMI) Body weight Body temperature Oxygen saturation Oxygen saturation in Arterial blood by Pulse oximetry Heart rate Respiratory rate Systolic And Diastolic Provider Name and Address Organization Details Last Updated DateTime 171.45 cm 30.6 kg/m2 98939.2 9 g 97.3 [degF] 95 % 95 % 93 /min 20 /min 130/82 mm[Hg] Vikki Ceja [facility] 11:28:07 Social History Question Answer Notes LastModified by Xanitos Details LastModified Time Tobacco Smoking Status [facility] 10/09/2022 08:28:10 What Was The Date Of Your Most Recent Tobacco Screening? 09/23/2024 [email or web address] Information not available 09/23/2024 Sex: Unknown Functional Status Question Answer Note LastModified by Xanitos Details LastModified Time Do you use any illicit or recreational drugs? No [email or web address] Information not available 10/09/2022 What is your level of alcohol consumption? None [email or web address] Information not available 10/09/2022 Mental Status None recorded. Family History Relationship Description Onset Age of this Age Resolved Age Notes LastModified by Organization Details LastModified Time Brother Amyotrophic lateral sclerosis [email or web address] Not available 10/09 08:26:49 Brother Carcinoma of prostate [email or web address] Not available 10/09 08:26:57 Brother Aneurysm of thoracic aorta niece, nephew shimon Not available 10/09/2022 08:27:39 Brother Coronary atherosclero sis [email or web address] Not available 10/09 08:27:54 Father Coronary atherosclero sis [email or web address] Not available 10/09 08:27:54 Medical History No medical history recorded. Immunizations Vaccine Type Date Status Note Provider Nam e and Address Organization Details Recorded Time Influenza, adjuvanted, trivalent, PF 8 completed Mica Charley null, [facility] 08/01/2022 11:42:19 zoster recombinant 8 completed Mica Charley null, [facility] 08/01/2022 11:42:19 zoster recombinant 8 completed Mica Charley null, [facility] 08/01/2022 11:42:19 COVID-19, mRNA, LNP-S, PF, 100 mcg/0.5mL dose or 50 mcg/0.25mL dose 1 completed Mica Charley null, [facility] 08/01/2022 11:42:20 COVID-19, mRNA, LNP-S, PF, 100 mcg/0.5mL dose or 50 mcg/0.25mL dose 1 completed Mica Doyleoch null, [facility] 08/01/2022 11:42:20 Pneumococcal conjugate PCV20, polysaccharide AOZ126 conjugate, adjuvant, PF 2 completed Mica Charley null, [facility] 08/01/2022 11:42:20 pneumococcal polysaccharide PPV23 6 completed Micaadan Doyleoch null, [facility] 08/01/2022 11:42:20 Pneumococcal conjugate PCV 13 7 completed Mica Doyleoch null, [facility] 08/01/2022 11:42:20 Influenza, high-dose, trivalent, PF 9 completed Mica Charley null, [facility] 08/01/2022 11:42:20 Influenza, high-dose, trivalent, PF 7 completed Mica Charley null, [facility] 08/01/2022 11:42:20 Influenza, high-dose, trivalent, PF 6 completed Mica Charley null, [facility] 08/01/2022 11:42:20 zoster live 8 completed Not Available [facility] 01/01/2023 08:05:39 zoster live 8 completed Not Available [facility] 01/01/2023 08:05:39 Influenza, split virus, trivalent, preservative 8 completed Not Available [facility] 01/01/2023 08:05:39 Pneumococcal conjugate PCV 13 7 completed Not Available [facility] 01/01/2023 08:05:39 Past Encounters Encounter ID Performer Location Encounter Start Date Encounter Closed Date Diagnosis/Indication Diagnosis SNOMED-CT Code Diagnosis ICD10 Code Diagnosis Note [id number] Nas Wilson MD [facility] ([facility]) [address] [place] [id number] 5 06/21/2022 09:26:45 06/29/2022 23:22:40 Minimal change disease 43614459 N04.0 dr. franco [facility] [id number] Nas Wilson MD [facility] ([facility]) [address] [place] [id number] 5 08/01/2022 11:33:53 08/01/2022 15:58:47 Cirrhosis of liver 45538707 K74.60 lfts remain elevated i really cannot explain why. recent bloodwork from 07/30/2022 Minimal ch niurka disease 39948851 N04.0 dr. franco [facility] Muscle weakness 26594267 M62.81 [id number] Nas Wilson MD [facility] ([facility]) [address] [place], [place] [phone] 5 10/09/2022 08:09:31 10/09/2022 09:26:20 Right side sciatica 4284470404 32737 M54.31 Right foot drop 17554256 01 03350 M21.678 [id number] Nas Wilson MD [facility] (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 recent bloodwork from 07/30/2022 Minimal ch niurka disease 15642069 N04.0 dr. franco [facility]ph[facility] has f/u in march. [id number] Nas Wilson MD [facility] ([facility]) [address] [place], [place] [address] 01/01/2023 08:03:35 01/01/2023 11:13:44 Osteoporosis 40666447 M81.0 [id number] Nas Wilson MD [facility] ([facility]) [address] [place] [id number] 5 06/19/2023 08:36:22 06/19/2023 10:10:39 Cirrhosis of liver 32510884 K74.60 lfts remain elevated i really cannot explain why. recent bloodwork from 07/30/2022 Thrombocyt openic disorder 437552736 D69.6 Anemia 102685613 D64.9 Disturbanc e of consciousness 7584075 R41.82 Minimal ch niurka disease 50748773 N04.0 in remission. Vitamin D deficiency 347 04443 E55.9 Absence seizure 75585340 G40.A09 Vascular dementia 443016 004 F01.50 [id number] Nas Wilson MD [facility] ([facility]) [address] [place] [id number] 5 12/19/2023 08:50:04 12/19/2023 10:10:42 Cirrhosis of liver 89681857 K74.60 Disturbanc e of consciousness 5596049 R41.82 suspect metabolic encephalop athy vs petit mal seizure.he has a post ictal phase for 5-10 minutes.ea ch time he thinks he is playing pool during the spell. they seem to start like a typical petit mal event. [id number] Nas Wilson MD [facility] ([facility]) [address] [place] [address] [id number] 5 01/08/2024 08:49:42 01/08/2024 12:04:26 Minimal change disease 68677622 N04.0 in remission. Disturbanc e of consciousness 5970551 R41.82 suspect metabolic encephalop athy vs petit mal seizure.he has a post ictal phase for 5-10 minutes.ea ch time he thinks he is playing pool during the spell. they seem to start like a typical petit mal event. [id number] Nas Wilson MD [facility] ([facility]) [address] [place] [address] [id number] 5 03/01/2024 08:58:50 03/02/2024 10:06:35 Cirrhosis of liver 06262128 K74.60 Vitamin D deficiency 347 75282 E55.9 [id number] Nas Wilson MD [facility] ([facility]) [address] [place] [id number] 5 03/08/2024 10:49:54 03/08/2024 13:22:56 Thrombocytopenic disorder 263826016 D69.6 Cirrhosis of liver 07571 K74.60 Minimal ch niurka disease 02674883 N04.0 in remission. renal function remains normal. Petit mal status, non-refractory 8529796876 36551 G40.401 Vitamin D deficiency 347 49449 E55.9 [id number] Nas Wilson MD [facility] ([facility]) [address] [place] [id number] 5 03/25/2024 09:24:00 03/25/2024 11:49:38 Cirrhosis of liver 43178738 K74.60 Vascular d ementia without behavioral disturbance 4020920988 9094313 F01.50 Tonic epil eptic seizure 343236050 G40.401 Acute otitis media 62656 03 H66.92 Acute uppe r respiratory infection 44407426 J06.9 [id number] Nas Wilson MD [facility] ([facility]) [address] [place] [id number] 5 05/31/2024 09:59:46 05/31/2024 13:00:08 Cirrhosis of liver 07854393 K74.60 Thrombocyt openic disorder 619201177 D69.6 [id number] Nas Wilson MD [facility] ([facility]) [address] [place] [address] [id number] 5 06/07/2024 09:48:17 06/07/2024 15:48:08 Non-alcoholic fatty liver 281784116 K76.0 mildly low plts. inr is normalno elevated bilirubinw e discussed low fat low sugar diet. Thrombocyt openic disorder 371350270 D69.6 due to liver disease Cirrhosis of liver 92390 007 K74.60 Minimal ch niurka disease 18763947 N04.0 in remission. renal function remains normal. Tonic epil eptic seizure 521259042 G40.401 seizure free [facility] of malignant neoplasm of prostate 796509300 Z80.42 [id number] Nas Wilson MD [facility] ([facility]) [address] [place] [address] [id number] 5 09/23/2024 10:19:08 09/23/2024 13:25:19 Minimal change disease 41257251 N04.0 in remission. renal function remains normal. Lower resp iratory tract infection 43676636 J22 Acute constipation 80768 9006 K59.00 [id number] Nas Wilson MD [facility] ([facility]) [address] [place] [address] [id number] 5 09/28/2024 11:21:02 09/28/2024 12:21:40 Alkaline phosphatase above reference range 588343814 R74.8 Generalized edema 478305 008 R60.1 Right uppe r quadrant pain 096069840 R10.11 Productive cough 9032500 5 R05.8 Health Concerns Section Related Observation LastModified by Organization Detai ls LastModified Time None Recorded Concern Status LastModified by Organization Details LastModified Time None Recorded Advance Directives Directive None Recorded Payers Insurance Date Sequence Insurance Name Policy Number Policy Mendiola Covered Member ID Mendiola Member ID Guarantor Name 09/28/2024 1 [facility] (MEDICARE REPLACEMENT/A DVANTAGE - PPO) [id number] Wolfgang Mora [id number] Wolfgang Mora 03/25/2024 1 [place] [id number] Wolfgang Mora [id number] Wolfgang Mora 03/25/2024 1 [place] - [place]) [id number] Wolfgang Mora [id number] Wolfgang Mora Notes Date Note Type Note Provider Name and Address Organization Details Recorded Time 03/25/2024 text/html Upper Respirator y SymptomsReported bypatient.Location:[address]; throat; nasal Quality:productive cough;congested Duration:symptoms lasting less than 2 weeks (4 days) Associated Symptoms:no shortness of breath; no change in number of pillows needed to sleep at night; no fever; no vomiting; no nausea;green sputum;sore throat; constipationNotes:Pt had a fall 2 days ago. He bruised his right hip and right arm. He states he went down pretty soft. He is feeling more steady today. no feverhe has not been short of breath Nas Wilson MD [address] [place] [address], [phone], [facility] 03/25/2024 10:14:48 06/07/2024 text/html Generic HPI TemplateReported bypatient.Context:Pt is here for a follow up. Pt states he has not had any trouble taking the Keppra, and there are no known seizures since starting this medication. Wolfgang states he hasn't felt like he has had any of these spells recently. His brother is in agreement with this.Notes:Pt is here today to go over lab results. last seizure was in October. Nas Wilson MD [address] [place] [address], [phone], [facility] 06/07/2024 10:29:41 09/23/2024 text/html Upper Respirator y SymptomsReported bypatient.Location:[facility] Quality:productive cough Severity:moderate Onset/Timing:gradual Context:no sick contacts; [...] really think he had a fever. Nas Wilson MD [address] [place] [address], [phone], [facility] 09/23/2024 12:56:00 09/28/2024 text/html patient f/u visi t from last week his is continuing his 2 abx. states he is still feeling bad. he is getting some liquid stool. he has not had a good bowel movement weight has improved vs are well today and improved Nas Wilson MD [address] [place] [address], [phone], [facility] 09/28/2024 12:21:39
--- OUTSIDE RECORDS SUMMARY | 2024-09-28 12:28 | XMS_ITS | Clinical Summary ---
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
--- OUTSIDE RECORDS SUMMARY | 2024-09-28 12:28 | XMS_ITS | Patient Health Record ---
Author Organization [facility] Address [address] [place] [address] Care Team Providers Care Primary Montessori Teacher Name Role Phone Steve CALDERON, Gregory Primary Care Provider Unavailabl e Reason For Referral No Information Immunizations Vaccine Route Administration Date Status Comme nts Influenza (whole), CPT 29694 Inactive Unknown 01/05/2018 Administered Social History Social History Additional Details Category Social Info Options Details zzMigrated Social History Migrated Social History Smoking Status:Never smoked tobacco (finding) Plan Of Treatment No Information Insurance Providers Payer Name Payer Address Payer Phone Subscriber Number Group Number Insured Name Patient Relationship to Insured Coverage Start Date Coverage End Date [place] [address] [address] [place] [address] [id number] Morgan Zurdo Self - patient is the insured [employer] [address] [place] [address] [id number] Zurdo Mora Self - patient is the insured
--- OUTSIDE RECORDS SUMMARY | 2024-09-28 12:28 | XMS_ITS | Clinical Summary ---
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 Gender Identity Not on file Sexual Orientation Not on file Last Filed Vital Signs Vital Sign Reading Time Taken Comments Blood Pressure 146/84 10/25/2020 10:44 AM CDT Pulse 71 10/25/2020 10:44 AM CDT Temperature - - Respiratory Rate - - Oxygen Saturation - - Inhaled Oxygen Concentration - - Weight 78 kg (172 lb) 10/25/2020 10:44 AM CDT Height 175.3 cm (5' 9 ) 10/25/2020 10:44 AM CDT Body Mass Index 25.4 10/25/2020 10:44 AM CDT Plan of Treatment Health Maintenance Due Date Last Done Comments DTAP/TDAP/TD VACCINES (1 - Tdap) 1969 COLORECTAL SCREENING 1995 Colorectal Cancer Screening 1995 FIT-DNA Q 3 years 1995 FIT/FOBT Q 1 year 1995 Flex Sig/CT Colonography Q 5 years 1995 PNEUMOCOCCAL VACCINE 50+ YEARS (1 of 1 - PCV) 04/13/19 01 ZOSTER VACCINE (1 of 2) 2000 INFLUENZA VACCINE (#1) 2024 RSV VACCINE (60+ or ) (1 - 1-dose 75+ series) 2025 Insurance Care Teams Ladies Underwear Operator Relationship Specialty Start Date End Date Gregory Wilson MD [address] [id number] PCP - General Family Practice 11/16/20
[2024-09-28 12:52] LABS: Alanine Aminotransferase 40 U/L (0-41); Albumin Level 1.6 g/dL (3.5-5.2); Alkaline Phosphatase 267 U/L (40-130); Anion Gap 18.0 (5-19); Aspartate Amino Transferase 61 U/L (0-40); Calcium 8.0 mg/dL (8.5-10.5); Carbon Dioxide 19 mmol/L (22-29); Chloride 93 mmol/L (98-107); Creatinine Clr Calc Pharmacy 32.6435; Globulin 3.7 g/dL (1.3-4.6); Glucose 100 mg/dL (65-115); Magnesium 2.6 mg/dL (1.7-2.3); NT Pro B Type Natriuretic Pept 2299 pg/mL (0-125); Osmolality Calculated 288 mOsm/kg (285-295); Potassium 5.0 mmol/L (3.5-5.1); Sodium 125 mmol/L (136-145); Total Protein 5.3 g/dL (6.6-8.7)
[2024-09-28 12:56] LABS: Blood Urea Nitrogen 92 mg/dL (8-23)
[2024-09-28] MEDS: SODIUM CHLORIDE 0.9% 2694.33 ML IV (13:14)
--- NOTE | 2024-09-28 13:18 | ECG_ITS ---
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 Measurements Intervals [place] Rate: 89 P: 83 IL: 220 QRS: 66 QRSD: 90 T: 67 QT: 335 QTc: 409 Interpretive Statements SINUS RHYTHM WITH FIRST DEGREE AV BLOCK Compared to ECG 06/07/2022 16:21:52 First degree AV block now present Ventricular premature complex(es) no longer present Myocardial infarct finding no longer present Electronically Signed On 09-28-2024 14:57:41 CDT by Beka Mukherjee M.D. [id number]
[2024-09-28 13:23] LABS: Glucose Urine UA Negative (Normal); Nitrate Urine Negative (Negative); Specific Gravity, Urine 1.017 (1.005-1.030)
[2024-09-28 13:25] LABS: Add Urine Microscopic? YES; Universal Test for UA Present (0)
[2024-09-28 13:39] LABS: UA Manual Slide Review YES
[2024-09-28 13:43] LABS: Lactic Sepsis W/Reflex 1.1 mmol/L (0.5-2.2)
--- NOTE | 2024-09-28 14:54 | PM.CONSULT ---
Providers/Reason For Consult Consulting Physician/Specialty*: sho garcía md / telenephrology Reason for Consult*: JAIR, nephrotic syndrome Requesting Physician: Dr Elio Elliott Attending Physician: Zander Elliott MD Primary Care Provider: Gregory Wilson MD History of Present Illness History of Present Illness Zurdo Mora is a 74 year old male history of seizure disorder. Patient history of acute kidney injury with nephrotic syndrome in April 2022. At this time he with started on steroids after having negative serologies. The patient was recommended to see Dr. Evans at [facility]. The patient had a renal biopsy which I am trying to get copies of. I was able to speak Dr. Wilson who said it was either negative or minimal-change disease the patient improved with prednisone. The patient's been doing well and then over the last few days the patient is gone severe edema weakness lethargy and weight gain. The patient once again has proteinuria and hematuria on his urinalysis. The patient was started antibiotics on Friday by Dr. Wilson his PMD. On Friday, September 24, 2024 his creatinine was 1.9 mg/dL and today's creatinine is up to 2.2 mg/dL with a BUN of 92. The patient also has a sodium of 125 his albumin is down to 1.6 mg/dL. In 2022 all serologies were negative. Renal was called to see the patient for recurrent nephrotic syndrome, hyponatremia, acute kidney injury. Review of Systems Narrative: Weak swollen lethargic edematous cough. At baseline patient has difficulty remembering things. His brother helps take care of him. Patient has foamy urine. Denies diarrhea. Denies NSAIDs Medications/Allergies Home Medications ?Medication ?Instructions ?Recorded ?Confirmed ?Last Taken ?Type atorvastatin 40 mg tablet 20 mg PO DAILY 06/07/22 02/26/24 06/07/22 History ergocalciferol (vitamin D2) 1,250 1.25 mcg PO DAILY 06/07/22 02/26/24 06/07/22 History mcg (50,000 unit) capsule furosemide 40 mg tablet 40 mg PO BID 06/07/22 02/26/24 06/07/22 History lactulose 10 gram/15 mL oral 45 ml PO DAILY PRN Constipation 06/07/22 02/26/24 Unknown History solution nystatin 100,000 unit/mL oral 5 ml PO TID 06/07/22 02/26/24 06/07/22 History suspension prednisone 20 mg tablet 60 mg PO DAILY 06/07/22 02/26/24 Unknown History sulfamethoxazole 800 1 tab PO DAILY 06/07/22 02/26/24 06/07/22 History mg-trimethoprim 160 mg tablet lidocaine 5 % topical patch 1 patch topical DAILY #15 ea 10/06/22 02/26/24 Unknown Rx methocarbamol 750 mg tablet 750 mg PO TID PRN sciatica #15 tabs 10/06/22 02/26/24 Unknown Rx methylprednisolone 4 mg tablets in See Rx Instructions PO .COMPLEX 10/06/22 02/26/24 Unknown Rx a dose pack #21 ea brimonidine 0.2 % eye drops drp ophthalmic (eye) 02/26/24 02/26/24 Unknown History dorzolamide 22.3 mg-timolol 6.8 ophthalmic (eye) 02/26/24 02/26/24 Unknown History mg/mL eye drops levetiracetam 500 mg tablet mg PO 02/26/24 02/26/24 Unknown History Allergies Allergy/AdvReac Type Severity Reaction Status Date / Time No Known Allergies Allergy Verified 02/26/24 15:40 PFSH Acute PFSH: Medical History (Updated 09/28/24 @ 14:05 by Haris Guo DO) History of CVA (cerebrovascular accident) Lacunar infarcts on MRI Ureteral calculus S/P extracorporeal shock wave therapy Surgical History Hx of shoulder surgery Family History Father Stroke Mother CAD (coronary artery disease) Social History Smoking and tobacco/nicotine status: never used tobacco/nicotine Alcohol intake: never Marital status: Current occupational status: retired Vitals/I&O/Wt Last Vital Signs Temp 98.1 F 09/28/24 12:15 Pulse 91 09/28/24 12:15 Resp 18 09/28/24 12:15 BP 147/99 09/28/24 12:15 Pulse Ox 98 09/28/24 12:15 O2 Del Method Room Air 09/28/24 12:15 Weight last 48 hrs Weight 89.811 kg Physical Exam Narrative: Vital signs noted. Blood pressure elevated. Patient is edematous lying in bed. HEENT normocephalic atraumatic. Neck no JVP. Lungs: Dull bases. Heart regular positive S1-S2. Abdomen soft distended without ascites. Extremities bilateral edema. Neuro awake alert oriented x 3 Data 09/28/24 12:09 09/28/24 12:09 Micro: Microbiology 09/28/24 13:40 Blood Culture - Preliminary Blood SPECIMEN COLLECTED 09/28/24 13:52 Blood Culture - Preliminary Blood SPECIMEN COLLECTED A&P Assessment and plan 1. Nephrotic syndrome: 74-year-old man history of nephrotic syndrome with acute kidney injury in April 2022 at that time he had a renal biopsy which I do not have results of at [facility] Dr. Wilson his PMD believes it was negative for minimal-change disease. The patient had a 3-month course of prednisone and improved. Patient has been doing well until the last 2 weeks. And now the patient comes with recurrent acute kidney injury hyponatremia severe anasarca and what appears to be nephrotic syndrome If patient has known renal biopsy that showed minimal-change disease then this is recurrence and the patient should be put on prednisone 60 mg daily and as an outpatient can be considered to be put on rituximab. I would recommend at this time the following test to be done random urine for protein and creatinine albumin and creatinine I would also repeat serologies including SPEP immunofixation, JOHN [id number] DNA C3-C4 hepatitis serologies. Please send ANCA anti-GBM and PLA2R ab However if patient does not have a known diagnosis from a renal biopsy then I would recommend transferring him to a center where they can perform a renal biopsy. Regarding hyponatremia please send urine electrolytes. Please free water restrict the patient. Please check a TSH. Will start furosemide 40 mg IV twice a day with albumin. Based on how patient's blood pressure and creatinine remains we will consider adding an NIRAJ inhibitor or ARB and maybe an SGLT2 inhibitor. However for now would start albumin furosemide and prednisone. Please check lipid profile in the morning. Please do 24-hour urine collection for protein. Please confirm that patient has a known renal biopsy with minimal-change disease in which case this is just a recurrence and would start prednisone and we can consider other medications as an outpatient. I called Dr. Wilson and discussed this with him I left a message with Dr. Elliott. I discussed this with Dr. Guo. I left a message with [facility] nephrology and I am waiting back to hear what the patient's renal biopsy showed. The patient was seen examined using audiovisual equipment. The patient consented to telehealth. Plan: See above if patient has known diagnosis of minimal-change disease then start albumin furosemide and prednisone. The patient does not have a renal biopsy diagnosis then I would recommend albumin furosemide and prednisone and transferring to a center where he can get a renal biopsy. PDMP PDMP Reviewed: Not Reviewed Consult Attestations Medical Necessity Statement: Acute kidney injury, hyponatremia, anasarca, nephrotic syndrome. Time Spent in Patient Care: Greater than 35 minutes (>than 50% of time spent in counselling and/or direct pt care on unit). Coding Level of Care Code Acute Code for [facility] Diagnoses Nephrotic syndrome N04.9
--- NOTE | 2024-09-28 15:06 | US_ITS ---
WS: [id number] RENAL ULTRASOUND HISTORY: walt COMPARISON: CT 05/04/2022 TECHNIQUE: 2-D and color Doppler imaging of the kidney submitted. Right kidney: 12.4 cm x 5.9 cm x 6.9 cm. Cortex: 1.8 cm Normal size kidney. No obstruction. Parapelvic cyst measures 2.0 x 1.6 x 1.6 cm and was also present on the study from 05/04/2022. Left kidney: 12.5 cm x 6.1 cm x 6.9 cm. Cortex: 1.6 cm Normal echogenicity with no hydronephrosis or mass. Aorta: Normal. Urinary Bladder: Normal distention. Small amount of ascites adjacent to the liver and spleen. US/US renal BI* [id number] IMPRESSION: 1. Normal size kidneys with no obstruction. 2. Stable RIGHT parapelvic cyst since 05/04/2022. 3. Small amount of ascites.
[2024-09-28 15:53] LABS: Uric Acid 9.4 mg/dL (3.4-7.0)
[2024-09-28 16:02] LABS: Cholesterol 248 mg/dL (0-200); HDL Cholesterol 34 mg/dL (60-100); Thyroid Stimulating Hormone 2.24 uIU/mL (0.27-4.20); Triglycerides 212 mg/dL (0-150)
[2024-09-28 16:12] LABS: Hepatitis B Surface Antigen Non-Reactive (Nonreactive)
[2024-09-28] MEDS: FUROsemide 10 mg/mL SDV 4mL 40 MG IVP (16:15)
[2024-09-28] MEDS: albumin 25 G/100 ML BAG 60 G IV (17:47)
--- NOTE | 2024-09-28 18:19 | P.HP_ITS ---
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 At that time he again 43 pounds of fluid and was treated with steroids and Lasix. He remained in remission but follows up with [facility] nephrology [facility] in [place]. He was doing so well but actually his next appointment is not until November. Last patient was having yellow phlegm but no fever got treated with antibiotics and feels much better symptoms started within the last week or so. This resulted in swelling prompting evaluation in presentation to the emergency department today. His history is given in part by himself and he tells me that he is put on about 20 pounds of fluid. His brother Jey is present at bedside 18 months younger and helps the patient as the patient has developed dementia with memory loss of short-term memory Jey has lab from Dr. Castle 09/23/2024 showing glucose 121 BUN 63 creatinine 1.9 GFR 37 white count 17 hematocrit 47 platelets 240 MCV 101 Total protein 5 albumin 2.2 bilirubin 0.4 AST 58 ALT 42 calcium 8.3 sodium 129 potassium 4.9 chloride 101 CO2 25 Osmo 285 urine pH 5.5 protein 3+ nitrites and leukocyte Estrace negative white cells 25-30 red cells 15-20 epithelials none with 8-10 hyaline casts Patient denies chest pain he denies dysuria hematuria or hesitancy patient denies shortness of breath cough wheezing currently but states he did have that on before treatment Neuro no history of seizures or strokes malignancy history negative Past medical history fatty liver, dementia, minimal-change disease of the kidneys Social history 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 was very strong that 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 no tobacco alcohol or illicits use he wants full code Medications/Allergies Home Medications ?Medication ?Instructions ?Recorded ?Confirmed ?Last Taken ?Type levetiracetam 500 mg tablet 500 mg PO BID 02/26/2409/28/24 08:00 History amoxicillin 875 mg-potassium 1 tab PO Q12H 09/28/2409/28/24 08:00 History clavulanate 125 mg tablet cholecalciferol (vitamin D3) 25 25 mcg PO DAILY 09/28/24 09/28/24 History mcg (1,000 unit) tablet (Vitamin D3) doxycycline hyclate 100 mg capsule 100 mg PO BID 09/2809/28/24 09/28/24 History polyethylene glycol 3350 17 17 g PO DAILY 09/28/2409/27/24 History gram/dose oral powder (Miralax) Allergies Allergy/AdvReac Type Severity Reaction Status Date / Time No Known Allergies Allergy Verified 02/26/24 15:40 PFSH Acute 2 PFSH: Medical History (Updated 09/28/24 @ 16:04 by Haris Guo DO) History of CVA (cerebrovascular accident) Lacunar infarcts on MRI Ureteral calculus S/P extracorporeal shock wave therapy Surgical History Hx of shoulder surgery Family History Father Stroke Mother CAD (coronary artery disease) Social History (Updated 09/28/24 @ 18:26 by Zander Elliott MD) Smoking and tobacco/nicotine status: never used tobacco/nicotine Alcohol intake: never Substance/Drug Use: never Additional social history: Retired accompanied by his brother Jey. Patient wants full code as discussed with myself and Jey 09/28/2024 with Zander Elliott MD Marital status: Current occupational status: retired Vitals/I&O/Wt Last Vital Signs Temp 98.1 F 09/28/24 12:15 Pulse 85 09/28/24 17:27 Resp 18 09/28/24 12:15 BP 130/94 09/28/24 16:43 Pulse Ox 98 09/28/24 16:43 O2 Del Method Room Air 09/28/24 12:15 Weight last 48 hrs Weight 89.811 kg Physical Exam 2 Narrative: General well-developed well-nourished male in no acute cardiopulmonary stress CV regular rate and rhythm Lungs clear to auscultation bilaterally Abdomen positive bowel tones soft nontender Skin warm and dry Extremities he has 1+ to 2 bilateral pretibial edema and also in the arms flanks Data 09/28/24 12:09 09/28/24 12:09 Micro: Microbiology 09/28/24 13:40 Blood Culture - Preliminary Blood SPECIMEN COLLECTED 09/28/24 13:52 Blood Culture - Preliminary Blood SPECIMEN COLLECTED A&P Assessment and plan 1. Nephrotic syndrome: Plan treatment with prednisone and albumin and furosemide for diuresis. Dr. Garcia has already seen the patient and started orders which is much appreciated 2. 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 Patient responded well to diuretics furosemide and prednisone steroid 3. Acute kidney injury: As above but baseline has creatinine running 1.9 with GFR around 40 4. Anasarca: Plan diuresis furosemide and albumin with prednisone for the minimal-change disease 5. Hyponatremia: As above 6. Hypoalbuminemia: As above PDMP PDMP Reviewed: Not Reviewed Attestations 2 Medical Necessity Statement*: Patient will require greater than 2 midnights in the hospital for treatment of his minimal-change disease with nephrotic syndrome Coding Level of Care Code 77283 Diagnoses Nephrotic syndrome N04.9 Minimal change disease N05.0 Acute kidney injury N17.9 Anasarca R60.1 Hyponatremia E87.1 Hypoalbuminemia E88.09 Time Spent (min) 70
[2024-09-28] MEDS: heparin 5,000 unit/mL INJ 1 mL 5000 UNIT SUBCUT (18:50)
[2024-09-29] VITALS (7 sets, daily range): BP systolic 128–150; BP diastolic 59–78; PULSE 65–82; RESP 18–26; TEMP 36.3–36.9; O2SAT 91–94
[2024-09-29] MEDS: FUROsemide 10 mg/mL SDV 4mL 40 MG IVP ×2 (03:06→14:02)
[2024-09-29 03:37] LABS: Hematocrit 33.2 % (37-53); Hemoglobin 11.60 g/dL (11.27-16.99); Mean Corpuscular HGB Conc 34.9 g/dL (30-55); Mean Corpuscular Hemoglobin 33.2 pg (27-33); Mean Corpuscular Volume 95.1 fl (82-101); Nucleated Red Blood Cells % 0 %; Platelet Count 203 10^3/cmm (157-399); Red Blood Count 3.49 10^6/uL (3.85-5.65); White Blood Count 5.65 10^3/uL (3.29-11.43)
[2024-09-29 04:15] LABS: Calcium 7.1 mg/dL (8.5-10.5)
[2024-09-29 04:27] LABS: Alanine Aminotransferase 27 U/L (0-41); Albumin Level 1.6 g/dL (3.5-5.2); Alkaline Phosphatase 189 U/L (40-130); Anion Gap 16.6 (5-19); Aspartate Amino Transferase 41 U/L (0-40); Calcium 7.4 mg/dL (8.5-10.5); Carbon Dioxide 17 mmol/L (22-29); Chloride 100 mmol/L (98-107); Creatinine Clr Calc Pharmacy 42.2445; Globulin 2.4 g/dL (1.3-4.6); Glucose 88 mg/dL (65-115); Magnesium 2.5 mg/dL (1.7-2.3); Osmolality Calculated 296 mOsm/kg (285-295); Potassium 4.6 mmol/L (3.5-5.1); Sodium 129 mmol/L (136-145); Total Protein 4.0 g/dL (6.6-8.7)
[2024-09-29 04:35] LABS: Blood Urea Nitrogen 92 mg/dL (8-23)
[2024-09-29] MEDS: heparin 5,000 unit/mL INJ 1 mL 5000 UNIT SUBCUT ×2 (05:58→16:45)
--- NOTE | 2024-09-29 06:41 | P.PN_ITS ---
Subjective 2 Subjective: The patient was seen and examined. The patient states he is feeling better. The patient urinated overnight. Denies nausea vomiting fevers chills headaches or diarrhea. Decreased edema. He is not urinating in a hat. He has difficulty collecting his urine. Medications: Reviewed: Yes Medication Review Details: Current Medications Furosemide (Furosemide 10 Mg/Ml Sdv 4ml) 40 mg IVP Q12H [facility] Last Admin: 09/29/24 03:06 Dose: 40 mg Heparin Sodium (Porcine) (Heparin 5,000 Unit/Ml Inj 1 Ml) 5,000 unit SUBCUT Q12H [facility] Last Admin: 09/29/24 05:58 Dose: 5,000 unit Albumin Human (Albumin) 25 g in 100 mls @ 60 mls/hr IV BID [facility] Last Infusion: 09/28/24 19:23 Dose: Infused Levetiracetam (Levetiracetam 500 Mg Tablet) 500 mg PO BID [facility] Last Admin: 09/28/24 17:47 Dose: 500 mg Pantoprazole Sodium (Pantoprazole Dr 40 Mg Tablet) 40 mg PO DAILY [facility] Polyethylene Glycol (Polyethylene Glycol 3350 Pkt 17 Gm) 17 gm PO DAILY [facility] Prednisone (Prednisone 20 Mg Tablet) 60 mg PO DAILY [facility] Vitals/I&O/Wt Last Vital Signs Temp 98.0 F 09/29/24 00:00 Pulse 65 09/29/24 05:52 Resp 23 H 09/29/24 04:00 BP 132/77 09/29/24 04:00 Pulse Ox 91 09/29/24 04:00 O2 Del Method Room Air 09/29/24 04:00 09/28/24 09/28/24 09/29/24 14:59 22:59 06:59 Intake Total 2914.33 / 2914.33 Output Total 100 / 100 Balance 2814.33 / 2814.33 Weight last 48 hrs Weight 91.807 kg Weight 89.811 kg Physical Exam 2 Narrative: Vital signs noted. Blood pressure improved Patient is edematous lying in bed. HEENT normocephalic atraumatic. Neck no JVP. Lungs: Dull bases. Heart regular positive S1-S2. Abdomen soft distended without ascites. Extremities bilateral edema improving Neuro awake alert oriented x 1-2 Seen and examined using audiovisual equipment with the aid of a nurse. Data 09/29/24 03:25 09/29/24 03:25 Micro: Microbiology 09/28/24 13:40 Blood Culture - Preliminary Blood SPECIMEN COLLECTED 09/28/24 13:52 Blood Culture - Preliminary Blood SPECIMEN COLLECTED A&P Assessment and plan 1. Nephrotic syndrome: 74-year-old man history of nephrotic syndrome with acute kidney injury in April 2022 at that time he had a renal biopsy at [facility] -which revealed minimal-change disease. The patient improved with a 3-month course of prednisone. The Patient has been doing well until the last 2 weeks. And now the patient comes with recurrent acute kidney injury hyponatremia severe anasarca and what appears to be nephrotic syndrome -This is a presumed recurrence of his minimal-change disease. Patient's creatinine improved overnight. Will continue furosemide with albumin, prednisone 60 mg a day, Protonix for GI prophylaxis and Bactrim for PCP prophylaxis. I would also repeat serologies including SPEP immunofixation, JOHN [id number] DNA C3-C4 hepatitis serologies. Please send ANCA anti-GBM and PLA2R ab hyponatremia please send urine electrolytes. Continue furosemide he is improving Please free water restrict the patient. Please check a TSH. - Hyperphosphatemia will monitor for now. Metabolic acidosis is improving should improve with diuretics. Please replace vitamin D. Will start Lipitor. I discussed this case in detail with Dr. Wilson yesterday. Plan discussed with nurse. Fluid restrict. The patient was seen examined using audiovisual equipment. The patient consented to telehealth. Plan: See above -will give albumin, furosemide, Lipitor, vitamin D and low-dose ARB. PDMP PDMP Reviewed: Not Reviewed Attestations 2 Medical Necessity Statement*: Acute kidney injury, nephrotic syndrome from minimal-change disease Time Spent in Patient Care: 16 - 35 minutes (>than 50% of time sp ent in counselling and/or direct pt care on unit) . Coding Level of Care Code Acute Code for [facility] Diagnoses Nephrotic syndrome N04.9
[2024-09-29 07:22] LABS: Creatinine Urine, Random 131 mg/dL (39-259); Potassium, Radom Urine 34 mmol/L
[2024-09-29 07:23] LABS: Urine Random Chloride 13 mmol/L
[2024-09-29 08:07] LABS: Urine Random Sodium < 10 mmol/L
[2024-09-29] MEDS: albumin 25 G/100 ML BAG 60 G IV ×2 (08:12→16:46)
[2024-09-29] MEDS: polyethylene glycol 3350 Pkt 17 gm PO (08:13)
--- NOTE | 2024-09-29 09:23 | P.PN_ITS ---
Subjective 2 Subjective: Patient is on fluid restriction of 1500 cc a day and also not voiding into a urinal so I's and O's not measured as ordered. Additionally he did not follow a fluid restriction as ordered.Weight documented as rising Patient states he feels better and has lost some edema. He is wearing the hose. His brother Jey is present at bedside Medications: Reviewed: Yes Medication Review Details: Current Medications Furosemide (Furosemide 10 Mg/Ml Sdv 4ml) 40 mg IVP Q12H [facility] Last Admin: 09/29/24 03:06 Dose: 40 mg Heparin Sodium (Porcine) (Heparin 5,000 Unit/Ml Inj 1 Ml) 5,000 unit SUBCUT Q12H [facility] Last Admin: 09/29/24 05:58 Dose: 5,000 unit Albumin Human (Albumin) 25 g in 100 mls @ 60 mls/hr IV BID [facility] Last Infusion: 09/28/24 19:23 Dose: Infused Levetiracetam (Levetiracetam 500 Mg Tablet) 500 mg PO BID [facility] Last Admin: 09/28/24 17:47 Dose: 500 mg Pantoprazole Sodium (Pantoprazole Dr 40 Mg Tablet) 40 mg PO DAILY [facility] Polyethylene Glycol (Polyethylene Glycol 3350 Pkt 17 Gm) 17 gm PO DAILY [facility] Prednisone (Prednisone 20 Mg Tablet) 60 mg PO DAILY [facility] Vitals/I&O/Wt Last Vital Signs Temp 97.7 F 09/29/24 08:00 Pulse 71 09/29/24 08:00 Resp 18 09/29/24 08:00 BP 140/59 09/29/24 08:00 Pulse Ox 94 09/29/24 08:00 O2 Del Method Room Air 09/29/24 08:00 09/28/24 09/29/24 09/29/24 22:59 06:59 14:59 Intake Total 2914.33 / 2914.33 120 / 120 Output Total 100 / 100 Balance 2814.33 / 2814.33 120 / 120 Weight last 48 hrs Weight 91.807 kg Weight 89.811 kg Physical Exam 2 Narrative: General well-developed well-nourished male in no acute cardiopulmonary stress CV regular rate and rhythm Lungs clear to auscultation bilaterally trace basilar crackles Abdomen positive bowel tones soft nontender Skin warm and dry Extremities he has 1+ bilateral pretibial edema and also in the arms flanks Data 09/29/24 03:25 09/29/24 03:25 Micro: Microbiology 09/28/24 13:13 Urine Culture - Preliminary Urine,Clean Catch 09/28/24 13:40 Blood Culture - Preliminary Blood SPECIMEN COLLECTED 09/28/24 13:52 Blood Culture - Preliminary Blood SPECIMEN COLLECTED A&P Assessment and plan 1. Nephrotic syndrome: Continue treatment with prednisone and albumin and furosemide for diuresis. I spoke with the nurse and he will be closely monitored for fluid restriction to 1500 cc a day and void in a urinal for accurate I's and O's 2. 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 Patient responded well to diuretics furosemide and prednisone steroid He is responding well at this time 3. Acute kidney injury: As above but baseline has creatinine running 1.9 with GFR around 40. Creatinine 2.2 yesterday is 1.7 today sodium giancarlo from 125 up to 129 4. Anasarca: Plan diuresis furosemide and albumin with prednisone for the minimal-change disease 5. Hyponatremia: As above 6. Hypoalbuminemia: Albumin still 1.6 7. Low vitamin D level: Will start replacement. Calcium is low PTH compensatory elevated PDMP PDMP Reviewed: Not Reviewed Attestations 2 Medical Necessity Statement*: Patient will remain in the hospital for 2 additional midnights for albumin diuresis and steroids for minimal-change disease Coding Level of Care Code 46323 Diagnoses Nephrotic syndrome N04.9 Minimal change disease N05.0 Acute kidney injury N17.9 Anasarca R60.1 Hyponatremia E87.1 Hypoalbuminemia E88.09 Low vitamin D level R79.89 Time Spent (min) 35
[2024-09-29 09:35] LABS: Microalbum Creatinine Ratio Ur 3565 mg/dL (0-20)
--- NOTE | 2024-09-29 09:37 | PC.CHAP ---
Pastoral Care Encounter/Spiritual Assessment Type of Contact [] Declined candy decorator visit [] Patient/Family/Request visit [] Outpatient visit [] Follow-up visit [] Physician referral [] Code/Alert [x] Routine visit [] Staff referral [] Actively dying [] Patient sleeping [] Family support [] [] Out of room [] Palliative care [] [] Receiving care in room [] Pre-surgical visit [] Trauma [] Long length of stay [] ICU visit [] Other: Relational/Emotional Strength [x] Patient feels connected with others/family/visitors/staff [] Distress [] Loneliness/isolation [] Abandonment Spirituality of Patient [x] Person of [place] [] Attends Restorationism of their [place] [x] Believes in Prayer [] Reads Bible or Buddhist materials [] There are Spiritual issues to be addressed Material Control Supervisor Interventions [x] Prayer [x] Active listening [] Non-anxious presence [x] Spiritual/emotional support [] Crisis/trauma care [] Spiritual counseling [] Bereavement support [] Provided bereavement packet [] Provided Bible/devotional materials [] Provided toy/stuffed animal, coloring book to patient or family member [] Provided Communion [] Anointing/Gipsy [] Salvation [x] Completed spiritual assessment [] Other: Impact on Illness or Injury [] Angry [] Fearful [] Anxious [] Often cries [] Exhaustion [] Unable to work [] Unable to attend evangelical [] Unable to walk/stand [] Unable to read [] Unable to drive [] Unable to eat/drink [] Unable to sleep [] Unable to be with family [] Patient intubated [] Other: Summary Time spent with patient 5 min
[2024-09-29] MEDS: sulfamethoxazole-trimeth DS 160-800 mg Tablet 1 TAB PO (14:02)
[2024-09-30] VITALS (7 sets, daily range): BP systolic 130–142; BP diastolic 64–75; PULSE 61–77; RESP 18–28; TEMP 36.4–36.8; O2SAT 91–95
[2024-09-30] MEDS: FUROsemide 10 mg/mL SDV 4mL 40 MG IVP (04:04)
[2024-09-30 04:21] LABS: Hematocrit 31.4 % (37-53); Hemoglobin 11.00 g/dL (11.27-16.99); Mean Corpuscular HGB Conc 35.0 g/dL (30-55); Mean Corpuscular Hemoglobin 33.1 pg (27-33); Mean Corpuscular Volume 94.6 fl (82-101); Nucleated Red Blood Cells % 0 %; Platelet Count 173 10^3/cmm (157-399); Red Blood Count 3.32 10^6/uL (3.85-5.65); White Blood Count 6.91 10^3/uL (3.29-11.43)
[2024-09-30 04:48] LABS: Alanine Aminotransferase 26 U/L (0-41); Albumin Level 2.0 g/dL (3.5-5.2); Alkaline Phosphatase 161 U/L (40-130); Anion Gap 15.0 (5-19); Aspartate Amino Transferase 34 U/L (0-40); Calcium 7.7 mg/dL (8.5-10.5); Carbon Dioxide 17 mmol/L (22-29); Chloride 100 mmol/L (98-107); Creatinine Clr Calc Pharmacy 31.2099; Globulin 2.2 g/dL (1.3-4.6); Glucose 132 mg/dL (65-115); Magnesium 2.5 mg/dL (1.7-2.3); Osmolality Calculated 297 mOsm/kg (285-295); Potassium 5.0 mmol/L (3.5-5.1); Sodium 127 mmol/L (136-145); Total Protein 4.2 g/dL (6.6-8.7)
[2024-09-30 04:59] LABS: Blood Urea Nitrogen 99 mg/dL (8-23)
[2024-09-30] MEDS: heparin 5,000 unit/mL INJ 1 mL 5000 UNIT SUBCUT ×2 (06:13→17:47)
[2024-09-30 07:19] LABS: Anti-Double Strand DNA AB <1 IU/mL; PROTEIN, TOTAL 3.5 g/dL (6.1-8.1)
--- NOTE | 2024-09-30 08:19 | P.PN_ITS ---
Subjective 2 Subjective: 74-year-old male states he fee ls fine but he was hoping his kidney function would be better. No difficulty breathing. Patient currently on glucocorticoid monotherapy which did work to induce remission April 2022 Medications: Reviewed: Yes Vitals/I&O/Wt Last Vital Signs Temp 97.5 F L 09/30/24 07:47 Pulse 69 09/30/24 07:47 Resp 18 09/30/24 07:47 BP 131/70 09/30/24 07:47 Pulse Ox 94 09/30/24 07:47 O2 Del Method Room Air 09/30/24 07:47 09/29/24 09/30/24 09/30/24 22:59 06:59 14:59 Intake Total 270 / 490 50 / 540 Output Total 350 / 575 500 / 1075 Balance -80 / -85 -450 / -535 Weight last 48 hrs Weight 89.721 kg Weight 91.807 kg Weight 89.811 kg Physical Exam 2 Narrative: General well-developed well-nourished male in no acute cardiopulmonary distress CV regular rate and rhythm Lungs clear except trace crackles in the right lower lung field Abdomen positive bowel tones soft nontender Calves 1+ pretibial edema with compression hose in place Arms 2+ edema bilateral forearms Data 09/30/24 03:48 09/30/24 03:48 Micro: Microbiology 09/29/24 21:47 Gram Stain - Final Sputum - Expectorated Sputum 09/28/24 13:13 Urine Culture - Final Urine,Clean Catch 09/28/24 13:40 Blood Culture - Preliminary Blood NEGATIVE TO DATE 09/28/24 13:52 Blood Culture - Preliminary Blood NEGATIVE TO DATE A&P Assessment and plan 1. Nephrotic syndrome: Continue treatment with prednisone and albumin and furosemide for diuresis. Patient only took took an 420 cc yesterday with 1075 cc out and is weight is down to 89.7 kilograms from 91.8. Edema is decreasing. 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 Patient responded well to diuretics furosemide and prednisone steroid Proteinuria 09/29/2024 worse at 890 versus 594 on 09/28/2024. 3. Acute kidney injury: As above but baseline has creatinine running 1.9 with GFR around 40. Creatinine up to 2.3 with continued proteinuria and now on Bactrim. Will discuss with Dr. Garcia nephrology 4. Anasarca: Improved 5. Hyponatremia: Sodium 127 6. Hypoalbuminemia: Albumin still 2.0 with infusions 7. Low vitamin D level: Will start replacement. Calcium is low PTH compensatory elevated PDMP PDMP Reviewed: Not Reviewed Attestations 2 Medical Necessity Statement*: Patient will require additional 1-2 midnights in the hospital for monitoring of urine protein and serum labs on treatment. May require additional immunosuppressants Coding Level of Care Code 29532 Diagnoses Nephrotic syndrome N04.9 Minimal change disease N05.0 Acute kidney injury N17.9 Anasarca R60.1 Hyponatremia E87.1 Hypoalbuminemia E88.09 Low vitamin D level R79.89 Time Spent (min) 35
[2024-09-30] MEDS: albumin 25 G/100 ML BAG 60 G IV (09:09)
--- NOTE | 2024-09-30 09:49 | PM.PN ---
Subjective Subjective: Patient was seen and examined. The patient states that he is urinating in the urinal. The patient states that he misses some of his urine output but when he sits he mostly collects that he says he has decreased edema and decreased shortness of breath and he is feeling better denies nausea vomiting or diarrhea. Medications: Reviewed: Yes Medication Review Details: Current Medications Atorvastatin Calcium (Atorvastatin 40 Mg Tablet) 20 mg PO BEDTIME [facility] Last Admin: 09/29/24 21:38 Dose: 20 mg Ergocalciferol (Ergocalciferol (Vitamin D2) 50,000 Unit Capsule) 50,000 unit PO Q7D KIMMIE Last Admin: 09/29/24 08:12 Dose: 50,000 unit Furosemide (Furosemide 10 Mg/Ml Sdv 4ml) 40 mg IVP Q12H KIMMIE Last Admin: 09/30/24 04:04 Dose: 40 mg Heparin Sodium (Porcine) (Heparin 5,000 Unit/Ml Inj 1 Ml) 5,000 unit SUBCUT Q12H KIMMIE Last Admin: 09/30/24 06:13 Dose: 5,000 unit Albumin Human (Albumin) 25 g in 100 mls @ 60 mls/hr IV BID KIMMIE Last Admin: 09/30/24 09:09 Dose: 60 mls/hr Levetiracetam (Levetiracetam 500 Mg Tablet) 500 mg PO BID KIMMIE Last Admin: 09/30/24 09:08 Dose: 500 mg Pantoprazole Sodium (Pantoprazole Dr 40 Mg Tablet) 40 mg PO DAILY [facility] Last Admin: 09/30/24 09:09 Dose: 40 mg Polyethylene Glycol (Polyethylene Glycol 3350 Pkt 17 Gm) 17 gm PO DAILY [facility] Last Admin: 09/30/24 09:08 Dose: Not Given Prednisone (Prednisone 20 Mg Tablet) 60 mg PO DAILY [facility] Last Admin: 09/30/24 09:08 Dose: 60 mg Trimethoprim/Sulfamethoxazole (Sulfamethoxazole-Trimeth Ds 160-800 Mg Tablet) 1 tab PO QMWF KIMMIE; Protocol Last Admin: 09/29/24 14:02 Dose: 1 tab Vitals/I&O/Wt Last Vital Signs Temp 97.5 F L 09/30/24 07:47 Pulse 69 09/30/24 07:47 Resp 18 09/30/24 07:47 BP 131/70 09/30/24 07:47 Pulse Ox 94 09/30/24 07:47 O2 Del Method Room Air 09/30/24 07:47 09/29/24 09/30/24 09/30/24 22:59 06:59 14:59 Intake Total 270 / 490 50 / 540 360 / 360 Output Total 350 / 575 500 / 1075 Balance -80 / -85 -450 / -535 360 / 360 Weight last 48 hrs Weight 89.721 kg Weight 91.807 kg Weight 89.811 kg Physical Exam Narrative: Vital signs noted. Patient is comfortable, lying in bed. HEENT normocephalic atraumatic. Neck no JVP. Lungs: Improved air movement on right side, left side crackles and dullness Heart regular positive S1-S2. Abdomen soft, nontender, less distended Extremities bilateral edema improving Neuro awake alert oriented x 2+. He is interactive and follows commands Seen and examined using audiovisual equipment with the aid of a nurse. Data 09/30/24 03:48 09/30/24 03:48 Micro: Microbiology 09/29/24 21:47 Gram Stain - Final Sputum - Expectorated Sputum 09/28/24 13:13 Urine Culture - Final Urine,Clean Catch 09/28/24 13:40 Blood Culture - Preliminary Blood NEGATIVE TO DATE 09/28/24 13:52 Blood Culture - Preliminary Blood NEGATIVE TO DATE A&P Assessment and plan 1. Nephrotic syndrome: 74-year-old man history of nephrotic syndrome with acute kidney injury in April 2022 at that time he had a renal biopsy at [facility] -which revealed minimal-change disease. The patient improved with a 3-month course of prednisone. The Patient has been doing well until the last 2 weeks. And now the patient comes with recurrent acute kidney injury hyponatremia severe anasarca and what appears to be nephrotic syndrome -This is a presumed recurrence of his minimal-change disease. Patient's creatinine improved overnight between the and . Patient's creatinine giancarlo again. At this time I will stop his albumin and change furosemide to 40 mg p.o. twice daily Will continue prednisone 60 mg a day, Protonix for GI prophylaxis and Bactrim for PCP prophylaxis. Urine studies have improved microalbumin creatinine ratio of 3565. And urine protein creatinine ratio of approximately 5.5 g proteinuria please note that 2 years ago he had a 25 urine protein 9.3 g. Patient's albumin is 2 up from 1.6. -SPEP is pending Patient has hyperlipidemia with an LDL of 172 we will use statin. Fbay-xmjzcw-vyjsnzqd DNA is negative Hepatitis allergies are negative Patient has acute kidney injury likely from ATN in the setting of minimal-change disease. Patient is urinating well. Once renal function stabilizes would like to start an NIRAJ inhibitor or ARB. Hyponatremia patient likely has effective intravascular volume depletion urine random sodium was less than 10 urine chloride was low at 13. Hopefully as nephrotic syndrome improved sodium will also improve. Free water restrict patient. Please remove sodium restriction on diet Non-anion gap metabolic acidosis. Magnesium mildly elevated. Hyperphosphatemia improving. Anemia with monitor his hemoglobin is dropped from 14.9-11.6 hopefully stabilizing at 11. Patient denies any bleeding. - Please replace vitamin D. The patient was seen examined using audiovisual equipment. The patient consented to telehealth. Plan: See above -will give albumin, furosemide, Lipitor, vitamin D and low-dose ARB. PDMP PDMP Reviewed: Not Reviewed Attestations Medical Necessity Statement*: Acute kidney injury hyponatremia mild hyperkalemia nephrotic syndrome. Time Spent in Patient Care: 16 - 35 minutes (>than 50% of time spent in counselling and/or direct pt care on unit). Coding Level of Care Code Acute Code for [facility] [place] Diagnoses Nephrotic syndrome N04.9
[2024-10-01] VITALS (8 sets, daily range): BP systolic 133–146; BP diastolic 67–86; PULSE 59–91; RESP 17–23; TEMP 36.4–36.9; O2SAT 91–95
[2024-10-01 03:29] LABS: Hematocrit 32.4 % (37-53); Hemoglobin 11.20 g/dL (11.27-16.99); Mean Corpuscular HGB Conc 34.6 g/dL (30-55); Mean Corpuscular Hemoglobin 32.9 pg (27-33); Mean Corpuscular Volume 95.3 fl (82-101); Nucleated Red Blood Cells % 0 %; Platelet Count 169 10^3/cmm (157-399); Red Blood Count 3.40 10^6/uL (3.85-5.65); White Blood Count 6.43 10^3/uL (3.29-11.43)
[2024-10-01 03:48] LABS: Alanine Aminotransferase 24 U/L (0-41); Albumin Level 2.2 g/dL (3.5-5.2); Alkaline Phosphatase 160 U/L (40-130); Anion Gap 17.7 (5-19); Aspartate Amino Transferase 29 U/L (0-40); Calcium 8.0 mg/dL (8.5-10.5); Carbon Dioxide 17 mmol/L (22-29); Chloride 104 mmol/L (98-107); Creatinine Clr Calc Pharmacy 28.7131; Globulin 2.2 g/dL (1.3-4.6); Glucose 125 mg/dL (65-115); Magnesium 2.6 mg/dL (1.7-2.3); Osmolality Calculated 308 mOsm/kg (285-295); Potassium 5.7 mmol/L (3.5-5.1); Sodium 133 mmol/L (136-145); Total Protein 4.4 g/dL (6.6-8.7)
[2024-10-01 03:57] LABS: Blood Urea Nitrogen 99 mg/dL (8-23)
[2024-10-01] MEDS: heparin 5,000 unit/mL INJ 1 mL 5000 UNIT SUBCUT ×2 (06:11→18:25)
[2024-10-01] MEDS: polyethylene glycol 3350 Pkt 17 gm PO (08:43)
--- NOTE | 2024-10-01 08:50 | P.PN_ITS ---
Subjective 2 Subjective: Patient reports watery stools without actual turds during this hospitalization. This would happen when he would go pee in the toilet but has slowed down. He states swelling overall has decreased as well. Medications: Reviewed: Yes Medication Review Details: Current Medications Atorvastatin Calcium (Atorvastatin 40 Mg Tablet) 20 mg PO BEDTIME [facility] Last Admin: 09/29/24 21:38 Dose: 20 mg Ergocalciferol (Ergocalciferol (Vitamin D2) 50,000 Unit Capsule) 50,000 unit PO Q7D KIMMIE Last Admin: 09/29/24 08:12 Dose: 50,000 unit Furosemide (Furosemide 10 Mg/Ml Sdv 4ml) 40 mg IVP Q12H KIMMIE Last Admin: 09/30/24 04:04 Dose: 40 mg Heparin Sodium (Porcine) (Heparin 5,000 Unit/Ml Inj 1 Ml) 5,000 unit SUBCUT Q12H KIMMIE Last Admin: 09/30/24 06:13 Dose: 5,000 unit Albumin Human (Albumin) 25 g in 100 mls @ 60 mls/hr IV BID KIMMIE Last Admin: 09/30/24 09:09 Dose: 60 mls/hr Levetiracetam (Levetiracetam 500 Mg Tablet) 500 mg PO BID KIMMIE Last Admin: 09/30/24 09:08 Dose: 500 mg Pantoprazole Sodium (Pantoprazole Dr 40 Mg Tablet) 40 mg PO DAILY [facility] Last Admin: 09/30/24 09:09 Dose: 40 mg Polyethylene Glycol (Polyethylene Glycol 3350 Pkt 17 Gm) 17 gm PO DAILY [facility] Last Admin: 09/30/24 09:08 Dose: Not Given Prednisone (Prednisone 20 Mg Tablet) 60 mg PO DAILY [facility] Last Admin: 09/30/24 09:08 Dose: 60 mg Trimethoprim/Sulfamethoxazole (Sulfamethoxazole-Trimeth Ds 160-800 Mg Tablet) 1 tab PO QMWF KIMMIE; Protocol Last Admin: 09/29/24 14:02 Dose: 1 tab Vitals/I&O/Wt Last Vital Signs Temp 97.6 F 10/01/24 07:59 Pulse 69 10/01/24 07:59 Resp 23 H 10/01/24 07:59 BP 146/78 10/01/24 07:59 Pulse Ox 92 10/01/24 07:59 O2 Del Method Room Air 10/01/24 07:59 09/30/24 10/01/24 10/01/24 22:59 06:59 14:59 Intake Total 25 / 485 Output Total 520 / 820 350 / 1170 Balance -495 / -335 -350 / -685 Weight last 48 hrs Weight 88.405 kg Weight 89.721 kg Physical Exam 2 Narrative: General well-developed well-nourished male in no acute cardiopulmonary distress CV regular rate and rhythm Lungs clear except trace crackles in the right lower lung field Abdomen positive bowel tones soft nontender Calves trace to 1 pretibial edema with compression hose in place Arms 2+ edema bilateral forearms Data 10/01/24 02:56 10/01/24 02:56 Micro: Microbiology 09/29/24 21:47 Gram Stain - Final Sputum - Expectorated Sputum 09/28/24 13:13 Urine Culture - Final Urine,Clean Catch A&P Assessment and plan 1. Nephrotic syndrome: Continue treatment with prednisone and albumin and furosemide for diuresis. Patient only took took an 540 cc yesterday with 1075 cc out and is weight is down to 88.7 kilograms from 91.8. Edema is decreasing. Creatinine bumped up a little bit to 2.5 and potassium to 5.6 Hold Bactrim as okayed with Dr. 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 Patient responded well to diuretics furosemide and prednisone steroid Proteinuria 09/29/2024 worse at 890 versus 594 on 09/28/2024. 3. Acute kidney injury: As above but baseline has creatinine running 1.9 with GFR around 40. Creatinine up to 2.6 with continued proteinuria and now on Bactrim. Hold Bactrim continue current furosemide 40 mg twice a day 4. Anasarca: Improved. Elevate forearms on pillows when not walking 5. Hyponatremia: Sodium 127 yesterday up to 133 today 6. Hypoalbuminemia: Albumin still 2.2 with infusions 7. Low vitamin D level: Will start replacement. Calcium is low PTH compensatory elevated 8. Constipation: Add docusate to MiraLAX and will give a dose of lactulose today PDMP PDMP Reviewed: Not Reviewed Attestations 2 Medical Necessity Statement*: Patient requires additional midnight in the hospital to monitor renal function and proteinuria Coding Level of Care Code 22770 Diagnoses Nephrotic syndrome N04.9 Minimal change disease N05.0 Acute kidney injury N17.9 Anasarca R60.1 Hyponatremia E87.1 Hypoalbuminemia E88.09 Low vitamin D level R79.89 Constipation K59.00 Time Spent (min) 35
--- NOTE | 2024-10-01 13:31 | PC.SOCIAL ---
IMM updated IMM dated and initialed, copy placed in chart and copy given to patient
[2024-10-01 14:34] LABS: KAPPA LIGHT CHAIN, FREE, SERUM 51.5 mg/L (3.3-19.4); KAPPA/LAMBDA LIGHT CHAINS FREE 0.40 (0.26-1.65); LAMBDA LIGHT CHAIN, FREE, SERU 128.3 mg/L (5.7-26.3)
--- NOTE | 2024-10-01 14:41 | P.PN_ITS ---
Subjective 2 Subjective: on room air Medications: Reviewed: Yes Vitals/I&O/Wt Last Vital Signs Temp 97.6 F 10/01/24 11:34 Pulse 67 10/01/24 11:34 Resp 17 10/01/24 11:34 BP 137/76 10/01/24 11:34 Pulse Ox 94 10/01/24 11:34 O2 Del Method Room Air 10/01/24 11:34 09/30/24 10/01/24 10/01/24 22:59 06:59 14:59 Intake Total 25 / 485 120 / 120 Output Total 520 / 820 350 / 1170 650 / 650 Balance -495 / -335 -350 / -685 -530 / -530 Weight last 48 hrs Weight 88.405 kg Weight 89.721 kg Physical Exam 2 Narrative: Vital signs noted. Patient is comfortable, lying in bed. HEENT normocephalic atraumatic. Neck no JVP. Lungs: Improved air movement on right side, left side crackles and dullness Heart regular positive S1-S2. Abdomen soft, nontender, less distended Extremities bilateral edema improving Neuro awake alert oriented x 2+. He is interactive and follows commands Seen and examined using audiovisual equipment with the aid of a nurse. Data 10/01/24 02:56 10/01/24 02:56 Micro: Microbiology 09/29/24 21:47 Gram Stain - Final Sputum - Expectorated Sputum Sputum Culture - Preliminary A&P Assessment and plan 1. Nephrotic syndrome: 74-year-old man history of nephrotic syndrome with acute kidney injury in April 2022 at that time he had a renal biopsy at [facility] -which revealed minimal-change disease.The patient improved with a 3-month course of prednisone.The Patient has been doing well until the last 2 weeks. And now the patient comes with recurrent acute kidney injury hyponatremia severe anasarca and what appears to be nephrotic syndrome. 1. Acute kidney injury: Presumed secondary to minimal-change disease flare, patient was started on diuretics-IV Lasix. -Noted creatinine increased in the last 24 hours., Will place patient on IV albumin again and hold diuretics temporarily. Will continue prednisone 60 mg a day, Protonix for GI prophylaxis and Bactrim for PCP prophylaxis. Urine studies have improved microalbumin creatinine ratio of 3565. And urine protein creatinine ratio of approximately 5.5 g proteinuria please note that 2 years ago he had a 25 urine protein 9.3 g. -SPEP is pending Patient has hyperlipidemia with an LDL of 172 we will use statin. Tbln-ayzrmw-rwvtsysx DNA is negative Hepatitis allergies are negative Patient has acute kidney injury likely from ATN in the setting of minimal-change disease. Patient is urinating well. Once renal function stabilizes would like to start an NIRAJ inhibitor or ARB. 2. Hyponatremia patient likely has effective intravascular volume depletion urine random sodium was less than 10 urine chloride was low at 13. Hopefully as nephrotic syndrome improved sodium will also improve. Free water restrict patient. Please remove sodium restriction on diet Non-anion gap metabolic acidosis. Magnesium mildly elevated. Hyperphosphatemia improving. Anemia with monitor his hemoglobin is dropped from 14.9-11.6 hopefully stabilizing at 11. Hyperkalemia: Low K diet and status post kayexylate The patient was seen examined using audiovisual equipment. The patient consented to telehealth. Plan: See above -will give albumin, furosemide, Lipitor, vitamin D and low-dose ARB. PDMP PDMP Reviewed: Not Reviewed Attestations 2 Medical Necessity Statement*: per milton Coding Level of Care Code Acute Code for [facility] Diagnoses Nephrotic syndrome N04.9
[2024-10-01] MEDS: albumin 25 G/100 ML BAG 60 G IV ×2 (16:38→23:25)
[2024-10-01 17:13] LABS: Calcium 8.2 mg/dL (8.5-10.5); Carbon Dioxide 17 mmol/L (22-29); Chloride 104 mmol/L (98-107); Creatinine Clr Calc Pharmacy 31.0001; Glucose 117 mg/dL (65-115); Osmolality Calculated 311 mOsm/kg (285-295); Sodium 135 mmol/L (136-145)
[2024-10-01 17:22] LABS: Blood Urea Nitrogen 97 mg/dL (8-23)
[2024-10-01 17:23] LABS: Anion Gap 18.9 (5-19); Potassium 4.9 mmol/L (3.5-5.1)
[2024-10-02] VITALS (13 sets, daily range): BP systolic 117–149; BP diastolic 75–90; PULSE 71–95; RESP 15–30; TEMP 36.5–36.6; O2SAT 93–97
--- NOTE | 2024-10-02 01:19 | ECG_ITS ---
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 Measurements Intervals [place] Rate: 87 P: 57 MN: 211 QRS: 46 QRSD: 98 T: 92 QT: 347 QTc: 418 Interpretive Statements SINUS RHYTHM WITH FIRST DEGREE AV BLOCK WITH OCCASIONAL VENTRICULAR PREMATURE COMPLEXES NONSPECIFIC ST & T-WAVE ABNORMALITY Compared to ECG 09/28/2024 13:18:44 Ventricular premature complex(es) now present T-wave abnormality now present Electronically Signed On 10-02-2024 14:09:53 CDT by Ana Blackwell M.D. [email or web address] [id number]
--- NOTE | 2024-10-02 01:48 | XRR_ITS ---
PROCEDURE INFORMATION: Exam: XR Chest Exam date and time: 10/02/2024 2:21 AM Age: 74 years old Clinical indication: Chest pressure; C/O chest pain TECHNIQUE: Imaging protocol: Radiologic exam of the chest. Views: 1 view. COMPARISON: CR XR chest 1V portable [id number] 09/28/2024 11:37 AM FINDINGS: Lungs: Low lung volumes with central vascular congestion and slight interstitial prominence. Some pulmonary edema may be present. Mild bibasilar airspace disease is ill-defined and could reflect atelectasis or infiltrate. Pleural spaces: Blunting of the costophrenic angles, possibly small pleural fluid. No pneumothorax is apparent. Heart/Mediastinum: Stable cardiomediastinal contours. Bones/joints: No acute osseous findings. Degenerative changes to the right shoulder. XR/XR chest 1V portable [id number] IMPRESSION: Central vascular congestion with possible pulmonary edema. Bibasilar airspace disease could reflect atelectasis or infiltrate.
[2024-10-02 02:31] LABS: Troponin(5th) Baseline 105 ng/L (0-15)
[2024-10-02] MEDS: morphine 4 mg/mL SDV 1 mL 2 MG IVP (02:56)
--- NOTE | 2024-10-02 03:02 | ECG_ITS ---
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1950 Requested By: Luther Stern Order Number: [id number] Reading MD: JOCELYN CARR Measurements Intervals [place] Rate: 87 P: 0 NV: 0 QRS: 37 QRSD: 105 T: 75 QT: 353 QTc: 426 Interpretive Statements ATRIAL FIBRILLATION NONSPECIFIC ST & T-WAVE ABNORMALITY ABNORMAL RHYTHM ECG Compared to ECG 10/02/2024 01:19:32 Sinus rhythm no longer present Ventricular premature complex(es) no longer present First degree AV block no longer present T-wave abnormality still present Electronically Signed On 10-02-2024 16:10:16 CDT by JOCELYN CARR [email or web address] [id number]
[2024-10-02 04:30] LABS: Anion Gap 18.5 (5-19); Calcium 7.9 mg/dL (8.5-10.5); Carbon Dioxide 18 mmol/L (22-29); Chloride 106 mmol/L (98-107); Creatinine Clr Calc Pharmacy 35.6501; Glucose 164 mg/dL (65-115); Osmolality Calculated 318 mOsm/kg (285-295); Potassium 4.5 mmol/L (3.5-5.1); Sodium 138 mmol/L (136-145)
[2024-10-02 04:32] LABS: Troponin 5 2HR 134.1 ng/L (0-15)
[2024-10-02 04:33] LABS: Blood Urea Nitrogen 93 mg/dL (8-23); Troponin 5 2HR Delta 29.1 ABS# (0-10)
[2024-10-02] MEDS: heparin drip 25,000 UNIT/500 ML PREMIX 26 UNIT IV (05:40)
[2024-10-02] MEDS: heparin 5,000 unit/mL INJ 1 mL 4600 UNIT IVP (05:44)
[2024-10-02 05:58] LABS: Platelet Count 156 10^3/cmm (157-399)
--- NOTE | 2024-10-02 06:23 | USCV_ITS ---
Morgan Zurdo Age: 74 Gender: M : 1950 Exam Date: 10/02/2024 11:47 Ordering Phys: Luther Stern MD Technologist: Anthony Orr [place] [facility] [place]: nstemi BP: 139 / 81 HR: 86 Rhythm: Sinus Technical Quality: Adequate MEASUREMENTS (Male / Female) Normal Values 2D ECHO LV Diastolic Diameter PLAX 4.4 cm 4.2 - 5.9 / 3.9 - 5.3 cm IVS Diastolic Thickness 1.1 cm 0.6 - 1.0 / 0.6 - 0.9 cm IVS Systolic Thickness 1.0 cm LVPW Diastolic Thickness 2.0 cm 0.6 - 1.0 / 0.6 - 0.9 cm LVPW Systolic Thickness 2.1 cm LVOT Diameter 2.1 cm LV Ejection Fraction 2D Teich 74.5 % LV Ejection Fraction MOD 4C 64.7 % LA Diameter 4.5 cm RA Systolic Volume 4C AL 81.8 ml RA Systolic Volume 4C MOD 70.8 ml LA Sys Volume AL 86.4 cm cubed LA Sys Volume Index AL 40.2 cm cubed/m squared Aorta at Sinotubular Diameter 2.6 cm IVC Diameter 1.8 cm M-MODE LA Ao Ratio MM 1.7 AV Cusp Separation MM 1.5 cm DOPPLER AV Peak Velocity 294.3 cm/s LVOT Peak Velocity 79.0 cm/s AV Area Cont Eq vti 2.2 cm squared AV Area Cont Eq pk 0.9 cm squared MV Peak Velocity 129.0 cm/s MV Area PHT 3.7 cm squared Mitral E to A Ratio 2.3 TV Peak Velocity 326.5 cm/s TR Peak Velocity 332.0 cm/s TR Peak Gradient 44.1 mmHg TR Mean Velocity 257.0 cm/s TR Mean Gradient 28.2 mmHg TR Velocity Time Integral 98.5 cm PV Peak Velocity 143.0 cm/s RV Ejection Time 0.4 s FINDINGS Left Ventricle Normal LV size with diminished ejection fraction of around 45 to 50% visual. Hypokinetic LV apex Right Ventricle The right ventricle is normal in size and function. Right Atrium Mildly increased right atrial size. Left Atrium Moderately increased left atrial size. Mitral Valve Severe mitral regurgitation Aortic Valve Thickened aortic valve. Mild aortic valve regurgitation. Tricuspid Valve Mild tricuspid valve regurgitation. Pulmonic Valve Pulmonic valve not well visualized. Pericardium Normal pericardium without effusion. Aorta Normal ascending aorta dimension. IVC Normal inferior vena cava. CONCLUSIONS Normal LV size with diminished ejection fraction of around 45 to 50% visual. Hypokinetic LV apex. Mildly increased right atrial size. Moderately increased left atrial size. Severe mitral regurgitation. Thickened aortic valve. Mild aortic valve regurgitation. Mild tricuspid valve regurgitation. There is no pericardial effusion. There are no intracardiac masses. Compared to the study from 05/05/2022, the wall motion abnormality is new. There is significant worsening of the mitral regurgitation-from mild MR to severe MR Dr Ana Blackwell MD [facility] (Electronically Signed) Final Date: 02 October 2024 13:35 S
--- NOTE | 2024-10-02 07:35 | ECG_ITS ---
[facility]: 2024-[facility]02 Pat Name: Zurdo Mora Department: Room: 104 Gender: Male Site Monitor: : 1950 Requested By: Luther Stern Order Number: [id number] Reading MD: JOCELYN CARR Measurements Intervals [place] Rate: 81 P: 89 ME: 195 QRS: 34 QRSD: 96 T: 31 QT: 374 QTc: 436 Interpretive Statements SINUS RHYTHM WITH OCCASIONAL VENTRICULAR PREMATURE COMPLEXES MINIMAL ST DEPRESSION [0.025+ mV ST DEPRESSION] Compared to ECG 10/02/2024 03:02:51 Ventricular premature complex(es) now present ST (T wave) deviation now present Atrial fibrillation no longer present T-wave abnormality no longer present Electronically Signed On 10-02-2024 16:10:04 CDT by JOCELYN CARR [id number]
[2024-10-02] MEDS: albumin 25 G/100 ML BAG 60 G IV ×2 (08:30→14:49)
--- NOTE | 2024-10-02 08:39 | PM.PN ---
Subjective Subjective: 74-year-old male admitted with nephrotic syndrome still with proteinuria I's and O's 850 in the last 24 hours and output 2600. Edema has improved and creatinine dropped to 2 Last evening he had chest pain felt like he could not breathe with chest pain 7/10 relieved by nitroglycerin. EKG shows sinus with PACs and also some A-fib patient was started on heparin drip by Dr. Stern overnight. Cardiac enzymes started at 105 and giancarlo to 134 at 2 hours. The 6 hours still pending. Patient is on aspirin, heparin drip, statin. Medications: Reviewed: Yes Medication Review Details: Current Medications Atorvastatin Calcium (Atorvastatin 40 Mg Tablet) 20 mg PO BEDTIME [facility] Last Admin: 09/29/24 21:38 Dose: 20 mg Ergocalciferol (Ergocalciferol (Vitamin D2) 50,000 Unit Capsule) 50,000 unit PO Q7D KIMMIE Last Admin: 09/29/24 08:12 Dose: 50,000 unit Furosemide (Furosemide 10 Mg/Ml Sdv 4ml) 40 mg IVP Q12H KIMMIE Last Admin: 09/30/24 04:04 Dose: 40 mg Heparin Sodium (Porcine) (Heparin 5,000 Unit/Ml Inj 1 Ml) 5,000 unit SUBCUT Q12H KIMMIE Last Admin: 09/30/24 06:13 Dose: 5,000 unit Albumin Human (Albumin) 25 g in 100 mls @ 60 mls/hr IV BID KIMMIE Last Admin: 09/30/24 09:09 Dose: 60 mls/hr Levetiracetam (Levetiracetam 500 Mg Tablet) 500 mg PO BID KIMMIE Last Admin: 09/30/24 09:08 Dose: 500 mg Pantoprazole Sodium (Pantoprazole Dr 40 Mg Tablet) 40 mg PO DAILY [facility] Last Admin: 09/30/24 09:09 Dose: 40 mg Polyethylene Glycol (Polyethylene Glycol 3350 Pkt 17 Gm) 17 gm PO DAILY [facility] Last Admin: 09/30/24 09:08 Dose: Not Given Prednisone (Prednisone 20 Mg Tablet) 60 mg PO DAILY [facility] Last Admin: 09/30/24 09:08 Dose: 60 mg Trimethoprim/Sulfamethoxazole (Sulfamethoxazole-Trimeth Ds 160-800 Mg Tablet) 1 tab PO QMWF KIMMIE; Protocol Last Admin: 09/29/24 14:02 Dose: 1 tab Vitals/I&O/Wt Last Vital Signs Temp 97.8 F 10/02/24 07:24 Pulse 74 10/02/24 07:24 Resp 22 H 10/02/24 07:24 BP 139/81 10/02/24 07:24 Pulse Ox 95 10/02/24 07:24 O2 Del Method Nasal Cannula 10/02/24 07:24 O2 Flow Rate 3 10/02/24 04:00 10/01/24 10/02/24 10/02/24 22:59 06:59 14:59 Intake Total 160 / 280 100 / 380 Output Total 525 / 1175 250 / 1425 Balance -365 / -895 -150 / -1045 Weight last 48 hrs Weight 92.986 kg Weight 88.405 kg Physical Exam Narrative: General well-developed well-nourished male appears very fatigued this morning CV regular rate and rhythm Lungs clear except trace crackles in the left lower lung field Abdomen positive bowel tones soft nontender Calves trace to 1 pretibial edema with compression hose in place Arms 1+ edema bilateral forearms Data 10/02/24 05:46 10/02/24 03:25 Micro: Microbiology 09/29/24 21:47 Gram Stain - Final Sputum - Expectorated Sputum Sputum Culture - Preliminary A&P Assessment and plan 1. NSTEMI (non-ST elevated myocardial infarction): Chest pain 7/10 relieved by nitroglycerin and troponin 100 giancarlo to 134 at 2 hours. EKG this morning sinus rhythm and back to baseline with nonspecific ST-T wave changes. At 304 he had atrial fibs with inferolateral ST-T wave depression 1 box to 1-1/2 box in leads I, II, V4, V5 and V6 I have consulted Dr. Blackwell to evaluate the patient for cardiology. 2. Nephrotic syndrome: Continue treatment with prednisone and albumin and furosemide for diuresis. Edema is decreased but weight somehow increased to 92.9 despite negative fluid balance. 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 Patient responded well to diuretics furosemide and prednisone steroid Proteinuria 09/29/2024 worse at 890 versus 594 on 09/28/2024. On 10/01/2024 measured 880 mg/dL 4. Acute kidney injury: As above but baseline has creatinine running 1.9 with GFR around 40. Creatinine down to 2 5. Anasarca: Improved. Elevate forearms on pillows when not walking 6. Hyponatremia: Sodium 127 yesterday up to 133 today Now resolved with sodium 138 7. Hypoalbuminemia: Albumin still 2.2 with infusions 8. Low vitamin D level: Will continue replacement. Calcium is low PTH compensatory elevated 9. Constipation: Add docusate to MiraLAX and will give a dose of lactulose today 10. Hyperkalemia: Resolved with Kayexalate now at 4.5 will decrease to once a day PDMP PDMP Reviewed: Not Reviewed Attestations Medical Necessity Statement*: Patient with NSTEMI and nephrotic syndrome will require additional 2 midnights in hospital Coding Level of Care Code 53852 Diagnoses NSTEMI (non-ST elevated myocardial infarction) I21.4 Nephrotic syndrome N04.9 Minimal change disease N05.0 Acute kidney injury N17.9 Anasarca R60.1 Hyponatremia E87.1 Hypoalbuminemia E88.09 Low vitamin D level R79.89 Constipation K59.00 Hyperkalemia E87.5 Time Spent (min) 40
[2024-10-02] MEDS: polyethylene glycol 3350 Pkt 17 gm PO (08:44)
--- NOTE | 2024-10-02 09:02 | PM.CONSULT ---
Providers/Reason For Consult Consulting Physician/Specialty*: Delfina Blackwell MD/cardiology Reason for Consult*: Patient with elevated troponin T, atrial fibrillation Requesting Physician: Dr. Elliott Attending Physician: Zander Elliott MD Primary Care Provider: Gregory Wilson MD History of Present Illness History of Present Illness Zurdo Mora is a 74 year old male with a history of chronic kidney disease/nephrotic syndrome/minimal-change disease is admitted to the hospital through the emergency room where he presented with complaints of increasing swelling of the extremities and shortness of breath. He is being treated with diuretics and other symptomatic measures. His symptoms were improving. Last night, he started having chest tightness/pain. The pain was radiating across the chest. He has been having chest discomfort, practically through the night. He was given sublingual nitroglycerin which apparently relieved the pain. He had another sublingual nitroglycerin this morning. He was found to be in atrial fibrillation with diffuse nonspecific ST-T changes. His baseline troponin T was elevated. The repeat troponin T revealed significant delta. Cardiology consult was requested for Further cardiac evaluation recommendations. This patient has no previous history for coronary disease, myocardial infarction or any documented congestive heart failure. No history for any cardiac arrhythmia. He was diagnosed with nephrotic syndrome of minimal-change disease in March 2022. He is being followedup by loan interviewer. He was having upper respiratory illness like symptoms couple of weeks ago. He was seen by his primary care provider and was placed on antibiotics. The symptoms were improving. But he started getting more shortness of breath and leg swelling and for that reason, was seen in the emergency room. He has no history for diabetes, hypertension or dyslipidemia. No history for smoking abuse or alcohol abuse. Has a history of hepatic liver and cirrhosis from this. Both his parents had heart problems in their 60s. Father of heart attack and the age of 68. 2 of his siblings also are known to have atherosclerotic heart disease, starting in their 60s and had to go through [facility] Review of Systems Narrative: CONSTITUTIONAL: No fever or chills. EYES: No blurring of vision or other visual disturbances lately. ENT: No hoarseness of voice, auditory disturbances or sore throat. CARDIOVASCULAR: As mentioned above. RESPIRATORY: No significant cough. GASTROINTESTINAL: No hematemesis or melena. GENITOURINARY: As mentioned above INTEGUMENTARY: No skin rashes or history of skin cancer. NEURO: No transient ischemic attacks or amaurosis. PSYCHIATRIC: No history of psychosis or major depression. HEMATOLOGIC: No bleeding disorders or significant anemia. ENDOCRINE: No history of polyuria or polydipsia. MUSCULOSKELETAL: No recent joint pain or swelling. ALLERGY/IMMUNOLOGY: As mentioned above. Medications/Allergies Home Medications ?Medication ?Instructions ?Recorded ?Confirmed ?Last Taken ?Type levetiracetam 500 mg tablet 500 mg PO BID 02/26/24 09/28/24 09/28/24 08:00 History amoxicillin 875 mg-potassium 1 tab PO Q12H 09/28/24 09/28/24 09/28/24 08:00 History clavulanate 125 mg tablet cholecalciferol (vitamin D3) 25 25 mcg PO DAILY 09/28/24 09/28/24 09/28/24 History mcg (1,000 unit) tablet (Vitamin D3) doxycycline hyclate 100 mg capsule 100 mg PO BID 09/28/24 09/28/24 09/28/24 History polyethylene glycol 3350 17 17 g PO DAILY 09/28/24 09/28/24 09/27/24 History gram/dose oral powder (Miralax) Allergies Allergy/AdvReac Type Severity Reaction Status Date / Time No Known Allergies Allergy Verified 02/26/24 15:40 Current Medications Generic Name Dose Route Start Last Admin Trade Name Freq PRN Reason Stop Dose Admin Aspirin 325 mg 10/02/24 02:40 10/02/24 02:50 Aspirin 325 Mg Tablet PO 325 mg DAILY KIMMIE Administration Atorvastatin Calcium 20 mg 09/29/24 21:00 10/01/24 20:09 Atorvastatin 40 Mg Tablet PO 20 mg BEDTIME KIMMIE Administration Docusate Sodium 100 mg 10/01/24 09:00 10/02/24 08:45 Docusate Sodium 100 Mg Capsule PO 100 mg BID KIMMIE Administration Ergocalciferol 50,000 unit 09/29/24 07:30 09/29/24 08:12 Ergocalciferol (Vitamin D2) 50,000 Unit Capsule PO 50,000 unit Q7D KIMMIE Administration Furosemide 40 mg 09/30/24 16:00 10/01/24 08:43 Furosemide 40 Mg Tablet PO 40 mg On Hold: 10/01/24 15:07 BID@08,16 KIMMIE Administration Albumin Human 25 g in 100 mls @ 60 mls/hr 10/01/24 15:45 10/02/24 01:12 Albumin IV Infused Q8H KIMMIE Infusion Heparin Sodium/Sodium Chloride 25,000 unit in 500 mls @ 0 mls/hr 10/02/24 05:30 10/02/24 05:40 Heparin Drip IV 13.98 unit/kg/hr CONT KIMMIE 26 mls/hr Protocol Administration Per Protocol Levetiracetam 500 mg 09/28/24 18:00 10/02/24 08:45 Levetiracetam 500 Mg Tablet PO 500 mg BID KIMMIE Administration Metoprolol Tartrate 25 mg 10/02/24 09:00 10/02/24 08:48 Metoprolol Tartrate 25 Mg Tablet PO 25 mg BID@0900,2100 KIMMIE Administration Morphine Sulfate 2 mg 10/02/24 01:49 10/02/24 02:56 Morphine 4 Mg/Ml Sdv 1 Ml IVP 2 mg Q4H PRN Administration SEVERE PAIN Nitroglycerin 0.4 mg 10/02/24 01:47 10/02/24 05:27 Nitroglycerin 0.4 Mg Sublingual Tablet SUBLINGUAL 0.4 mg Q5M PRN Administration CHEST PAIN Pantoprazole Sodium 40 mg 09/29/24 09:00 10/02/24 08:[address] 40 Mg Tablet PO 40 mg DAILY KIMMIE Administration Polyethylene Glycol 17 gm 09/29/24 09:00 10/02/24 08:44 Polyethylene Glycol 3350 Pkt 17 Gm PO 17 gm DAILY KIMMIE Administration Prednisone 60 mg 09/29/24 09:00 10/02/24 08:44 Prednisone 20 Mg Tablet PO 60 mg DAILY [facility]E Administration Trimethoprim/Sulfamethoxazole 1 tab 09/29/24 14:00 09/29/24 14:02 Sulfamethoxazole-Trimeth Ds 160-800 Mg Tablet PO 1 tab On Hold: 10/01/24 08:07 QMWF KIMMIE Administration Protocol PFSH Acute PFSH: Medical History History of CVA (cerebrovascular accident) Lacunar infarcts on MRI Ureteral calculus S/P extracorporeal shock wave therapy Surgical History Hx of shoulder surgery Family History Father Stroke Mother CAD (coronary artery disease) Social History Smoking and tobacco/nicotine status: never used tobacco/nicotine Alcohol intake: never Substance/Drug Use: never Additional social history: Retired accompanied by his brother Jey. Patient wants full code as discussed with myself and Jey 09/28/2024 with Zander Elliott MD Marital status: Current occupational status: retired Vitals/I&O/Wt Last Vital Signs Temp 97.8 F 10/02/24 07:24 Pulse 74 10/02/24 07:24 Resp 22 H 10/02/24 07:24 BP 139/81 10/02/24 07:24 Pulse Ox 95 10/02/24 07:24 O2 Del Method Nasal Cannula 10/02/24 07:24 O2 Flow Rate 3 10/02/24 04:00 10/01/24 10/02/24 10/02/24 22:59 06:59 14:59 Intake Total 160 / 280 100 / 380 Output Total 525 / 1175 250 / 1425 Balance -365 / -895 -150 / -1045 Weight last 48 hrs Weight 205 lb Weight 194 lb 14.4 oz Physical Exam Narrative: GENERAL: The patient is alert and oriented times three. Not in any acute distress. Looks very lethargic and chronically ill. HEENT: No significant pallor, icterus or lymphadenopathy.Oral cavity: There are no mucous membrane lesions. NECK: Trachea appears to be central. No masses noted. No JVD or thyromegaly appreciated. RESPIRATORY: Chest is symmetrical. No intercostals muscle retraction or any accessory muscle activation. There is no chest wall tenderness. Breath sounds are heard bilaterally. No rales or rhonchi heard. No evidence of any consolidation. BREASTS: Deferred. HEART: The heart sounds are normal. No S3 or S4. No significant murmurs. No pericardial rub ABDOMEN: No vessel pulsations or distention. No tenderness. No organomegaly appreciated. Bowel sounds are normally heard. : Deferred. RECTAL: Deferred. LYMPHATIC: No lymphadenopathy noted in the neck. EXTREMITIES: 1+ edema both lower extremities. No cyanosis. MUSCULOSKELETAL: No acute joint deformities or swelling SKIN: There are no significant rashes or ecchymosis NEUROPSYCHIATRIC: The patient is alert and oriented x3. Appears to be in a good mood. No tremors or rigidity noted. Data 10/02/24 05:46 10/02/24 03:25 Other Labs: Laboratory Last Values WBC 6.43 10^3/uL (3.29-11.43) 10/01/24 02:56 RBC 3.40 10^6/uL (3.85-5.65) L 10/01/24 02:56 Hgb 11.20 g/dL (11.27-16.99) L 10/01/24 02:56 Hct 32.4 % (37-53) L 10/01/24 02:56 MCV 95.3 fl (82-101) 10/01/24 02:56 MCH 32.9 pg (27-33) 10/01/24 02:56 MCHC 34.6 g/dL (30-55) 10/01/24 02:56 RDW 12.9 % (12.1-15.1) 10/01/24 02:56 Plt Count 156 10^3/cmm (157-399) L 10/02/24 05:46 MPV 10.1 fL (7.4-10.4) 10/01/24 02:56 Neut % (Auto) 92.3 % 10/01/24 02:56 Lymph % (Auto) 4.4 % 10/01/24 02:56 [place] % (Auto) 2.8 % 10/01/24 02:56 Eos % (Auto) 0.2 % 10/01/24 02:56 Baso % (Auto) 0.0 % 10/01/24 02:56 Neut # (Auto) 5.94 10^3/uL (1.8-7.7) 10/01/24 02:56 Lymph # (Auto) 0.3 10^3/uL (0.8-4.8) L 10/01/24 02:56 [place] # (Auto) 0.2 10^3/uL (0.2-0.9) 10/01/24 02:56 Eos # (Auto) 0.0 10^3/uL (0.0-0.8) 10/01/24 02:56 Baso # (Auto) 0.0 10^3/uL (0.0-0.1) 10/01/24 02:56 Nucleated RBC % (auto) 0 % 10/01/24 02:56 Nucleated RBCs # 0.0 /100WBC 10/01/24 02:56 Sodium 138 mmol/L (136-145) 10/02/24 03:25 Potassium 4.5 mmol/L (3.5-5.1) 10/02/24 03:25 Chloride 106 mmol/L (98-107) 10/02/24 03:25 Carbon Dioxide 18 mmol/L (22-29) L 10/02/24 03:25 Anion Gap 18.5 (5-19) 10/02/24 03:25 BUN 93 mg/dL (8-23) H* 10/02/24 03:25 Creatinine 2.0 mg/dL (0.7-1.2) H 10/02/24 03:25 GFR Calculation Not Reportable 10/02/24 03:25 Glucose 164 mg/dL (65-115) H 10/02/24 03:25 Calculated Osmolality 318 mOsm/kg (285-295) H 10/02/24 03:25 Lactic Acid 1.1 mmol/L (0.5-2.2) 09/28/24 12:09 Uric Acid 9.4 mg/dL (3.4-7.0) H 09/28/24 12:09 Calcium 7.9 mg/dL (8.5-10.5) L 10/02/24 03:25 Phosphorus 4.8 mg/dL (2.5-4.5) H 10/01/24 02:56 Magnesium 2.6 mg/dL (1.7-2.3) H 10/01/24 02:56 Total Bilirubin 0.2 mg/dL (0.15-1.2) 10/01/24 02:56 AST 29 U/L (0-40) 10/01/24 02:56 ALT 24 U/L (0-41) 10/01/24 02:56 Alkaline Phosphatase 160 U/L (40-130) H 10/01/24 02:56 Troponin T Baseline 105 ng/L (0-15) H* 10/02/24 02:06 Troponin T 120 Minute 134.1 ng/L (0-15) H 10/02/24 03:25 Delta Troponin T 29.1 ABS# (0-10) H* 10/02/24 03:25 C-Reactive Protein 10.0 mg/L (0.0-4.9) H 09/28/24 12:09 NT-Pro-B Natriuret Pep 2299 pg/mL (0-125) H 09/28/24 12:09 Total Protein 4.4 g/dL (6.6-8.7) L 10/01/24 02:56 Albumin 2.2 g/dL (3.5-5.2) L 10/01/24 02:56 Globulin 2.2 g/dL (1.3-4.6) 10/01/24 02:56 Triglycerides 212 mg/dL (0-150) H 09/28/24 12:09 Cholesterol 248 mg/dL (0-200) H 09/28/24 12:09 LDL Cholesterol, Calc 172 mg/dL (50-129) H 09/28/24 12:09 HDL Cholesterol 34 mg/dL (60-100) L 09/28/24 12:09 LDL/HDL Ratio 5.06 RATIO (0.00-3.22) H 09/28/24 12:09 Cholesterol/HDL Ratio 7.29 mg/dL (1.0-5.00) H 09/28/24 12:09 25-OH Vitamin D Total 6 ng/mL (30-100) L 09/29/24 03:25 TSH 2.24 uIU/mL (0.27-4.20) 09/28/24 12:09 PTH Intact 115.2 pg/mL (15-65) H 09/29/24 03:25 Calcium (PTH Intact) 7.1 mg/dL (8.5-10.5) L 09/29/24 03:25 Urine Color Yellow (Yellow) 09/28/24 13:13 Urine Appearance Cloudy (CLEAR) A 09/28/24 13:13 Urine pH 5.5 (5-7) 09/28/24 13:13 Ur Specific Media 1.017 (1.005-1.030) 09/28/24 13:13 Urine Protein 4+ (Negative) A 09/28/24 13:13 Urine Glucose (UA) Negative (Normal) 09/28/24 13:13 Urine Ketones Negative (Negative) 09/28/24 13:13 Urine Blood 2+ (Negative) A 09/28/24 13:13 Urine Nitrate Negative (Negative) 09/28/24 13:13 Urine Bilirubin Negative (Negative) 09/28/24 13:13 Urine Urobilinogen 0.2 mg/dL (Negative) 09/28/24 13:13 Ur Leukocyte Esterase Negative (Negative) 09/28/24 13:13 Urine RBC 0-4 /hpf (0-2) H 09/28/24 13:13 Urine WBC None /hpf (0-5) 09/28/24 13:13 Ur Squamous Epith Cells 0-4 /hpf (0-5) H 09/28/24 13:13 Amorphous Sediment Not Reportable 09/28/24 13:13 Urine Bacteria 2+ /hpf (NONE) H 09/28/24 13:13 Fine Granular Casts 0-4 /lpf H 09/28/24 13:13 Ur Random Microalbumin 467 ug/dL (0-20) H 09/28/24 13:13 U Random Total Protein > 880 mg/dL 10/01/24 18:26 Ur Random Sodium < 10 mmol/L 09/28/24 13:13 Ur Random Potassium 34 mmol/L 09/28/24 13:13 Ur Random Chloride 13 mmol/L 09/28/24 13:13 Urine Creatinine 92 mg/dL (39-259) 09/29/24 16:17 Microalb/Creat Ratio 3565 mg/dL (0-20) H 09/28/24 13:13 JOHN Screen Negative (NEGATIVE) 09/29/24 03:25 Anti-ds DNA IgG Ab <1 IU/mL 09/29/24 03:25 Free [place] Light Chains 51.5 mg/L (3.3-19.4) H 09/29/24 03:25 Free [place] Light Chain 128.3 mg/L (5.7-26.3) H 09/29/24 03:25 Free [place]/Lambda Ratio 0.40 (0.26-1.65) 09/29/24 03:25 Hep Bs Antigen Non-reactive (Nonreactive) 09/28/24 12:09 Hep Bs Antibody 16.6 (11.5-1000) 09/28/24 12:09 Hep B Core Total Ab Non-reactive (Nonreactive) 09/28/24 12:09 Hepatitis C Antibody Non-reactive (Nonreactive) 09/28/24 12:09 Micro: Microbiology 09/29/24 21:47 Gram Stain - Final Sputum - Expectorated Sputum Sputum Culture - Preliminary Other data: Echocardiogram from 2022 Normal left ventricular size and systolic function, EF 64 %. No regional wall motion abnormalities. Grade I/IV diastolic dysfunction (abnormal relaxation filling pattern), normal to mildly elevated filling pressures. Thickened mitral valve. Mild mitral valve regurgitation. Mildly increased left atrial size. Mild aortic valve regurgitation. Trace tricuspid valve regurgitation. Estimated pulmonary artery peak systolic pressure 24 mm of Hg There is no pericardial effusion. There are no intracardiac masses. No similar previous studies are available for comparison A&P Assessment and plan 1. Elevated troponin: The elevated troponin T may suggest a non-ST elevation myocardial infarction. A type II AR cannot be excluded. In view of the EKG changes, patient's symptom of chest pain and the family history, most likely he may have underlying coronary disease and the current features may suggest a non-ST elevation myocardial infarction. At this point, the patient may be treated with heparin, nitrates, beta-ezequiel, aspirin and Plavix. An echocardiogram would be helpful to evaluate the LV function Patient may benefit from a cardiac catheterization. However because of his chronic kidney disease, he is at high risk for contrast-induced nephropathy.. This was briefly discussed with the patient and family, she understood well. 2. Atrial fibrillation with rapid ventricular response: Patient may continue on the medications as above. 3. Nephrotic syndrome: Continue on the current management. Careful IV diuresis. 4. Abnormal EKG: May suggest underlying coronary ischemia. Plan: After reviewing the echocardiogram, further recommendations will be made. IV heparin Beta-ezequiel Aspirin Plavix Thank for the opportunity to evaluate this patient and make these recommendations PDMP PDMP Reviewed: Not Reviewed Consult Attestations Medical Necessity Statement: Patient requires continued hospital stay for close monitoring and further management Coding Level of Care Code 33856 Diagnoses Elevated troponin R79.89 Atrial fibrillation with rapid ventricular response I48.91 Nephrotic syndrome N04.9 Abnormal EKG R94.31
[2024-10-02 12:05] LABS: ANCA Screen NEGATIVE (NEGATIVE)
--- NOTE | 2024-10-02 12:45 | P.PN_ITS ---
Subjective 2 Subjective: I have been called to evaluate and have spoken with patient, ex- Margo Mora, brother Jey and [id number] Mayte at bedside as well as Dr. Charley Blackwell and Dr. Mcleod. Patient suffered NSTEMI yesterday with troponin 105 rising to 134. Family voiced concern and desire for patient be transferred to [facility] but [facility] has told me yesterday and today that they have no beds for excepting patient. Patient has had his echo completed and this is being evaluated by Dr. Blackwell. The patient has brought up pink sputum some thin some thick and has known nephrotic syndrome and now anticoagulated for NSTEMI in the setting of renal failure on our weight-based protocol. First PTT result not yet back and I have ordered a stat PTT. Mayte states she is concerned that previously when patient was here with nephrotic syndrome he gained lots of weight and we were slow to diagnose this and then the patient did much better at [facility]. I discussed with her that I am willing to transfer the patient and that if bed was available I will transfer him to [facility] but in this current situation we would have to look for another facility. I also discussed that Dr. Mcleod of the corporate fitness program coordinator and Dr. Blackwell and Dr. Whitehead have my confidence and I think the cardiac event was new and unexpected and the patient had no history of coronary artery disease and had denied chest pain shortness of breath cough or wheezing at the time of admission. Medications: Reviewed: Yes Vitals/I&O/Wt Last Vital Signs Temp 97.8 F 10/02/24 07:24 Pulse 77 10/02/24 12:41 Resp 23 H 10/02/24 12:00 BP 139/90 10/02/24 12:00 Pulse Ox 95 10/02/24 12:41 O2 Del Method Nasal Cannula 10/02/24 07:24 O2 Flow Rate 3 10/02/24 04:00 FiO2 40 10/02/24 12:41 10/01/24 10/02/24 10/02/24 22:59 06:59 14:59 Intake Total 160 / 280 100 / 380 100 / 100 Output Total 525 / 1175 250 / 1425 Balance -365 / -895 -150 / -1045 100 / 100 Weight last 48 hrs Weight 92.986 kg Weight 88.405 kg Physical Exam 2 Narrative: General well-developed male tachypneic appears lethargic and uncomfortable. CV regular rate and rhythm Lungs crackles heard to the third of the lungs bilaterally with prolonged x-ray phase Expectoration shows thin bloody secretions but also some thick mucousy secretions. Calves trace to 1 edema arms 2+ edema Data 10/02/24 05:46 10/02/24 03:25 Micro: Microbiology 09/29/24 21:47 Gram Stain - Final Sputum - Expectorated Sputum Sputum Culture - Final A&P Assessment and plan 1. Hemoptysis: I think this represents pulmonary edema and the patient will be diuresed as discussed with Dr. Mcleod, started on BiPAP and sent to the ICU for closer monitoring. Elevate head of bed to 30 degrees hold feeding and heparin until PTT has been 2. NSTEMI (non-ST elevated myocardial infarction): Chest pain 7/10 relieved by nitroglycerin and troponin 100 giancarlo to 134 at 2 hours. EKG this morning sinus rhythm and back to baseline with nonspecific ST-T wave changes. At 304 he had atrial fibs with inferolateral ST-T wave depression 1 box to 1-1/2 box in leads I, II, V4, V5 and V6 Dr. Blackwell has seen the patient and plan is for echocardiogram and if significant abnormality will recommend cardiac cath but if no significant wall motion abnormality or low EF would likely delay due to risk of contrast-induced nephropathy 3. Nephrotic syndrome: Continue treatment with prednisone and albumin and furosemide for diuresis. Edema is decreased but weight somehow increased to 92.9 despite negative fluid balance. 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 Patient responded well to diuretics furosemide and prednisone steroid Proteinuria 09/29/2024 worse at 890 versus 594 on 09/28/2024. On 10/01/2024 measured 880 mg/dL 5. Anasarca: Improved. Elevate forearms on pillows when not walking 6. Hypoalbuminemia: Albumin still 2.2 with infusions 7. Low vitamin D level: Will continue replacement. Calcium is low PTH compensatory elevated 8. Constipation: Add docusate to MiraLAX and will give a dose of lactulose today PDMP PDMP Reviewed: Not Reviewed Attestations 2 Medical Necessity Statement*: Patient was transferred to the ICU in guarded condition and will require greater than 2 midnights in the hospital Coding Level of Care Code Critical Care >/= 30 minutes Diagnoses Hemoptysis R04.2 NSTEMI (non-ST elevated myocardial infarction) I21.4 Nephrotic syndrome N04.9 Minimal change disease N05.0 Anasarca R60.1 Hypoalbuminemia E88.09 Low vitamin D level R79.89 Constipation K59.00 Time Spent (min) 60
--- NOTE | 2024-10-02 12:56 | ECG_ITS ---
[employer] Test Date: 2024-10-02 Pat Name: Zurdo Mora Department: Room: [facility] Gender: Male Web Master: : 1950 Requested By: Zander Edwards Order Number: [id number] Juliocesar MD: Ana Blackwell M.D. Measurements Intervals [place] Rate: 76 P: 81 SC: 197 QRS: 46 QRSD: 92 T: 49 QT: 381 QTc: 430 Interpretive Statements SINUS RHYTHM WITH OCCASIONAL VENTRICULAR PREMATURE COMPLEXES WITH OCCASIONAL SUPRAVENTRICULAR PREMATURE COMPLEXES MODERATE ST DEPRESSION [0.05+ mV ST DEPRESSION] Compared to ECG 10/02/2024 07:35:53 No significant changes Electronically Signed On 10-02-2024 14:04:23 CDT by Ana Blackwell M.D. [email or web address]
[2024-10-02] MEDS: FUROsemide 10 mg/mL SDV 4mL 40 MG IVP (13:06)
[2024-10-02 13:35] LABS: Calcium 8.0 mg/dL (8.5-10.5); Carbon Dioxide 15 mmol/L (22-29); Chloride 105 mmol/L (98-107); Creatinine Clr Calc Pharmacy 42.9293; Glucose 129 mg/dL (65-115); Osmolality Calculated 313 mOsm/kg (285-295); Sodium 137 mmol/L (136-145)
[2024-10-02 13:59] LABS: Glomerular Bsmt Membrane IGG <1.0 AI
[2024-10-02 14:02] LABS: Anion Gap 21.2 (5-19); Blood Urea Nitrogen 88 mg/dL (8-23); Potassium 4.2 mmol/L (3.5-5.1); Troponin 5 6HR 1616 ng/L (0-15); Troponin 5 6HR Delta 1511 ng/L (0-12)
--- NOTE | 2024-10-02 14:15 | PC.NURSE ---
Dr. Elliott was made aware of the elevated troponins. No new orders were received.
[2024-10-02 14:26] LABS: Partial Thromboplastin Time > 250.0 SECONDS (23.9-36.7)
[2024-10-02] MEDS: piperacillin-tazobactam 3.375 GM in sodium chloride 0.9% (plus) 50 ML IV (14:48)
[2024-10-02 16:14] LABS: Troponin T (5th) Once 1990 ng/L (0-15)
--- NOTE | 2024-10-02 16:28 | PM.PN ---
Subjective Subjective: events noted Pt had suffered NSTEMI with elevated troponin yesterday and further workup with echocardiogram has revealed severe mitral regurgitation as well as apical hypokinesis. Patient complaining of shortness of breath. Also noted to have hemoptysis. Medications: Reviewed: Yes Vitals/I&O/Wt Last Vital Signs Temp 97.8 F 10/02/24 07:24 Pulse 75 10/02/24 16:15 Resp 23 H 10/02/24 16:15 BP 133/81 10/02/24 16:15 Pulse Ox 97 10/02/24 16:15 O2 Del Method BiPAP 10/02/24 16:15 O2 Flow Rate 3 10/02/24 04:00 FiO2 40 10/02/24 16:15 10/02/24 10/02/24 10/02/24 06:59 14:59 22:59 Intake Total 100 / 380 100 / 100 Output Total 250 / 1425 Balance -150 / -1045 100 / 100 Weight last 48 hrs Weight 92.986 kg Weight 88.405 kg Physical Exam Narrative: Vital signs noted. Patient is comfortable, lying in bed. HEENT normocephalic atraumatic. Crackles bilaterally per report Heart regular positive S1-S2. Abdomen soft, nontender, less distended Extremities bilateral edema improving Neuro awake alert oriented x 2+. He is interactive and follows commands Seen and examined using audiovisual equipment with the aid of a nurse. Data 10/02/24 05:46 10/02/24 12:30 Micro: Microbiology 09/29/24 21:47 Gram Stain - Final Sputum - Expectorated Sputum Sputum Culture - Final A&P Assessment and plan 1. Nephrotic syndrome: 74-year-old man history of nephrotic syndrome with acute kidney injury in April 2022 at that time he had a renal biopsy at [facility] -which revealed minimal-change disease.The patient improved with a 3-month course of prednisone.The Patient has been doing well until the last 2 weeks. And now the patient comes with recurrent acute kidney injury hyponatremia severe anasarca and what appears to be nephrotic syndrome. 1. Acute kidney injury: with volume overload . Presumed secondary to minimal-change disease flare, - Resuming IV diuretics and continue IV albumin -Patient now has NSTEMI and may require [facility] , plan to transfer to [facility] for evaluation of severe mitral regurg and need for left heart cath - on prednisone 60 mg a day, Protonix for GI prophylaxis Urine studies have improved microalbumin creatinine ratio of 3565. And urine protein creatinine ratio of approximately 5.5 g proteinuria please note that 2 years ago he had a 24 hour urine protein 9.3 g. -SPEP is pending Patient has hyperlipidemia with an LDL of 172 we will use statin. [id number] DNA is negative Hepatitis serologies are negative Once renal function stabilizes would like to start an NIRAJ inhibitor or ARB. 2. NSTEMI - cardiology following 3. Severe Mitral regurg , awaiting transfer to [facility] for further mx 3. Hyponatremia patient likely has effective intravascular volume depletion , improved -urine random sodium was less than 10 urine chloride was low at 13. 4. AG metabolic acidosis , will add bicitra Hyperphosphatemia improving. Anemia with monitor his hemoglobin is dropped from 14.9-11.6 hopefully stabilizing at 11. Hyperkalemia: Low K diet and status post kayexylate The patient was seen examined using audiovisual equipment. The patient consented to telehealth. Plan: See above -will give albumin, furosemide, Lipitor, vitamin D and low-dose ARB. PDMP PDMP Reviewed: Not Reviewed Attestations Medical Necessity Statement*: per milton Coding Level of Care Code Acute Code for [facility] Diagnoses Nephrotic syndrome N04.9
--- NOTE | 2024-10-02 16:50 | PC.NURSE ---
Dr. Mcleod ordered to initiate a lasix drip at 10 mg/hr.
[2024-10-02] MEDS: FUROsemide 200 MG in sodium chloride 0.9% (100 ml) 80 ML IV (17:14)
[2024-10-02 17:30] LABS: Partial Thromboplastin Time 45.5 SECONDS (23.9-36.7)
--- NOTE | 2024-10-02 17:32 | P.TS_ITS ---
Transfer Summary Providers Date of Admission: 09/28/24 14:31 Date of Discharge/Transfer: 10/02/24 Attending Provider at Admission: Zander Elliott MD Attending Provider at Transfer: Zander Elliott MD Consults: Cardiology Dr. Ana Blackwell MD and Nephrology Dr. Mcleod Primary Care Provider: Gregory Castle MD Transfer Plans: Anticipated date of transfer: 10/02/24 . Diagnoses at Discharge Discharge Diagnosis 1. 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 NSTEMI (non-ST elevated myocardial infarction): Details from hospital stay: Patient with inferolateral ST-T wave changes 1-1/2 boxes and leads I, II, V4 V5 and V6 but dynamic and back to normal cardiac enzymes started at 100 then 2 hours at 0156 hrs. at 1616 and now risen to 1990 4. Atrial fibrillation with rapid ventricular response: Details from hospital stay: Was transient and controlled with beta-ezequiel 5. Hemoptysis: Details from hospital stay: Secondary to pulmonary edema mostly thin but with some thick mucus so was started on Zosyn for possible aspiration. sputum sputum showed many white cells moderate epithelial cells few gram-positive cocci in pairs blood cultures negative. I suspect the patient does not have infection 6. Low vitamin D level: Details from hospital stay: Vitamin D level was 6 with the lower limit being 30 started on replacement 7. Mitral valve insufficiency: Details from hospital stay: Severe mitral regurg and likely need to be addressed by cardiothoracic surgery Reason for Visit Reason for Visit fluid build up, dr castle sent Brief History: Zurdo Mora is a 74 year old male who was diagnosed with minimal will change disease on biopsy April 2022. At that time he again 43 pounds of fluid and was treated with steroids and Lasix. He remained in remission but follows up with Shannan Ramos nephrology [employer] in [place]. He was doing so well but actually his next appointment is not until November. Last patient was having yellow phlegm but no fever got treated with antibiotics and feels much better symptoms started within the last week or so. This resulted in swelling prompting evaluation in presentation to the emergency department today. His history is given in part by himself and he tells me that he is put on about 20 pounds of fluid. His brother Jey is present at bedside 18 months younger and helps the patient as the patient has developed dementia with memory loss of short-term memory Jey has lab from Dr. Castle 09/23/2024 showing glucose 121 BUN 63 creatinine 1.9 GFR 37 white count 17 hematocrit 47 platelets 240 MCV 101 Total protein 5 albumin 2.2 bilirubin 0.4 AST 58 ALT 42 calcium 8.3 sodium 129 potassium 4.9 chloride 101 CO2 25 Osmo 285 urine pH 5.5 protein 3+ nitrites and leukocyte Estrace negative white cells 25-30 red cells 15-20 epithelials none with 8-10 hyaline casts Patient denies chest pain he denies dysuria hematuria or hesitancy patient denies shortness of breath cough wheezing currently but states he did have that on before treatment Neuro no history of seizures or strokes malignancy history negative Past medical history fatty liver, dementia, minimal-change disease of the kidneys Social history 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 Creatinine varied between 1.7 and 2.4. We held Bactrim due to that. Patient diuresed and was improving with decrease crackles in the lungs decreased leg e richard and decreasing arm edema. I was considering possibility of him going home to continue with prednisone for minimal-change disease. He had minimal-change disease 2 years ago April 2022 treated with 3 months of prednisone and went into remission. Last night patient had chest pain, transient A-fib and the chest pain was relieved by nitroglycerin. Cardiac enzymes started at 100 giancarlo to 150 at 2 hours and then 1600 at 6 hours. They have continued to rise to 1900. We have been discussing his options with cardiology and nephrology and we feel he is at risk for needing dialysis with intervention for suspected coronary occlusion but also that he needs mitral valve repair as he has had pulmonary edema. Patient is stabilized on BiPAP 27/09 with 40% FiO2 rate 10. He has been accepted by Dr. Walker the manager lvn and Dr. Toscano the hospitalist. I spoke with Jenna Sinclair hospitalist JASON. Patient will transfer by ground ACLS. Family has been updated Physical Exam Narrative: General well-developed well-nourished male in no acute cardiopulmonary distress on BiPAP. Patient states he is feeling much better CV regular rate and rhythm Lungs good air movement trace crackles TS Data Studies Completed and Pending Pending at discharge Category Date Time Status BMP [Basic Metabolic Panel] AM LABS Lab 10/03/24 04:00 Ordered BMP [Basic Metabolic Panel] AM LABS Lab 10/04/24 04:00 Ordered Blood Culture Stat Lab 09/28/24 13:40 Results Immunofixation Serum Routine Lab 09/28/24 15:06 Received PTT [Partial Thromboplastin Time] Stat Lab 10/02/24 12:29 Ordered PTT [Partial Thromboplastin Time] Timed Lab 10/02/24 17:08 Received Phospholipase A2 Receptor AB Routine Lab 09/28/24 15:06 Received Platelet Count Q2D Lab 10/04/24 04:00 Ordered Platelet Count Q2D Lab 10/06/24 04:00 Ordered Serum Protien Electrophoresis [Total Protein Lab 09/28/24 15:06 Results Electrophoresis] Routine Sputum Culture and Gram Stain Stat Lab 10/02/24 12:43 Uncollected Completed Studies During Hospitalization Category Date Time Status CXRP [XR chest 1V portable [id number]] Routine Exams 10/02/24 01:48 Completed XR chest 1V portable [id number] Stat Exams 09/28/24 11:34 Completed CV. echo complete* [id number] Routine Ultrasound 10/02/24 06:23 Completed US renal BI* [id number] Routine Ultrasound 09/28/24 15:06 Completed Laboratory Last Values WBC 6.43 10^3/uL (3.29-11.43) 10/01/24 02:56 RBC 3.40 10^6/uL (3.85-5.65) L 10/01/24 02:56 Hgb 11.20 g/dL (11.27-16.99) L 10/01/24 02:56 Hct 32.4 % (37-53) L 10/01/24 02:56 MCV 95.3 fl (82-101) 10/01/24 02:56 MCH 32.9 pg (27-33) 10/01/24 02:56 MCHC 34.6 g/dL (30-55) 10/01/24 02:56 RDW 12.9 % (12.1-15.1) 10/01/24 02:56 Plt Count 156 10^3/cmm (157-399) L 10/02/24 05:46 MPV 10.1 fL (7.4-10.4) 10/01/24 02:56 Neut % (Auto) 92.3 % 10/01/24 02:56 Lymph % (Auto) 4.4 % 10/01/24 02:56 [place] % (Auto) 2.8 % 10/01/24 02:56 Eos % (Auto) 0.2 % 10/01/24 02:56 Baso % (Auto) 0.0 % 10/01/24 02:56 Neut # (Auto) 5.94 10^3/uL (1.8-7.7) 10/01/24 02:56 Lymph # (Auto) 0.3 10^3/uL (0.8-4.8) L 10/01/24 02:56 [place] # (Auto) 0.2 10^3/uL (0.2-0.9) 10/01/24 02:56 Eos # (Auto) 0.0 10^3/uL (0.0-0.8) 10/01/24 02:56 Baso # (Auto) 0.0 10^3/uL (0.0-0.1) 10/01/24 02:56 Nucleated RBC % (auto) 0 % 10/01/24 02:56 Nucleated RBCs # 0.0 /100WBC 10/01/24 02:56 APTT > 250.0 SECONDS (23.9-36.7) H* 10/02/24 12:30 Sodium 137 mmol/L (136-145) 10/02/24 12:30 Potassium 4.2 mmol/L (3.5-5.1) 10/02/24 12:30 Chloride 105 mmol/L (98-107) 10/02/24 12:30 Carbon Dioxide 15 mmol/L (22-29) L 10/02/24 12:30 Anion Gap 21.2 (5-19) H 10/02/24 12:30 BUN 88 mg/dL (8-23) H* 10/02/24 12:30 Creatinine 1.7 mg/dL (0.7-1.2) H 10/02/24 12:30 GFR Calculation Not Reportable 10/02/24 12:30 Glucose 129 mg/dL (65-115) H 10/02/24 12:30 Calculated Osmolality 313 mOsm/kg (285-295) H 10/02/24 12:30 Lactic Acid 1.1 mmol/L (0.5-2.2) 09/28/24 12:09 Uric Acid 9.4 mg/dL (3.4-7.0) H 09/28/24 12:09 Calcium 8.0 mg/dL (8.5-10.5) L 10/02/24 12:30 Phosphorus 4.8 mg/dL (2.5-4.5) H 10/01/24 02:56 Magnesium 2.6 mg/dL (1.7-2.3) H 10/01/24 02:56 Total Bilirubin 0.2 mg/dL (0.15-1.2) 10/01/24 02:56 AST 29 U/L (0-40) 10/01/24 02:56 ALT 24 U/L (0-41) 10/01/24 02:56 Alkaline Phosphatase 160 U/L (40-130) H 10/01/24 02:56 Troponin T 5th Gen ng/L 1990 ng/L (0-15) H* 10/02/24 15:13 Troponin T Baseline 105 ng/L (0-15) H* 10/02/24 02:06 Troponin T 120 Minute 134.1 ng/L (0-15) H 10/02/24 03:25 Delta Troponin T 29.1 ABS# (0-10) H* 10/02/24 03:25 Troponin T Hi Sens 6Hr 1616 ng/L (0-15) H 10/02/24 12:30 Troponin T Hi Sens 6Hr Delta 1511 ng/L (0-12) H* 10/02/24 12:30 C-Reactive Protein 10.0 mg/L (0.0-4.9) H 09/28/24 12:09 NT-Pro-B Natriuret Pep 2299 pg/mL (0-125) H 09/28/24 12:09 Total Protein 4.4 g/dL (6.6-8.7) L 10/01/24 02:56 Albumin 2.2 g/dL (3.5-5.2) L 10/01/24 02:56 Globulin 2.2 g/dL (1.3-4.6) 10/01/24 02:56 Triglycerides 212 mg/dL (0-150) H 09/28/24 12:09 Cholesterol 248 mg/dL (0-200) H 09/28/24 12:09 LDL Cholesterol, Calc 172 mg/dL (50-129) H 09/28/24 12:09 HDL Cholesterol 34 mg/dL (60-100) L 09/28/24 12:09 LDL/HDL Ratio 5.06 RATIO (0.00-3.22) H 09/28/24 12:09 Cholesterol/HDL Ratio 7.29 mg/dL (1.0-5.00) H 09/28/24 12:09 25-OH Vitamin D Total 6 ng/mL (30-100) L 09/29/24 03:25 TSH 2.24 uIU/mL (0.27-4.20) 09/28/24 12:09 PTH Intact 115.2 pg/mL (15-65) H 09/29/24 03:25 Calcium (PTH Intact) 7.1 mg/dL (8.5-10.5) L 09/29/24 03:25 Urine Color Yellow (Yellow) 09/28/24 13:13 Urine Appearance Cloudy (CLEAR) A 09/28/24 13:13 Urine pH 5.5 (5-7) 09/28/24 13:13 Ur Specific Victor 1.017 (1.005-1.030) 09/28/24 13:13 Urine Protein 4+ (Negative) A 09/28/24 13:13 Urine Glucose (UA) Negative (Normal) 09/28/24 13:13 Urine Ketones Negative (Negative) 09/28/24 13:13 Urine Blood 2+ (Negative) A 09/28/24 13:13 Urine Nitrate Negative (Negative) 09/28/24 13:13 Urine Bilirubin Negative (Negative) 09/28/24 13:13 Urine Urobilinogen 0.2 mg/dL (Negative) 09/28/24 13:13 Ur Leukocyte Esterase Negative (Negative) 09/28/24 13:13 Urine RBC 0-4 /hpf (0-2) H 09/28/24 13:13 Urine WBC None /hpf (0-5) 09/28/24 13:13 Ur Squamous Epith Cells 0-4 /hpf (0-5) H 09/28/24 13:13 Amorphous Sediment Not Reportable 09/28/24 13:13 Urine Bacteria 2+ /hpf (NONE) H 09/28/24 13:13 Fine Granular Casts 0-4 /lpf H 09/28/24 13:13 Ur Random Microalbumin 467 ug/dL (0-20) H 09/28/24 13:13 U Random Total Protein > 880 mg/dL 10/01/24 18:26 Ur Random Sodium < 10 mmol/L 09/28/24 13:13 Ur Random Potassium 34 mmol/L 09/28/24 13:13 Ur Random Chloride 13 mmol/L 09/28/24 13:13 Urine Creatinine 92 mg/dL (39-259) 09/29/24 16:17 Microalb/Creat Ratio 3565 mg/dL (0-20) H 09/28/24 13:13 JOHN Screen Negative (NEGATIVE) 09/29/24 03:25 ANCA Screen Negative (NEGATIVE) 09/29/24 03:25 ANCA Titer Not Reportable 09/29/24 03:25 Anti-ds DNA IgG Ab <1 IU/mL 09/29/24 03:25 Glomerular Base Mem IgG <1.0 AI 09/29/24 03:25 Free [place] Light Chains 51.5 mg/L (3.3-19.4) H 09/29/24 03:25 Free Lambda Light Chain 128.3 mg/L (5.7-26.3) H 09/29/24 03:25 Free [place]/Lambda Ratio 0.40 (0.26-1.65) 09/29/24 03:25 Hep Bs Antigen Non-reactive (Nonreactive) 09/28/24 12:09 Hep Bs Antibody 16.6 (11.5-1000) 09/28/24 12:09 Hep B Core Total Ab Non-reactive (Nonreactive) 09/28/24 12:09 Hepatitis C Antibody Non-reactive (Nonreactive) 09/28/24 12:09 Radiology Impressions Renal Ultrasound 09/28/24 15:06 IMPRESSION: 1. Normal size kidneys with no obstruction. 2. Stable RIGHT parapelvic cyst since 05/04/2022. 3. Small amount of ascites. Chest X-Ray 10/02/24 01:48 IMPRESSION: Central vascular congestion with possible pulmonary edema. Bibasilar airspace disease could reflect atelectasis or infiltrate. Imaging Echo: Radiologist's impression: Normal LV size with diminished ejection fraction of around 45 to 50% visual. Hypokinetic LV apex. Mildly increased right atrial size. Moderately increased left atrial size. Severe mitral regurgitation. Thickened aortic valve. Mild aortic valve regurgitation. Mild tricuspid valve regurgitation. There is no pericardial effusion. There are no intracardiac masses. Compared to the study from 05/05/2022, the wall motion abnormality is new. There is significant worsening of the mitral regurgitation-from mild MR to severe MR Recent Clincial Data Last Vital Signs Temp 97.8 F 10/02/24 07:24 Pulse 75 10/02/24 16:15 Resp 23 H 10/02/24 16:15 BP 133/81 10/02/24 16:15 Pulse Ox 97 10/02/24 16:15 O2 Del Method BiPAP 10/02/24 16:15 O2 Flow Rate 3 10/02/24 04:00 FiO2 40 10/02/24 16:15 Vital Signs Temp Pulse Resp BP Pulse Ox O2 Del Method FiO2 10/02/24 16:15 75 23 H 133/81 97 BiPAP 40 10/02/24 15:22 94 40 10/02/24 14:30 71 10/02/24 14:15 40 10/02/24 13:42 71 10/02/24 12:41 77 95 40 10/02/24 12:32 82 97 50 10/02/24 12:00 86 23 H 139/90 95 10/02/24 07:24 97.8 F 74 22 H 139/81 95 Nasal Cannula 10/02/24 06:00 83 Intake & Output/Weight 09/30/24 10/01/24 10/02/24 10/03/24 06:59 06:59 06:59 06:59 Intake Total 540 / 540 485 / 485 380 / 380 200 / 200 Output Total 1075 / 1075 1170 / 1170 1425 / 1425 850 / 850 Balance -535 / -535 -685 / -685 -1045 / -1045 -650 / -650 Weight 89.721 kg 88.405 kg 92.986 kg Vitals Last Vital Signs Temp 97.8 F 10/02/24 07:24 Pulse 75 10/02/24 16:15 Resp 23 H 10/02/24 16:15 BP 133/81 10/02/24 16:15 Pulse Ox 97 10/02/24 16:15 O2 Del Method BiPAP 10/02/24 16:15 O2 Flow Rate 3 10/02/24 04:00 FiO2 40 10/02/24 16:15 TS Medications Medications Aspirin (Aspirin 325 Mg Tablet) 325 mg PO DAILY [facility] Last Admin: 10/02/24 02:50 Dose: 325 mg Atorvastatin Calcium (Atorvastatin 40 Mg Tablet) 20 mg PO BEDTIME KIMMIE Last Admin: 10/01/24 20:09 Dose: 20 mg Clopidogrel Bisulfate (Clopidogrel 75 Mg Tablet) 75 mg PO DAILY KIMMIE Docusate Sodium (Docusate Sodium 100 Mg Capsule) 100 mg PO BID KIMMIE Last Admin: 10/02/24 17:01 Dose: 100 mg Ergocalciferol (Ergocalciferol (Vitamin D2) 50,000 Unit Capsule) 50,000 unit PO Q7D KIMMIE Last Admin: 09/29/24 08:12 Dose: 50,000 unit Furosemide (Furosemide 10 Mg/Ml Sdv 4ml) 40 mg IVP Q8H KIMMIE Last Admin: 10/02/24 13:06 Dose: 40 mg Heparin Sodium (Porcine) (Heparin 5,000 Unit/Ml Inj 1 Ml) 0 unit IVP PRN PRN; Protocol PRN Reason: Heparin Weight Based Protocol -Subsequent Bolus Albumin Human (Albumin) 25 g in 100 mls @ 60 mls/hr IV Q8H KIMMIE Last Infusion: 10/02/24 17:02 Dose: Infused Heparin Sodium/Sodium Chloride (Heparin Drip) 25,000 unit in 500 mls @ 0 mls/hr IV CONT KIMMIE; Protocol On Hold: 10/02/24 12:45 Last Admin: 10/02/24 05:40 Dose: 13.98 unit/kg/hr, 26 mls/hr Piperacillin Sod/Tazobactam (Sod 3.375 gm/ Sodium Chloride) 50 mls @ 12.5 mls/hr IV Q8H KIMMIE; Protocol Last Admin: 10/02/24 14:48 Dose: 12.5 mls/hr Furosemide 200 mg/ Sodium (Chloride) 100 mls @ 0 mls/hr IV .Q0M KIMMIE; Protocol Last Admin: 10/02/24 17:14 Dose: 10 mg/hr, 5 mls/hr Levetiracetam (Levetiracetam 500 Mg Tablet) 500 mg PO BID [facility] Last Admin: 10/02/24 17:01 Dose: 500 mg Metoprolol Tartrate (Metoprolol Tartrate 25 Mg Tablet) 25 mg PO BID@0900,2100 [facility] Last Admin: 10/02/24 08:48 Dose: 25 mg Morphine Sulfate (Morphine 4 Mg/Ml Sdv 1 Ml) 2 mg IVP Q4H PRN PRN Reason: SEVERE PAIN Last Admin: 10/02/24 02:56 Dose: 2 mg Nitroglycerin (Nitroglycerin 0.4 Mg Sublingual Tablet) 0.4 mg SUBLINGUAL Q5M PRN PRN Reason: CHEST PAIN Last Admin: 10/02/24 12:15 Dose: 0.4 mg Pantoprazole Sodium (Pantoprazole Dr 40 Mg Tablet) 40 mg PO DAILY [facility] Last Admin: 10/02/24 08:45 Dose: 40 mg Polyethylene Glycol (Polyethylene Glycol 3350 Pkt 17 Gm) 17 gm PO DAILY [facility] Last Admin: 10/02/24 08:44 Dose: 17 gm Prednisone (Prednisone 20 Mg Tablet) 60 mg PO DAILY [facility] Last Admin: 10/02/24 08:44 Dose: 60 mg Sodium Polystyrene Sulfonate (Sodium Polystyrene Sulfonate 15 Gm/60 Ml Btl) 15 gm PO DAILY [facility] Last Admin: 10/02/24 09:17 Dose: Not Given Discontinued Medications Clopidogrel Bisulfate (Clopidogrel 300 Mg Tablet) 300 mg PO ONCE ONE Stop: 10/02/24 10:27 Last Admin: 10/02/24 11:31 Dose: 300 mg Furosemide (Furosemide 10 Mg/Ml Sdv 4ml) 40 mg IVP Q12H [facility] Last Admin: 09/30/24 04:04 Dose: 40 mg Furosemide (Furosemide 40 Mg Tablet) 40 mg PO BID@08,16 [facility] Last Admin: 10/01/24 08:43 Dose: 40 mg Furosemide (Furosemide 40 Mg Tablet) 40 mg PO DAILY [facility] Heparin Sodium (Porcine) (Heparin 5,000 Unit/Ml Inj 1 Ml) 5,000 unit SUBCUT Q12H [facility] Last Admin: 10/01/24 18:25 Dose: 5,000 unit Heparin Sodium (Porcine) (Heparin 5,000 Unit/Ml Inj 1 Ml) 4,600 unit IVP ONCE ONE; Protocol Stop: 10/02/24 05:17 Last Admin: 10/02/24 05:44 Dose: 4,600 unit Sodium Chloride (Sodium Chloride 0.9%) 2,694.33 mls @ 2,694.33 mls/hr 30 ml/kg infuse over 1 hr (2694.33 ml) IV .Q1H ONE Stop: 09/28/24 14:03 Last Infusion: 09/28/24 19:11 Dose: Infused Albumin Human (Albumin) 25 g in 100 mls @ 60 mls/hr IV BID [facility] Last Infusion: 09/30/24 10:59 Dose: Infused Albumin Human (Albumin) 25 g in 100 mls @ 60 mls/hr IV Q8H [facility] Last Admin: 10/01/24 19:27 Dose: Not Given Sodium Polystyrene Sulfonate (Sodium Polystyrene Sulfonate 15 Gm/60 Ml Btl) 15 gm PO Q6H [facility] Last Admin: 10/02/24 08:44 Dose: 15 gm Trimethoprim/Sulfamethoxazole (Sulfamethoxazole-Trimeth Ds 160-800 Mg Tablet) 1 tab PO QMWF [facility]; Protocol Last Admin: 09/29/24 14:02 Dose: 1 tab Allergies No Known Allergies Allergy (Verified 02/26/24 15:40) Home Medications levetiracetam 500 mg tablet 500 mg PO BID 02/26/24 [History Confirmed 09/28/24] amoxicillin 875 mg-potassium clavulanate 125 mg tablet 1 tab PO Q12H 09/28/24 [History Confirmed 09/28/24] cholecalciferol (vitamin D3) 25 mcg (1,000 unit) tablet (Vitamin D3) 25 mcg PO DAILY 09/28/24 [History Confirmed 09/28/24] doxycycline hyclate 100 mg capsule 100 mg PO BID 09/28/24 [History Confirmed 09/28/24] polyethylene glycol 3350 17 gram/dose oral powder (Miralax) 17 g PO DAILY 09/28/24 [History Confirmed 09/28/24] Discharge Plan Discharge Patient Disposition: Home Condition: Stable Prescriptions: No Action levetiracetam 500 mg tablet 500 mg PO BID doxycycline hyclate 100 mg capsule 100 mg PO BID polyethylene glycol 3350 [Miralax] 17 gram/dose Powder 17 g PO DAILY amoxicillin-pot clavulanate 875-125 mg tablet 1 tab PO Q12H cholecalciferol (vitamin D3) [Vitamin D3] 25 mcg (1,000 unit) Tablet 25 mcg PO DAILY Discharge Order = DC NOW: Transfer Out of Facility (Order); Ordered 10/02/24 Ordered By: Zander Elliott Referrals: Gregory Castle MD [Primary Care Provider, [facility]] - 10/08/24 8:15 am Patient Instructions: Opioid Safety, Pain Management, Patient Portal & Anne Instructions Transfer Attestations Time Spent in Transfer Care: critical care time Critical Care Time (min): 70 Quality Metrics Clinical Quality Measures [ Acute Myocardial Infaction { Clinical Trial Participant: No; Contraindication to aspirin: None; Aspirin prescribed; Contraindication to statin: None; Statin prescribed; Contraindication to PCI: Medical contraindication;}] Coding Level of Care Code Critical Care >/= 30 minutes Diagnoses Nephrotic syndrome N04.9 Minimal change disease N05.0 NSTEMI (non-ST elevated myocardial infarction) I21.4 Atrial fibrillation with rapid ventricular response I48.91 Hemoptysis R04.2 Low vitamin D level R79.89 Mitral valve insufficiency I34.0 Time Spent (min) 70
--- NOTE | 2024-10-02 17:56 | PC.NURSE ---
ARJUN Alicia, in [facility] was called and given report. 4B [id number] is the floor and bed number the patient is going to. [phone] is the phone number of the floor at [facility].
[2024-10-07 01:58] LABS: Phospholipase A2 Elisa IgG <4 RU/mL; Phospholipase A2 IFA AB NEGATIVE (NEGATIVE)
[2024-10-08 08:24] LABS: ALPHA 1 GLOBULIN 0.2 g/dL (0.2-0.3); ALPHA 2 GLOBULIN 0.9 g/dL (0.5-0.9); BETA 1 GLOBULIN 0.2 g/dL (0.4-0.6); BETA 2 GLOBULIN 0.4 g/dL (0.2-0.5)
== END 2024-10-02 19:34 | disposition short-term general hospital (02) | DRG 698 ==
LOC: ER 14:05 → CSU 14:33 → ICU 10-02 13:34
PROVIDERS: Emergency Medicine; Hospitalist; Internal Medicine; Internal Medicine Nephrology; Admitting Provider Internal Medicine; Emergency Provider Family Medicine; PCP Family Medicine; Visit Provider Internal Medicine
DX: N04.9 Nephrotic syndrome with unspecified morphologic changes (principal); I21.4 Non-ST elevation (NSTEMI) myocardial infarction; R04.2 Hemoptysis; E87.1 Hypo-osmolality and hyponatremia; I48.91 Unspecified atrial fibrillation; E55.9 Vitamin D deficiency, unspecified; I34.0 Nonrheumatic mitral (valve) insufficiency; K76.0 Fatty (change of) liver, not elsewhere classified; F03.90 Unspecified dementia, unspecified severity, without behavioral disturbance, psychotic disturbance, mood disturbance, and anxiety; Z86.73 Personal history of transient ischemic attack (TIA), and cerebral infarction without residual deficits; N17.9 Acute kidney failure, unspecified; G40.909 Epilepsy, unspecified, not intractable, without status epilepticus; Z87.442 Personal history of urinary calculi; K59.00 Constipation, unspecified; N18.9 Chronic kidney disease, unspecified; E87.5 Hyperkalemia; Z82.49 Family history of ischemic heart disease and other diseases of the circulatory system
CPT/HCPCS: 36415; 71045; 76770; 80048; 80053; 80061; 81001; 82044; 82306; 82310; 82436; 82570; 83520; 83605; 83735; 83880; 83883; 83970; 84100; 84133; 84155; 84156; 84165; 84300; 84443; 84484; 84550; 85025; 85049; 85730; 86036; 86038; 86140; 86225; 86255; 86334; 86705; 86706; 86803; 87040; 87070; 87086; 87205; 87340; 93005; 93306; 94660; 96372; 96374; 96376; 99285; J1644; J1938; J2270; J2543; J7030; J7512; J9999; P9046